=== PATIENT | female | born 1945 | race Caucasian/White ===

== ENCOUNTER 2019-09-10 11:15 | Emergency (ER) | payer OTHER ==
[~2019-09-10] VITALS: Ht 152.4 cm; Wt 65.8 kg
--- OUTSIDE RECORDS SUMMARY | 2019-09-10 11:18 | XMS REPORT | Summary of Care ---
Author Author [facility] Address [address] [place] [address] Phone Unavailable Care Team Providers Care Plant Operations Worker Name Role Phone MILVIA Lopez, AYLA Unavailable Unavailable ROGELIO KAM [place], ISREAL Melton Unavailable Unavailable RYANNE CORREA, PRADEEP Villegas Unavailable Unavailable SHANTELLE DIANA, JOEL Unavailable Unavailable CHRISTOFER Farmer, VANI Unavailable Unavailable CHRISTOFER KAM [place], VANI CORBETT Unavailable Unavailable ROGELIO Farmer, ISREAL Unavailable Unavailable Rodney KAM, Dae Unavailable Unavailable KRISTINE MATTHEWS, JOSE Unavailable Unavailable MILVIA DIANA, AYLA Unavailable Unavailable CARMELO KAM, ARTUR Aaron Unavailable Unavailable Unavailable Unavailable Functional Status Name Dates Details Functional status health issues are not documented Status: Name Dates Details Cognitive status health issues are not documented Status: Problems Name Dates Details Skin lesion (709.9, L98.9) Status: Active Osteoporosis (733.00, M81.0) Status: Active Abrasion of ear (910.0, S00.419A) Status: Active Abnormal finding on thyroid function test (794.5, R94.6) Status: Active Abnormal AST and ALT (790.4, R74.8) Status: Active Abnormal antibody titer (795.79, R76.0) Status: Active Polyarthropathy, 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, 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 Plantar fasciitis (728.71, M72.2) Status: Active Candidiasis, cutaneous (112.3, B37.2) Status: Active Eczema intertrigo (695.89, L30.4) Status: Active Elevated WBCs (288.60, D72.829) Status: Active Dysphagia (787.20, R13.10) Status: Active Screen for colon cancer (V76.51, Z12.11) Status: Active Sore throat (462, J02.9) Status: Active Productive cough (786.2, R05) Status: Active Normal blood pressure Status: Active Chronic cough (786.2, R05) Status: Active Need for pneumococcal vaccination (V03.82, Z23) Status: Active Iron deficiency (280.9, E61.1) Status: Active GERD (gastroesophageal reflux disease) (530.81, K21.9) Status: Active Hypertrophy of nasal turbinates (478.0, J34.3) Status: Active Nasal polyp (471.9, J33.9) Status: Active Dysuria (788.1, R30.0) Status: Active Urinary tract infection (599.0, N39.0) Status: Active Abdominal pain, LLQ (left lower quadrant) (789.04, R10.32) Status: Active Influenza vaccine needed (V04.81, Z23) Status: Active Obesity (BMI 30.0-34.9) (278.00, E66.9) Status: Active Pain in both feet (729.5, M79.671) Status: Active Encounter for mini-mental status examination Status: Active Need for hepatitis C screening test (V73.89, Z11.59) Status: Active Sinusitis (473.9, J32.9) Status: Active Acute non-recurrent maxillary sinusitis (461.0, J01.00) Status: Active Acute pain of right knee (719.46, M25.561) Status: Active Renal cyst, left (753.10, N28.1) Status: Active Upper respiratory infection (465.9, J06.9) Status: Active Limb pain (729.5, M79.609) Status: Active 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, F34.1) Status: Active Postmenopausal hormone replacement therapy (V07.4, Z79.890) Status: Active Advance directive discussed with patient (V65.49, Z71.89) Status: Active Arthralgia of multiple sites (719.49, M25.50) Status: Active Acute vaginitis (616.10, N76.0) Status: Active At low risk for fall (V49.89, Z91.81) Status: Active Depression screening (V79.0, Z13.31) Status: Active 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, 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 History of dry mouth (V12.79, Z87.19) Status: Active Xeroderma (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.39, Q80.9) Status: Active Acute sinus infection (461.9, J01.90) Status: Active Acute upper respiratory infection (465.9, J06.9) Status: Active Other insomnia (780.52, G47.09) Status: Active Visit for screening mammogram (V76.12, Z12.31) Status: Active Osteopenia (733.90, M85.80) Status: Active Acute pain in left eye (379.91, H57.12) Status: Active Bilateral leg cramps (729.82, R25.2) Status: Active Anxiety (300.00, F41.9) Status: Active Seasonal allergic rhinitis (477.9, J30.2) Status: Active Acute bronchitis (466.0, J20.9) Status: Active Knee pain, bilateral (719.46, M25.561) Status: Active Other fatigue (780.79, R53.83) Status: Active 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, F34.1) Status: Active Essential hypertension (401.9, I10) Status: Active Abdominal pain, RUQ (789.01, R10.11) Status: Active Nevus, non-neoplastic (448.1, I78.1) Status: Active Constipation (564.00, K59.00) Status: Active GERD (gastroesophageal reflux disease) (530.81, K21.9) Status: Active History of colon polyps (V12.72, Z86.010) Status: Active Ear pain (388.70, H92.09) Status: Active 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4, R42) Status: Active Abscess of leg (682.6, L02.419) Status: Active Cat bite (879.8, W55.01XA) Status: Active Hyperlipidemia (272.4, E78.5) Status: Active Insomnia (780.52, G47.00) Status: Active Urinary symptom or sign (788.99, R39.9) Status: Active Hematuria (599.70, R31.9) Status: Active Asymptomatic microscopic hematuria (599.72, R31.21) Status: Active Fatigue (780.79, R53.83) Status: Active Shortness of breath (786.05, R06.02) Status: Active Acute bronchitis due to infection (466.0, J20.8) Status: Active Asthma (493.90, J45.909) Status: Active Encounter for screening mammogram for malignant neoplasm of breast (V76.12, Z12.31) Status: Active Estrogen deficiency (256.39, E28.39) Status: Active Dysfunction of left eustachian tube (381.81, H69.82) Status: Active Flu vaccine need (V04.81, Z23) Status: Active Diffuse abdominal pain (789.00, R10.84) Status: Active Candidiasis of breast (112.89, B37.89) Status: Active UTI (urinary tract infection) (599.0, N39.0) Status: Active H. pylori infection (041.86, A04.8) Status: Active Encounter to discuss test results (V65.49, Z71.2) Status: Active Screening for thyroid disorder (V77.0, Z13.29) Status: Active Abdominal pain (789.00, R10.9) Status: Active Hematuria, microscopic (599.72, R31.29) Status: Active Vaginal atrophy (627.3, N95.2) Status: Active Bunion, left (727.1, M21.612) Status: Active Decreased vision of left eye (369.8, H54.62) Status: Active H pylori ulcer (533.90, K27.9) Status: Active Heart palpitations (785.1, R00.2) Status: Active Tachycardia (785.0, R00.0) Status: Active Dry cough (786.2, R05) Status: Active Former smoker (V15.82, Z87.891) Status: Active Medications Name Dates Details Aspirin 81 MG TABS one daily Active Vitamin D3 TABS * Refills: 0 Active Probiotic CAPS * Refills: 0 Active Nystatin 950711 UNIT/GM External Cream APPLY A THIN LAYER TO AFFECTED AREA(S) AND RUB IN WELL TWICE DAILY. * Quantity: 1 Refills: 1 STEEL N.P., AYLA * Start : 14-Apr-2019 Active 30 GM Tube Benzonatate 100 MG Oral Capsule 1-2 caps as needed every 8 hours wit mucinex DM or Delsym OTC. * Quantity: 30 Refills: 0 STEEL N.P., AYLA * Start : 30-Jun-2019 Active Proventil HFA 108 (90 Base) MCG/ACT Inhalation Aerosol Solution INHALE 1 TO 2 PUFFS EVERY 4 TO 6 HOURS NEEDED. * Quantity: 1 Refills: 2 STEEL N.P., AYLA * Start : 20-Jan-2017 Active 6.7 GM Inhaler traZODone HCl - 50 MG Oral Tablet TAKE 1 TABLET AT BEDTIME NEEDED FOR SLEEP. * Quantity: 90 Refills: 1 STEEL N.P., AYLA * Start : 07-Apr-2017 Active Magnesium 400 MG Oral Tablet * Refills: 0 Active Atorvastatin Calcium 10 MG Oral Tablet TAKE 1 TABLET AT BEDTIME. * Quantity: 90 Refills: 1 STEEL N.P., AYLA * Start : 22-Sep-2016 Active Allergies and Adverse Reactions Name Dates Details Bactrim TABS (Allergy) Status: Active Macrobid CAPS (Allergy) Status: Active Iodine (Allergy) Status: Active Past Medical History Name Dates Details History of Acute recurrent sinusitis (461.9, J01.91) Status: Resolved History of allergic rhinitis (V12.69, Z87.09) Status: Resolved History of Anxiety (300.00, F41.9) Status: Resolved History of depression (V11.8, Z86.59) Status: Resolved History of dysthymia (V11.8, Z86.59) Status: Resolved History of Elevated liver function tests (790.6, R94.5) Status: Resolved History of fatigue (V13.89, Z87.898) Status: Resolved History of gastroesophageal reflux (GERD) (V12.79, Z87.19) Status: Resolved History of hiatal hernia (V12.79, Z87.19) Status: Resolved History of high cholesterol (V12.29, Z86.39) Status: Resolved History of Migraines (346.90, G43.909) Status: Resolved History of Multiparity (V61.5, Z64.1) Status: Resolved History of non-neoplastic nevus (V12.59, Z86.79) Status: Resolved History of osteopenia (V13.59, Z87.39) Status: Resolved History of osteoporosis (V13.59, Z87.39) Status: Resolved History of pneumonia (V12.61, Z87.01) Status: Resolved History of pulmonary emphysema (V12.69, Z87.09) Status: Resolved History of screening mammography (V15.89, Z92.89) Status: Resolved Personal history of asthma (V12.69, Z87.09) Status: Resolved Procedures Procedure Dates Details History of Hysterectomy Completed History of CABG Completed History of Bladder Surgery Completed History of Gallbladder surgery Completed History of Hysterectomy total Completed Immunization Name Dates Details Tdap (Adacel) on: Jun-2002 Pneumo on: Jun-2009 DT on: 23-Sep-2010 Fluzone INJ Lot #: [id number] on: 25-Apr-2013 Influenza on: Mar-2014 Zoster (Zostavax) on: 08-Mar-2014 Prevnar 13 Intramuscular Suspension Lot #: [id number] on: 21-Sep-2014 Fluzone INJ Lot #: [id number] on: 09-Feb-2015 Fluzone Quadrivalent 0.5 ML Intramuscular Suspension Prefilled Syringe Lot #: [id number] on: 20-Mar-2016 Fluzone High-Dose 0.5 ML Intramuscular Suspension Prefilled Syringe Lot #: [id number] on: 23-Apr-2017 Fluzone Quadrivalent 0.5 ML Intramuscular Suspension Lot #: [id number] on: 09-Mar-2018 Flucelvax Quadrivalent Intramuscular Suspension Lot #: [id number] on: 30-Mar-2019 Family History Name Dates Details Family history of Alzheimer Disease Comments: Family History Status: Active Name Dates Details Family history of Alzheimer's disease (V17.2, Z82.0) Status: Active Social History Name Dates Details - Status: Name Dates Details Former smoker Never smoker Former smoker Vital Signs Date Test Result Details :55 O2 SAT 97 % Status: Comments: Source: RA :51 BP Systolic 109 mm[Hg] Status: Comments: Location: LUE; Position: Sitting BP Diastolic 66 mm[Hg] Status: Comments: Location: LUE; Position: Sitting Height 60 in Status: Weight 148.125 lb Status: Body Mass Index Calculated 28.93 kg/m2 Status: Body Surface Area Calculated 1.64 m2 Status: Temperature 97.5 f Status: Comments: Method: Temporal Heart Rate 99 /min Status: Comments: Location: L Brachial Artery; Respiration Rate 16 /min Status: :01 Physical Findings 3 Status: Comments: PHQ-9 Adult Depression Screening :57 BP Systolic 125 mm[Hg] Status: Comments: Location: LUE; Position: Sitting BP Diastolic 71 mm[Hg] Status: Comments: Location: LUE; Position: Sitting Height 60 in Status: Weight 146.375 lb Status: Body Mass Index Calculated 28.59 kg/m2 Status: Body Surface Area Calculated 1.63 m2 Status: Temperature 97.8 f Status: Comments: Method: Temporal Heart Rate 114 /min Status: Comments: Location: L Brachial Artery; Respiration Rate 16 /min Status: Results Date Description Value Details Results not documented Plan of Care Name Dates Details Planned Observations Planned Goals not documented Planned Encounters Appointment; DAE SARAH M.D. On: 21-Jul-2019 13:45 Appointment; MARGARET TAPIA M.D. On: 02-Aug-2019 13:20 Appointment; PRADEEP PEARL D.O. On: 14-May-2020 14:10 Instructions Name Dates Details Instructions not documented Encounters Appointment; JOSE CARMONA P.A. Encounter Diagnosis: Problem not documented On: 17-Aug-2017 13:30 Appointment; FRANC ROBERTO M.D. Encounter Diagnosis: Problem not documented On: 01-Oct-2017 13:00 Appointment; JOSE CARMONA P.A. Encounter Diagnosis: Problem not documented On: 19-Oct-2017 11:15 Appointment; JOSE CARMONA P.ABlanco Encounter Diagnosis: Problem not documented On: 29-Oct-2017 13:00 Appointment; JOSE CARMONA PBlancoABlanco Encounter Diagnosis: Problem not documented On: 15-Dec-2017 10:15 Appointment; DAE SARAH M.D. Encounter Diagnosis: Problem not documented On: 24-Dec-2017 14:00 Appointment; BALJEET HARRIS M.D. Encounter Diagnosis: Problem not documented On: 28-Jan-2018 10:15 Appointment; AYLA STEEL NP Encounter Diagnosis: Problem not documented On: 23-Feb-2018 13:00 Appointment; AYLA STEEL CLEANER AND DYER Encounter Diagnosis: Problem not documented On: 09-Mar-2018 11:00 Appointment; AYLA STEEL NP Encounter Diagnosis: Problem not documented On: 09-Mar-2018 11:00 Appointment; JOSE CARMONA P.ABlanco Encounter Diagnosis: Problem not documented On: 16-Mar-2018 11:00 Appointment; JOSE CARMONA P.ABlanco Encounter Diagnosis: Problem not documented On: 16-Mar-2018 11:00 Appointment; JOSE CARMONA P.ABlanco Encounter Diagnosis: Problem not documented On: 16-Mar-2018 11:00 Appointment; [facility] Encounter Diagnosis: Problem not documented On: 18-Mar-2018 10:00 Appointment; [facility] Encounter Diagnosis: Problem not documented On: 18-Mar-2018 11:00 Appointment; JOSE CARMONA P.A. Encounter Diagnosis: Problem not documented On: 17-Jun-2018 11:00 Appointment; AYLA STEEL NP Encounter Diagnosis: Problem not documented On: 29-Jun-2018 14:15 Appointment; JOEL PEPPER NP Encounter Diagnosis: Problem not documented On: 17-Jul-2018 11:15 Appointment; AYLA STEEL NP Encounter Diagnosis: Problem not documented On: 30-Aug-2018 14:30 Appointment; AYLA STEEL NP Encounter Diagnosis: Problem not documented On: 22-Sep-2018 13:00 Appointment; AYLA STEEL CLEANER AND DYER Encounter Diagnosis: Problem not documented On: 13-Dec-2018 10:00 Appointment; AYLA STEEL NP Encounter Diagnosis: Problem not documented On: 25-Dec-2018 10:45 Appointment; AYLA STEEL NP Encounter Diagnosis: Problem not documented On: 28-Dec-2018 11:00 Appointment; AYLA STEEL NP Encounter Diagnosis: Problem not documented On: 26-Jan-2019 14:15 Appointment; PRADEEP PEARL D.O. Encounter Diagnosis: Problem not documented On: 14-Feb-2019 13:40 Appointment; AYLA STEEL NP Encounter Diagnosis: Problem not documented On: 03-Mar-2019 11:00 Appointment; JOEL PEPPER NP Encounter Diagnosis: Problem not documented On: 30-Mar-2019 13:30 Appointment; AYLA STEEL NP Encounter Diagnosis: Problem not documented On: 14-Apr-2019 14:30 Appointment; AYLA STEEL NP Encounter Diagnosis: Problem not documented On: 14-Apr-2019 14:30 Appointment; AYLA STEEL NP Encounter Diagnosis: Problem not documented On: 26-Apr-2019 9:30 Appointment; DAE SARAH M.D. Encounter Diagnosis: Problem not documented On: 13-May-2019 14:15 Appointment; PRADEEP PEARL D.O. Encounter Diagnosis: Problem not documented On: 16-May-2019 14:10 Appointment; AYLA STEEL NP Encounter Diagnosis: Problem not documented On: 23-Jun-2019 14:00 Appointment; AYLA STEEL NP Encounter Diagnosis: Problem not documented On: 30-Jun-2019 14:00
--- OUTSIDE RECORDS SUMMARY | 2019-09-10 11:18 | XMS REPORT | Summary of Care ---
Author Author Taylor Rae Unknown Address [facility] Phone Unavailable Care Team Providers Care Local Government Legislator Name Role Phone MILVIA Lopez, AYLA Unavailable Unavailable ROGELIO KAM [place], ISREAL Melton Unavailable Unavailable RYANNE CORREA, PRADEEP Villegas Unavailable Unavailable SHANTELLE DIANA, JOEL Unavailable Unavailable CHRISTOFER Farmer, VANI Unavailable Unavailable CHRISTOFER KAM [place], VANI CORBETT Unavailable Unavailable ROGELIO Farmer, ISREAL [...] Z87.891) Status: Active Medications Name Dates Details Atorvastatin Calcium 10 MG Oral Tablet TAKE 1 TABLET AT BEDTIME. Quantity: 90 MILVIA N.P., AYLA * Start : 22-Sep-2016 Active Aspirin 81 MG TABS one daily * Refills: 0 M.A. Active Magnesium 400 MG Oral Tablet * Refills: 0 M.A. Active Proventil HFA 108 (90 Base) MCG/ACT Inhalation Aerosol Solution INHALE 1 TO 2 PUFFS EVERY 4 TO 6 HOURS NEEDED. * Quantity: 1 Refills: 2 MILVIA N.P., AYLA * Start : 20-Jan-2017 Active 6.7 GM Inhaler traZODone HCl - 50 MG Oral Tablet TAKE 1 TABLET AT BEDTIME NEEDED FOR SLEEP. * Quantity: 90 Refills: 1 MILVIA N.P., AYLA * Start : 07-Apr-2017 Active Vitamin D3 TABS * Refills: 0 M.A. Active Probiotic CAPS * Refills: 0 M.A. Active Nystatin 699889 UNIT/GM External Cream APPLY A THIN LAYER TO AFFECTED AREA(S) AND RUB IN WELL TWICE DAILY. * Quantity: 1 Refills: 1 MILVIA N.P., AYLA * Start : 14-Apr-2019 Active 30 GM Tube Benzonatate 100 MG Oral Capsule 1-2 caps as needed every 8 hours wit mucinex DM or Delsym OTC. * Quantity: 30 Refills: 0 STEEL N.P., AYLA * Start : 30-Jun-2019 Active Allergies and Adverse Reactions Name Dates [...] DT on: 23-Sep-2010 Fluzone INJ Lot #: [id number] on: 25-Apr-2013 Influenza on: Mar-2014 Zoster (Zostavax) on: 08-Mar-2014 Prevnar 13 Intramuscular Suspension Lot #: [id number] on: 21-Sep-2014 Fluzone INJ Lot #: [id number] on: 09-Feb-2015 Fluzone Quadrivalent 0.5 ML Intramuscular Suspension Prefilled Syringe Lot #: [id number] on: 20-Mar-2016 Fluzone High-Dose 0.5 ML Intramuscular Suspension Prefilled Syringe Lot #: [id number] on: 23-Apr-2017 Fluzone Quadrivalent 0.5 ML Intramuscular Suspension Lot #: [id number] on: 09-Mar-2018 Flucelvax Quadrivalent Intramuscular Suspension Lot #: [id number] on: 30-Mar-2019 Family History Name Dates Details [...] DAE SARAH M.D. On: 21-Jul-2019 13:45 Appointment; PRADEEP PEARL D.O. On: 14-May-2020 14:10 Instructions Name Dates Details Instructions not documented Encounters Appointment; KARI MENSAH P.A. Encounter Diagnosis: Problem not documented On: 15-Jul-2017 12:30 Appointment; JOSE CARMONA P.A. Encounter Diagnosis: Problem not documented On: 17-Aug-2017 13:30 Appointment; FRANC ROBERTO M.D. Encounter Diagnosis: Problem not documented On: 01-Oct-2017 13:00 Appointment; CARMONA, JOSE, P.A. Encounter Diagnosis: Problem not documented On: 19-Oct-2017 11:15 Appointment; JOSE CARMONA P.A. Encounter Diagnosis: Problem not documented On: 29-Oct-2017 13:00 Appointment; JOSE CARMONA P.A. Encounter Diagnosis: Problem not documented On: 15-Dec-2017 10:15 Appointment; DAE SARAH M.D. Encounter Diagnosis: Problem not documented On: 24-Dec-2017 14:00 Appointment; BALJEET HARRIS M.D. Encounter Diagnosis: Problem not documented On: 28-Jan-2018 10:15 Appointment; AYLA STEEL NP Encounter Diagnosis: Problem not documented On: 23-Feb-2018 13:00 Appointment; AYLA STEEL NP Encounter Diagnosis: Problem not documented On: 09-Mar-2018 11:00 Appointment; AYLA STEEL NP Encounter Diagnosis: Problem not documented On: 09-Mar-2018 11:00 Appointment; JOSE CARMONA, P.A. Encounter Diagnosis: Problem not documented On: 16-Mar-2018 11:00 Appointment; JOSE CARMONA, P.A. Encounter Diagnosis: Problem not documented On: 16-Mar-2018 11:00 Appointment; JOSE CARMONA, P.A. Encounter Diagnosis: Problem not documented On: 16-Mar-2018 11:00 Appointment; [facility] Encounter Diagnosis: Problem not documented On: 18-Mar-2018 10:00 Appointment; [facility] Encounter Diagnosis: Problem not [...] documented On: 22-Sep-2018 13:00 Appointment; AYLA STEEL NP Encounter Diagnosis: Problem not documented On: 13-Dec-2018 [...]
--- OUTSIDE RECORDS SUMMARY | 2019-09-10 11:18 | XMS REPORT | Summary of Care ---
Author Author Bertha Alfred M.A. Organization Unknown Address [facility] Phone Unavailable Care Team Providers Care House Mover Supervisor Name Role Phone Bertha Alfred M.A. Unavailable Unavailable MILVIA Lopez, AYLA Unavailable Unavailable ROGELIO KAM [place], ISREAL Melton Unavailable Unavailable RYANNE CORREA, PRADEEP Villegas Unavailable Unavailable SHANTELLE DIANA, JOEL Unavailable Unavailable CHRISTOFER Farmer, VANI Unavailable Unavailable CHRISTOFER KAM [place], VANI CORBETT Unavailable Unavailable ROGELIO Farmer, ISREAL [...] TAKE 1 TABLET AT BEDTIME. Quantity: 90 STEEL N.P., AYLA * Start : 22-Sep-2016 Active Aspirin 81 MG TABS one daily * Refills: 0 Active Magnesium 400 MG Oral Tablet * Refills: 0 Active Proventil HFA 108 (90 Base) MCG/ACT [...] Probiotic CAPS * Refills: 0 Active Nystatin 720642 UNIT/GM External Cream APPLY A THIN LAYER [...] DT on: 23-Sep-2010 Fluzone INJ Lot #: [id number] on: 25-Apr-2013 Influenza on: Mar-2014 Zoster (Zostavax) on: 08-Mar-2014 Prevnar 13 Intramuscular Suspension Lot #: [id number] on: 21-Sep-2014 Fluzone INJ Lot #: [id number] on: 09-Feb-2015 Fluzone Quadrivalent 0.5 ML Intramuscular Suspension Prefilled Syringe Lot #: [id number] on: 20-Mar-2016 Fluzone High-Dose 0.5 ML Intramuscular Suspension Prefilled Syringe Lot #: [id number] on: 23-Apr-2017 Fluzone Quadrivalent 0.5 ML Intramuscular Suspension Lot #: [id number] on: 09-Mar-2018 Flucelvax Quadrivalent Intramuscular Suspension Lot #: [id number] on: 30-Mar-2019 Family History Name Dates Details [...] documented On: 09-Mar-2018 11:00 Appointment; JOSE CARMONA P.A. Encounter Diagnosis: Problem not documented On: 16-Mar-2018 11:00 Appointment; JOSE CARMONA P.ABlanco Encounter Diagnosis: Problem not documented On: 16-Mar-2018 11:00 Appointment; JOSE CARMONA P.A. Encounter Diagnosis: Problem not documented On: 16-Mar-2018 11:00 Appointment; [facility] Encounter Diagnosis: Problem not documented On: 18-Mar-2018 10:00 Appointment; [facility] Encounter Diagnosis: Problem not documented On: 18-Mar-2018 11:00 Appointment; JOSE CARMONA P.ABlanco Encounter Diagnosis: Problem not documented On: 17-Jun-2018 [...]
--- OUTSIDE RECORDS SUMMARY | 2019-09-10 11:18 | XMS REPORT | Summary of Care ---
Author Author Sera Fleming Organization Unknown Address Unknown Phone Unavailable Care Team Providers Care Special Education Teaching Assistant Name Role Phone Sera Fleming Unavailable Unavailable MILVIA NBlancoPBlanco, AYLA Unavailable Unavailable ROGELIO KAM [place], ISREAL Melton Unavailable Unavailable RYANNE CORREA, PRADEEP Villegas Unavailable Unavailable SHANTELLE DIANA, JOEL Unavailable Unavailable CHRISTOFER Farmer, VANI Unavailable Unavailable CHRISTOFER KAM [place], VANI CORBETT Unavailable Unavailable ROGELIO Farmer, ISREAL [...] Probiotic CAPS * Refills: 0 Active Nystatin 737928 UNIT/GM External Cream APPLY A THIN LAYER [...] DT on: 23-Sep-2010 Fluzone INJ Lot #: [id number] on: 25-Apr-2013 Influenza on: Mar-2014 Zoster (Zostavax) on: 08-Mar-2014 Prevnar 13 Intramuscular Suspension Lot #: [id number] on: 21-Sep-2014 Fluzone INJ Lot #: [id number] on: 09-Feb-2015 Fluzone Quadrivalent 0.5 ML Intramuscular Suspension Prefilled Syringe Lot #: [id number] on: 20-Mar-2016 Fluzone High-Dose 0.5 ML Intramuscular Suspension Prefilled Syringe Lot #: [id number] on: 23-Apr-2017 Fluzone Quadrivalent 0.5 ML Intramuscular Suspension Lot #: [id number] on: 09-Mar-2018 Flucelvax Quadrivalent Intramuscular Suspension Lot #: [id number] on: 30-Mar-2019 Family History Name Dates Details [...] Observations Planned Goals not documented Planned Encounters Cardiology Referral Appointment; DAE SARAH M.D. On: 21-Jul-2019 13:45 [...] documented On: 01-Oct-2017 13:00 Appointment; JOSE CARMONA P.ABlanco Encounter Diagnosis: Problem not documented On: 19-Oct-2017 11:15 Appointment; JOSE CARMONA PBlancoABlanco Encounter Diagnosis: Problem not documented On: 29-Oct-2017 [...] documented On: 16-Mar-2018 11:00 Appointment; JOSE CARMONA PBlancoABlanco Encounter Diagnosis: Problem not documented On: 16-Mar-2018 [...]
--- OUTSIDE RECORDS SUMMARY | 2019-09-10 11:19 | XMS REPORT | Summary of Care ---
Author Author AZEEM Lopez, PRESTON Organization Unknown Address Unknown Phone Unavailable Care Team Providers Care Assembler Skylights Name Role Phone MILVIA Lopez, AYLA Unavailable Unavailable KEARA Farmer, DAE Unavailable Unavailable ROGELIO KAM [place], ISREAL Melton Unavailable Unavailable RYANNE CORREA, PRADEEP Villegas Unavailable Unavailable SHANTELLE DIANA, JOEL Unavailable Unavailable CHRISTOFER Farmer, VANI Unavailable Unavailable CHRISTOFER KAM [place], VANI CORBETT Unavailable Unavailable ROGELIO Farmer, ISREAL Unavailable Unavailable Keara KAM, Dae Unavailable Unavailable KRISTINE MATTHEWS, JOSE [...] Upper respiratory infection (465.9, J06.9) Status: Active 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90) [...] Active 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, 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) Status: Active Allergic rhinitis due to pollen (477.0, J30.1) Status: Active 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, 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) Status: Active Gastric reflux syndrome (530.81, K21.9) [...] Status: Active Fatigue (780.79, R53.83) Status: Active Asthma (493.90, J45.909) Status: Active Shortness of breath (786.05, R06.02) Status: Active Encounter for screening mammogram for malignant neoplasm of breast (V76.12, Z12.31) Status: Active Estrogen deficiency (256.39, E28.39) Status: Active Acute bronchitis due to infection (466.0, J20.8) Status: Active Dysfunction of left eustachian tube (381.81, H69.82) Status: Active Flu vaccine need (V04.81, Z23) Status: Active Diffuse abdominal pain (789.00, R10.84) Status: Active Candidiasis of breast (112.89, B37.89) Status: Active UTI (urinary tract infection) (599.0, N39.0) Status: Active Encounter to discuss test results (V65.49, Z71.2) Status: Active H. pylori infection (041.86, A04.8) Status: Active Screening for thyroid disorder (V77.0, Z13.29) Status: Active Hematuria, microscopic (599.72, R31.29) Status: Active Vaginal atrophy (627.3, N95.2) Status: Active Bunion, left (727.1, M21.612) Status: Active Decreased vision of left eye (369.8, H54.62) Status: Active Tachycardia (785.0, R00.0) Status: Active Heart palpitations (785.1, R00.2) Status: Active Dry cough (786.2, R05) Status: Active Former smoker (V15.82, Z87.891) Status: Active Abdominal pain (789.00, R10.9) Status: Active H pylori ulcer (533.90, K27.9) Status: Active Medications Name Dates Details Atorvastatin [...] Probiotic CAPS * Refills: 0 Active Nystatin 942569 UNIT/GM External Cream APPLY A THIN LAYER [...] DT on: 23-Sep-2010 Fluzone INJ Lot #: [id number] on: 25-Apr-2013 Influenza on: Mar-2014 Zoster (Zostavax) on: 08-Mar-2014 Prevnar 13 Intramuscular Suspension Lot #: [id number] on: 21-Sep-2014 Fluzone INJ Lot #: [id number] on: 09-Feb-2015 Fluzone Quadrivalent 0.5 ML Intramuscular Suspension Prefilled Syringe Lot #: [id number] on: 20-Mar-2016 Fluzone High-Dose 0.5 ML Intramuscular Suspension Prefilled Syringe Lot #: [id number] on: 23-Apr-2017 Fluzone Quadrivalent 0.5 ML Intramuscular Suspension Lot #: [id number] on: 09-Mar-2018 Flucelvax Quadrivalent Intramuscular Suspension Lot #: [id number] on: 30-Mar-2019 Family History Name Dates Details [...] Problem not documented On: 15-Dec-2017 10:15 Appointment; DEA SARAH M.D. Encounter Diagnosis: Problem not documented [...] Diagnosis: Problem not documented On: 30-Jun-2019 14:00 Appointment; DAE SARAH M.D. Encounter Diagnosis: Problem not documented On: 21-Jul-2019 13:45
--- OUTSIDE RECORDS SUMMARY | 2019-09-10 11:19 | XMS REPORT | Summary of Care ---
Author Author Alejandra Dean M.A. 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.1, I78.1) Status: Active GERD (gastroesophageal reflux disease) (530.81, [...] of left eye (369.8, H54.62) Status: Active Heart palpitations (785.1, R00.2) Status: Active Tachycardia (785.0, R00.0) Status: Active Dry cough (786.2, R05) Status: Active Former smoker (V15.82, Z87.891) Status: Active Abdominal pain (789.00, R10.9) Status: Active H pylori ulcer (533.90, K27.9) Status: Active Constipation (564.00, K59.00) Status: Active Medications Name Dates Details Atorvastatin Calcium 10 MG Oral Tablet TAKE 1 TABLET BY MOUTH AT BEDTIME Quantity: 90 STEEL N.P., AYLA * Start : 22-Sep-2016 Active Aspirin 81 MG TABS one daily * Refills: 0 Active Magnesium 400 MG Oral Tablet * Refills: 0 Active Vitamin D3 TABS * Refills: 0 Active Probiotic CAPS * Refills: 0 Active traZODone HCl - 50 MG Oral Tablet TAKE 1 TABLET AT BEDTIME NEEDED FOR SLEEP. * Quantity: 90 Refills: 1 STEEL N.P., AYLA * Start : 07-Apr-2017 Active Proventil HFA 108 (90 Base) MCG/ACT Inhalation Aerosol Solution INHALE 1 TO 2 PUFFS EVERY 4 TO 6 HOURS NEEDED. * Quantity: 1 Refills: 2 STEEL N.P., AYLA * Start : 20-Jan-2017 Active 6.7 GM Inhaler Nystatin 399551 UNIT/GM External Cream APPLY A THIN LAYER [...] DT on: 23-Sep-2010 Fluzone INJ Lot #: [id number] on: 25-Apr-2013 Influenza on: Mar-2014 Zoster (Zostavax) on: 08-Mar-2014 Prevnar 13 Intramuscular Suspension Lot #: [id number] on: 21-Sep-2014 Fluzone INJ Lot #: [id number] on: 09-Feb-2015 Fluzone Quadrivalent 0.5 ML Intramuscular Suspension Prefilled Syringe Lot #: [id number] on: 20-Mar-2016 Fluzone High-Dose 0.5 ML Intramuscular Suspension Prefilled Syringe Lot #: [id number] on: 23-Apr-2017 Fluzone Quadrivalent 0.5 ML Intramuscular Suspension Lot #: [id number] on: 09-Mar-2018 Flucelvax Quadrivalent Intramuscular Suspension Lot #: [id number] on: 30-Mar-2019 Family History Name Dates Details Family history of Alzheimer Disease Comments: Family History Status: Active Name Dates Details Family history of Alzheimer's disease (V17.2, Z82.0) Status: Active Social History Name Dates Details - Status: Name Dates Details Former smoker Never smoker Former smoker Vital Signs Date Test Result Details :39 BP Systolic 96 mm[Hg] Status: Comments: Location: LUE; Position: Sitting BP Diastolic 59 mm[Hg] Status: Comments: Location: LUE; Position: Sitting Height 60 in Status: Weight 145 lb Status: Body Mass Index Calculated 28.32 kg/m2 Status: Body Surface Area Calculated 1.63 m2 Status: Heart Rate 91 /min Status: Comments: Location: L Radial; Quality: Normal :55 O2 SAT 97 % Status: Comments: Source: RA :51 BP Systolic 109 mm[Hg] Status: Comments: Location: LUE; Position: Sitting BP Diastolic 66 mm[Hg] Status: Comments: Location: LUE; Position: Sitting Height 60 in Status: Weight 148.125 lb Status: Body Mass Index Calculated 28.93 kg/m2 Status: Body Surface Area Calculated 1.64 m2 Status: Heart Rate 99 /min Status: Comments: Location: L Brachial Artery; Temperature 97.5 f Status: Comments: Method: Temporal Respiration Rate 16 /min Status: :01 Physical Findings 3 Status: Comments: PHQ-9 Adult Depression Screening :57 BP Systolic 125 mm[Hg] Status: Comments: Location: LUE; Position: Sitting BP Diastolic 71 mm[Hg] Status: Comments: Location: LUE; Position: Sitting Height 60 in Status: Weight 146.375 lb Status: Body Mass Index Calculated 28.59 kg/m2 Status: Body Surface Area Calculated 1.63 m2 Status: Heart Rate 114 /min Status: Comments: Location: L Brachial Artery; Temperature 97.8 f Status: Comments: Method: Temporal Respiration Rate 16 /min Status: Results Date Description Value Details Results not documented Plan of Care Name Dates Details Planned Observations Planned Goals not documented Planned Encounters Appointment; AYLA STEEL NP On: 25-Jul-2019 12:30 Appointment; MARGARET TAPIA M.D. On: 02-Aug-2019 13:20 Appointment; DAE SARAH M.D. On: 20-Jan-2020 13:45 Appointment; PRADEEP PEARL D.O. On: 14-May-2020 14:10 Interventions Provided Medication Changes* Atorvastatin Calcium 10 MG Oral Tablet - Renew Instructions Name Dates Details Instructions not documented [...] Problem not documented On: 16-Mar-2018 11:00 Appointment; [place], ECHO Encounter Diagnosis: Problem not documented On: 18-Mar-2018 10:00 Appointment; [facility], ECHO Encounter Diagnosis: Problem not documented On: 18-Mar-2018 11:00 Appointment; JOSE CARMONA P.A. Encounter Diagnosis: Problem not documented On: 17-Jun-2018 11:00 Appointment; AYLA STEEL NP Encounter Diagnosis: Problem not documented On: 29-Jun-2018 14:15 Appointment; JOEL PEPPER PUBLIC POLICY ASSOCIATE Encounter Diagnosis: Problem not documented On: 17-Jul-2018 11:15 Appointment; AYLA STEEL, PUBLIC POLICY ASSOCIATE Encounter Diagnosis: Problem not documented On: 30-Aug-2018 14:30 Appointment; AYLA STEEL PUBLIC POLICY ASSOCIATE Encounter Diagnosis: Problem not documented On: 22-Sep-2018 13:00 Appointment; МАРИЯ STEELI, PUBLIC POLICY ASSOCIATE Encounter Diagnosis: Problem not documented On: 13-Dec-2018 10:00 Appointment; AYLA STEEL, PUBLIC POLICY ASSOCIATE Encounter Diagnosis: Problem not documented On: 25-Dec-2018 10:45 Appointment; AYLA STEEL, PUBLIC POLICY ASSOCIATE Encounter Diagnosis: Problem not documented On: 28-Dec-2018 11:00 Appointment; AYLA STEEL, PUBLIC POLICY ASSOCIATE Encounter Diagnosis: Problem not documented On: 26-Jan-2019 14:15 Appointment; PRADEEP PEARL D.O. Encounter Diagnosis: Problem not documented On: 14-Feb-2019 13:40 Appointment; AYLA STEEL PUBLIC POLICY ASSOCIATE Encounter Diagnosis: Problem not documented On: 03-Mar-2019 11:00 Appointment; JOEL PEPPER PUBLIC POLICY ASSOCIATE Encounter Diagnosis: Problem not documented On: 30-Mar-2019 13:30 Appointment; AYLA STEEL PUBLIC POLICY ASSOCIATE Encounter Diagnosis: Problem not documented On: 14-Apr-2019 14:30 Appointment; AYLA STEEL, PUBLIC POLICY ASSOCIATE Encounter Diagnosis: Problem not documented On: 14-Apr-2019 14:30 Appointment; AYLA STEEL PUBLIC POLICY ASSOCIATE Encounter Diagnosis: Problem not documented On: 26-Apr-2019 9:30 Appointment; DAE SARAH M.D. Encounter Diagnosis: Problem not documented On: 13-May-2019 14:15 Appointment; PRADEEP PEARL D.O. Encounter Diagnosis: Problem not documented On: 16-May-2019 14:10 Appointment; AYLA STEEL PUBLIC POLICY ASSOCIATE Encounter Diagnosis: Problem not documented On: 23-Jun-2019 14:00 Appointment; МАРИЯ STEELI, PUBLIC POLICY ASSOCIATE Encounter Diagnosis: Problem not documented On: 30-Jun-2019 14:00 Appointment; DAE SARAH M.D. Encounter Diagnosis: Problem not documented On: 21-Jul-2019 13:45
--- OUTSIDE RECORDS SUMMARY | 2019-09-10 11:19 | XMS REPORT | Summary of Care ---
Author Author REGINA Farmer, CHETAN Velazquez Unknown Address Unknown Phone Unavailable Care Team Providers Care Public Administration Professor Name Role Phone AYLA STEEL APRN Unavailable Unavailable REGINA Farmer, CHETAN Unavailable Unavailable ROGELIO KAM [place], ISREAL Melton Unavailable Unavailable RYANNE CORREA, PRADEEP Villegas Unavailable Unavailable SHANTELLE HOYTP, JOEL Unavailable Unavailable Regina KAM, Chetan Unavailable Unavailable CHRISTOFER Farmer, VANI Unavailable Unavailable CHRISTOFER KAM [place], VANI CORBETT Unavailable Unavailable ROGELIO Farmer, ISREAL Unavailable Unavailable Dae Sarah MD Unavailable Unavailable KRISTINE MATTHEWS, JOSE Unavailable Unavailable [...] Status: Active 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, F34.1) Status: Active Abdominal pain, RUQ (789.01, R10.11) [...] of left eye (369.8, H54.62) Status: Active Dry cough (786.2, R05) Status: Active Abdominal pain (789.00, R10.9) Status: Active H pylori ulcer (533.90, K27.9) Status: Active Constipation (564.00, K59.00) Status: Active Former smoker (V15.82, Z87.891) Status: Active Essential hypertension (401.9, I10) Status: Active Heart palpitations (785.1, R00.2) Status: Active Tachycardia (785.0, R00.0) Status: Active Medications Name Dates Details Atorvastatin Calcium 10 MG Oral Tablet TAKE 1 TABLET BY MOUTH AT BEDTIME Quantity: 90 AYLA STEEL APRN * Start : 22-Sep-2016 Active Aspirin 81 MG TABS one daily * Refills: 0 Active Magnesium 400 MG Oral Tablet * Refills: 0 Active Proventil HFA 108 (90 Base) MCG/ACT Inhalation Aerosol Solution INHALE 1 TO 2 PUFFS EVERY 4 TO 6 HOURS NEEDED. * Quantity: 1 Refills: 2 AYLA STEEL APRN * Start : 20-Jan-2017 Active 6.7 GM Inhaler traZODone HCl - 50 MG Oral Tablet TAKE 1 TABLET AT BEDTIME NEEDED FOR SLEEP. * Quantity: 90 Refills: 1 AYLA STEEL APRN * Start : 07-Apr-2017 Active Vitamin D3 TABS * Refills: 0 Active Probiotic CAPS * Refills: 0 Active Nystatin 810109 UNIT/GM External Cream APPLY A THIN LAYER TO AFFECTED AREA(S) AND RUB IN WELL TWICE DAILY. * Quantity: 1 Refills: 1 AYLA STEEL APRN * Start : 14-Apr-2019 Active 30 GM Tube Benzonatate 100 MG Oral Capsule 1-2 caps as needed every 8 hours wit mucinex DM or Delsym OTC. * Quantity: 30 Refills: 0 AYLA STEEL APRN * Start : 30-Jun-2019 Active Cranberry CAPS TAKE 1 CAPSULE DAILY * Refills: 0 Active Allergies and Adverse Reactions Name Dates [...] Z87.09) Status: Resolved Procedures Procedure Dates Details [N] Holter Monitor-24 hr. Date: 02-Aug-2019 History of Hysterectomy Completed History of Bladder Surgery Completed History of Gallbladder surgery Completed History of Hysterectomy total Completed History of CABG Completed Immunization Name Dates Details Tdap (Adacel) on: Jun-2002 Pneumo on: Jun-2009 DT on: 23-Sep-2010 Fluzone INJ Lot #: [id number] on: 25-Apr-2013 Influenza on: Mar-2014 Zoster (Zostavax) on: 08-Mar-2014 Prevnar 13 Intramuscular Suspension Lot #: [id number] on: 21-Sep-2014 Fluzone INJ Lot #: [id number] on: 09-Feb-2015 Fluzone Quadrivalent 0.5 ML Intramuscular Suspension Prefilled Syringe Lot #: [id number] on: 20-Mar-2016 Fluzone High-Dose 0.5 ML Intramuscular Suspension Prefilled Syringe Lot #: [id number] on: 23-Apr-2017 Fluzone Quadrivalent 0.5 ML Intramuscular Suspension Lot #: [id number] on: 09-Mar-2018 Flucelvax Quadrivalent Intramuscular Suspension Lot #: [id number] on: 30-Mar-2019 Family History Name Dates Details Family history of Alzheimer's disease (V17.2, Z82.0) Comments: Family History Status: Active Name Dates Details FH: CABG (coronary artery bypass surgery) (V17.3, Z82.49) Status: Active Name Dates Details Family history of Alzheimer's disease (V17.2, Z82.0) Status: Active Name Dates Details Family history of cerebrovascular accident (CVA) (V17.1, Z82.3) Status: Active Name Dates Details Family history of cardiac disorder (V17.49, Z82.49) Status: Active Social History Name Dates Details - Status: Name Dates Details Ex-smoker (finding) Never smoked tobacco (finding) Ex-smoker (finding) Vital Signs Date Test Result Details [id number] Systolic blood pressure 113 mm[Hg] Status: Comments: Location: LUE; Position: Sitting Diastolic blood pressure 65 mm[Hg] Status: Comments: Location: LUE; Position: Sitting Body height 60 in Status: Weight 145.5 lb Status: Body mass index (BMI) [Ratio] 28.42 kg/m2 Status: Body surface area Derived from formula 1.63 m2 Status: Heart Rate 77 /min Status: Respiratory rate 16 /min Status: [id number] Systolic blood pressure 96 mm[Hg] Status: Comments: Location: LUE; Position: Sitting Diastolic blood pressure 59 mm[Hg] Status: Comments: Location: LUE; Position: Sitting Body height 60 in Status: Weight 145 lb Status: Body mass index (BMI) [Ratio] 28.32 kg/m2 Status: Body surface area Derived from formula 1.63 m2 Status: Heart Rate 91 /min Status: Comments: Location: L Radial; Results Date Description Value Details Results not documented Plan of Care Name Dates Details Planned Observations [N] Holter Monitor-24 hr. On: 02-Aug-2019 Intent Planned Goals not documented Planned Encounters Appointment; JOANNA OJEDA On: 11-Aug-2019 14:00 Appointment; CHETAN TAPIA M.D. On: 06-Sep-2019 14:40 Appointment; DAE SARAH M.D. On: 20-Jan-2020 13:45 Appointment; PRADEEP PEARL D.O. On: 14-May-2020 14:10 Interventions Provided Labs/Procedures/Imaging* Tobacco Use Screening; Done: 02 Aug 2019 Plan* We will obtain 24h holter monitor for now and she will follow up with results Instructions Name Dates Details Instructions not documented Encounters Appointment; JOSE CARMONA P.A. Encounter Diagnosis: Problem not documented On: 17-Aug-2017 13:30 Appointment; FRANC ROBERTO M.D. Encounter Diagnosis: Problem not documented On: 01-Oct-2017 13:00 Appointment; JOSE CARMONA P.A. Encounter Diagnosis: Problem not documented On: 19-Oct-2017 11:15 Appointment; JOSE CARMONA P.A. Encounter Diagnosis: Problem not documented On: 29-Oct-2017 13:00 Appointment; JOSE CARMONA P.ABlanco Encounter Diagnosis: Problem not documented On: 15-Dec-2017 10:15 Appointment; DAE SARAH M.D. Encounter Diagnosis: Problem not documented On: 24-Dec-2017 14:00 Appointment; BALJEET HARRIS M.D. Encounter Diagnosis: Problem not documented On: 28-Jan-2018 10:15 Appointment; AYLA STEEL APRN Encounter Diagnosis: Problem not documented On: 23-Feb-2018 13:00 Appointment; AYLA STEEL APRN Encounter Diagnosis: Problem not documented On: 09-Mar-2018 11:00 Appointment; AYLA STEEL APRN Encounter Diagnosis: Problem not documented On: 09-Mar-2018 11:00 Appointment; JOSE CARMONA PBlancoABlanco Encounter Diagnosis: Problem not documented On: 16-Mar-2018 11:00 Appointment; JOSE CARMONA PBlancoABlanco Encounter Diagnosis: Problem not documented On: 16-Mar-2018 11:00 Appointment; JOSE CARMONA PBlancoABlanco Encounter Diagnosis: Problem not documented On: 16-Mar-2018 11:00 Appointment; [place]-[facility], ECHO Encounter Diagnosis: Problem not documented On: 18-Mar-2018 10:00 Appointment; [place], ECHO Encounter Diagnosis: Problem not documented On: 18-Mar-2018 11:00 Appointment; JOSE CARMONA P.A. Encounter Diagnosis: Problem not documented On: 17-Jun-2018 11:00 Appointment; AYLA STEEL APRN Encounter Diagnosis: Problem not documented On: 29-Jun-2018 14:15 Appointment; JOEL PEPPER APRN Encounter Diagnosis: Problem not documented On: 17-Jul-2018 11:15 Appointment; AYLA STEEL SEISMIC PROSPECTING OBSERVER Encounter Diagnosis: Problem not documented On: 30-Aug-2018 14:30 Appointment; AYLA STEEL APRN Encounter Diagnosis: Problem not documented On: 22-Sep-2018 13:00 Appointment; AYLA STEEL SEISMIC PROSPECTING OBSERVER Encounter Diagnosis: Problem not documented On: 13-Dec-2018 10:00 Appointment; AYLA STEEL APRN Encounter Diagnosis: Problem not documented On: 25-Dec-2018 10:45 Appointment; AYLA STEEL APRN Encounter Diagnosis: Problem not documented On: 28-Dec-2018 11:00 Appointment; AYLA STEEL APRN Encounter Diagnosis: Problem not documented On: 26-Jan-2019 14:15 Appointment; PRADEEP PEARL D.O. Encounter Diagnosis: Problem not documented On: 14-Feb-2019 13:40 Appointment; AYLA STEEL APRN Encounter Diagnosis: Problem not documented On: 03-Mar-2019 11:00 Appointment; JOEL PEPPER APRN Encounter Diagnosis: Problem not documented On: 30-Mar-2019 13:30 Appointment; AYLA STEEL APRN Encounter Diagnosis: Problem not documented On: 14-Apr-2019 14:30 Appointment; AYLA STEEL SEISMIC PROSPECTING OBSERVER Encounter Diagnosis: Problem not documented On: 14-Apr-2019 14:30 Appointment; AYLA STEEL APRN Encounter Diagnosis: Problem not documented On: 26-Apr-2019 9:30 Appointment; DAE SARAH M.D. Encounter Diagnosis: Problem not documented On: 13-May-2019 14:15 Appointment; PRADEEP PEARL D.O. Encounter Diagnosis: Problem not documented On: 16-May-2019 14:10 Appointment; AYLA STEEL APRN Encounter Diagnosis: Problem not documented On: 23-Jun-2019 14:00 Appointment; AYLA STEEL APRN Encounter Diagnosis: Problem not documented On: 30-Jun-2019 14:00 Appointment; DAE SARAH M.D. Encounter Diagnosis: Problem not documented On: 21-Jul-2019 13:45 Appointment; CHETAN TAPIA M.D. Encounter Diagnosis: Problem not documented On: 02-Aug-2019 13:20
--- OUTSIDE RECORDS SUMMARY | 2019-09-10 11:19 | XMS REPORT | Summary of Care ---
Author Author [facility] Address [address] [place] [address] Phone Unavailable Care Team Providers Care Requirements Manager Name Role Phone MILVIA Lopez, AYLA Unavailable Unavailable ROGELIO KAM [place], ISREAL Melton Unavailable Unavailable RYANNE CORREA, PRADEEP Villegas Unavailable Unavailable SHANTELLE DIANA, JOEL Unavailable Unavailable CHRISTOFER Farmer, VANI Unavailable Unavailable CHRISTOFER KAM ID, VANI CORBETT Unavailable Unavailable ROGELIO Farmer, ISREAL [...] Active Bunion, left (727.1, M21.612) Status: Active H pylori ulcer (533.90, K27.9) Status: Active Decreased vision of left eye (369.8, H54.62) Status: Active Tachycardia (785.0, R00.0) Status: Active Heart palpitations (785.1, R00.2) Status: Active Dry cough (786.2, R05) Status: Active Former smoker (V15.82, Z87.891) Status: Active Medications Name Dates Details Vitamin D3 TABS Active Probiotic CAPS * Refills: 0 Active Nystatin 601890 UNIT/GM External Cream APPLY A THIN LAYER TO AFFECTED AREA(S) AND RUB IN WELL TWICE DAILY. * Quantity: 1 Refills: 1 MILVIA N.P.AYLA * Start : 14-Apr-2019 Active 30 GM Tube traZODone HCl - 50 MG Oral Tablet TAKE 1 TABLET AT BEDTIME NEEDED FOR SLEEP. * Quantity: 90 Refills: 1 MILVIA N.P.AYLA * Start : 07-Apr-2017 Active Benzonatate 100 MG Oral Capsule 1-2 caps as needed every 8 hours wit mucinex DM or Delsym OTC. * Quantity: 30 Refills: 0 MILVIA N.P., AYLA * Start : 30-Jun-2019 Active Proventil HFA 108 (90 Base) MCG/ACT Inhalation Aerosol Solution INHALE 1 TO 2 PUFFS EVERY 4 TO 6 HOURS NEEDED. * Quantity: 1 Refills: 2 MILVIA N.P., AYLA * Start : 20-Jan-2017 Active 6.7 GM Inhaler Aspirin 81 MG TABS one daily * Refills: 0 Active Atorvastatin Calcium 10 MG Oral Tablet TAKE 1 TABLET AT BEDTIME. * Quantity: 90 Refills: 1 MILVIA N.P.AYLA * Start : 22-Sep-2016 Active Magnesium 400 MG Oral Tablet * Refills: 0 Active Allergies and Adverse [...] DT on: 23-Sep-2010 Fluzone INJ Lot #: [id number] on: 25-Apr-2013 Influenza on: Mar-2014 Zoster (Zostavax) on: 08-Mar-2014 Prevnar 13 Intramuscular Suspension Lot #: [id number] on: 21-Sep-2014 Fluzone INJ Lot #: [id number] on: 09-Feb-2015 Fluzone Quadrivalent 0.5 ML Intramuscular Suspension Prefilled Syringe Lot #: [id number] on: 20-Mar-2016 Fluzone High-Dose 0.5 ML Intramuscular Suspension Prefilled Syringe Lot #: [id number] on: 23-Apr-2017 Fluzone Quadrivalent 0.5 ML Intramuscular Suspension Lot #: [id number] on: 09-Mar-2018 Flucelvax Quadrivalent Intramuscular Suspension Lot #: [id number] on: 30-Mar-2019 Family History Name Dates Details [...] documented On: 23-Feb-2018 13:00 Appointment; AYLA STEEL STERILE INSTRUMENT TECHNICIAN Encounter Diagnosis: Problem not documented On: 09-Mar-2018 [...] documented On: 22-Sep-2018 13:00 Appointment; AYLA STEEL STERILE INSTRUMENT TECHNICIAN Encounter Diagnosis: Problem not documented On: 13-Dec-2018 [...] Problem not documented On: 14-Apr-2019 14:30 Appointment; YALA STEEL NP Encounter Diagnosis: Problem not documented [...]
--- OUTSIDE RECORDS SUMMARY | 2019-09-10 11:19 | XMS REPORT | Summary of Care ---
Author Author Rodrigo Hayes, Edna Organization Unknown Address Unknown Phone Unavailable Care Team Providers Care Customer Service Sales Consultant Name Role Phone MILVIA Lopez, AYLA Unavailable Unavailable KEARA Farmer, DAE Unavailable Unavailable ROGELIO KAM [place], ISREAL Melton Unavailable Unavailable RYANNE CORREA, PRADEEP Villegas Unavailable Unavailable SHANTELLE DIANA, JOEL Unavailable Unavailable CHRISTOFER Farmer, VANI Unavailable Unavailable CHRISTOFER KAM [place], VANI CORBETT Unavailable Unavailable ROGELIO Farmer, ISREAL [...] Probiotic CAPS * Refills: 0 Active Nystatin 171370 UNIT/GM External Cream APPLY A THIN LAYER [...] DT on: 23-Sep-2010 Fluzone INJ Lot #: [id number] on: 25-Apr-2013 Influenza on: Mar-2014 Zoster (Zostavax) on: 08-Mar-2014 Prevnar 13 Intramuscular Suspension Lot #: [id number] on: 21-Sep-2014 Fluzone INJ Lot #: [id number] on: 09-Feb-2015 Fluzone Quadrivalent 0.5 ML Intramuscular Suspension Prefilled Syringe Lot #: [id number] on: 20-Mar-2016 Fluzone High-Dose 0.5 ML Intramuscular Suspension Prefilled Syringe Lot #: [id number] on: 23-Apr-2017 Fluzone Quadrivalent 0.5 ML Intramuscular Suspension Lot #: [id number] on: 09-Mar-2018 Flucelvax Quadrivalent Intramuscular Suspension Lot #: [id number] on: 30-Mar-2019 Family History Name Dates Details [...] Planned Goals not documented Planned Encounters Appointment; MARGARET TAPIA M.D. On: 02-Aug-2019 13:20 Appointment; PRADEEP PEARL D.O. On: 14-May-2020 14:10 Interventions Provided Plan* Laxative tea daily * Increased water intake exercise increase fiber in diet * Constipation education has been given and provided * Turn to clinic in 6 months Instructions Name Dates Details Instructions not documented Encounters Appointment; JOSE CARMNOA P.A. Encounter Diagnosis: Problem not documented On: [...] documented On: 16-Mar-2018 11:00 Appointment; JOSE CARMONA PNereida Encounter Diagnosis: Problem not documented On: 16-Mar-2018 [...] Problem not documented On: 17-Jul-2018 11:15 Appointment; МАРИЯ STEELI, MEDICAL INSURANCE CLAIMS PROCESSOR Encounter Diagnosis: Problem not documented On: 30-Aug-2018 14:30 Appointment; AYLA STEEL, MEDICAL INSURANCE CLAIMS PROCESSOR Encounter Diagnosis: Problem not documented On: 22-Sep-2018 13:00 Appointment; МАРИЯ STEELI, MEDICAL INSURANCE CLAIMS PROCESSOR Encounter Diagnosis: Problem not documented On: 13-Dec-2018 10:00 Appointment; МАРИЯ STEELI, MEDICAL INSURANCE CLAIMS PROCESSOR Encounter Diagnosis: Problem not documented On: 25-Dec-2018 10:45 Appointment; AYLA STEEL MEDICAL INSURANCE CLAIMS PROCESSOR Encounter Diagnosis: Problem not documented On: 28-Dec-2018 11:00 Appointment; МАРИЯ STEELI, MEDICAL INSURANCE CLAIMS PROCESSOR Encounter Diagnosis: Problem not documented On: 26-Jan-2019 14:15 Appointment; PRADEEP PEARL D.O. Encounter Diagnosis: Problem not documented On: 14-Feb-2019 13:40 Appointment; AYLA STEEL MEDICAL INSURANCE CLAIMS PROCESSOR Encounter Diagnosis: Problem not documented On: 03-Mar-2019 11:00 Appointment; JOEL PEPPER NP Encounter Diagnosis: Problem not documented On: 30-Mar-2019 13:30 Appointment; AYLA STEEL, MEDICAL INSURANCE CLAIMS PROCESSOR Encounter Diagnosis: Problem not documented On: 14-Apr-2019 14:30 Appointment; MILVIA AYLA, MEDICAL INSURANCE CLAIMS PROCESSOR Encounter Diagnosis: Problem not documented On: 14-Apr-2019 14:30 Appointment; МАРИЯ STEELI, MEDICAL INSURANCE CLAIMS PROCESSOR Encounter Diagnosis: Problem not documented On: 26-Apr-2019 9:30 Appointment; DAE SARAH M.D. Encounter Diagnosis: Problem not documented On: 13-May-2019 14:15 Appointment; PRADEEP PEARL D.O. Encounter Diagnosis: Problem not documented On: 16-May-2019 14:10 Appointment; AYLA STEEL, MEDICAL INSURANCE CLAIMS PROCESSOR Encounter Diagnosis: Problem not documented On: 23-Jun-2019 14:00 Appointment; MILVIA AYLA, MEDICAL INSURANCE CLAIMS PROCESSOR Encounter Diagnosis: Problem not documented On: 30-Jun-2019 14:00 Appointment; DAE SARAH M.D. Encounter Diagnosis: Problem not documented On: 21-Jul-2019 13:45
--- OUTSIDE RECORDS SUMMARY | 2019-09-10 11:20 | XMS REPORT | Summary of Care ---
Author Author Dacia Alonzo M.A. Unknown Address Unknown Phone Unavailable Care Team Providers Care Superintendent Transportation Name Role Phone MILVIA IBRAHIM, AYLA Unavailable Unavailable ROGELIO KAM [place], ISREAL Melton Unavailable Unavailable RYANNE CORREA, PRADEEP Villegas Unavailable Unavailable SHANTELLE DIANA, JOEL Unavailable Unavailable Aspen KAM, Chetan Unavailable Unavailable CHRISTOFER Farmer, VANI Unavailable Unavailable CHRISTOFER KAM [place], VANI CORBETT Unavailable Unavailable ROGELIO Farmer, ISREAL Unavailable Unavailable Dae Sarah MD Unavailable Unavailable KRSITINE MATTHEWS, JOSE Unavailable Unavailable MILVIA DIANA, AYLA [...] Probiotic CAPS * Refills: 0 Active Nystatin 441381 UNIT/GM External Cream APPLY A THIN LAYER TO AFFECTED AREA(S) AND RUB IN WELL TWICE DAILY. * Quantity: 1 Refills: 1 AYLA STEEL APRN Start : 14-Apr-2019 Active 30 GM Tube Cranberry CAPS TAKE 1 CAPSULE DAILY * [...] DT on: 23-Sep-2010 Fluzone INJ Lot #: [id number] on: 25-Apr-2013 Influenza on: Mar-2014 Zoster (Zostavax) on: 08-Mar-2014 Prevnar 13 Intramuscular Suspension Lot #: [id number] on: 21-Sep-2014 Fluzone INJ Lot #: [id number] on: 09-Feb-2015 Fluzone Quadrivalent 0.5 ML Intramuscular Suspension Prefilled Syringe Lot #: [id number] on: 20-Mar-2016 Fluzone High-Dose 0.5 ML Intramuscular Suspension Prefilled Syringe Lot #: [id number] on: 23-Apr-2017 Fluzone Quadrivalent 0.5 ML Intramuscular Suspension Lot #: [id number] on: 09-Mar-2018 Flucelvax Quadrivalent Intramuscular Suspension Lot #: [id number] on: 30-Mar-2019 Family History Name Dates Details [...] (finding) Vital Signs Date Test Result Details :29 Systolic blood pressure 107 mm[Hg] Status: Comments: Location: LUE; Position: Sitting Diastolic blood pressure 67 mm[Hg] Status: Comments: Location: LUE; Position: Sitting Body height 60 in Status: Weight 145 lb Status: Body mass index (BMI) [Ratio] 28.32 kg/m2 Status: Body surface area Derived from formula 1.63 m2 Status: Body temperature 97.5 f Status: Comments: Method: Temporal Heart Rate 85 /min Status: Comments: Location: L Brachial Artery; Respiratory rate 16 /min Status: Physical Findings 0 Status: Comments: Alcohol Screen - How many times in the past yr have you had 5 (for M) or 4 (for F) or 4 (for all > 65yrs) or more drinks in a day? :36 Systolic blood pressure 113 mm[Hg] Status: Comments: Location: LUE; Position: Sitting Diastolic blood pressure 65 mm[Hg] Status: Comments: Location: LUE; Position: Sitting Body height 60 in Status: Weight 145.5 lb Status: Body mass index (BMI) [Ratio] 28.42 kg/m2 Status: Body surface area Derived from formula 1.63 m2 Status: Heart Rate 77 /min Status: Respiratory rate 16 /min Status: :39 Systolic blood pressure 96 mm[Hg] Status: Comments: Location: LUE; Position: Sitting Diastolic blood pressure 59 mm[Hg] Status: Comments: Location: LUE; Position: Sitting Body height 60 in Status: Weight 145 lb Status: Body mass index (BMI) [Ratio] 28.32 kg/m2 Status: Body surface area Derived from formula 1.63 m2 Status: Heart Rate 91 /min Status: Comments: Location: L Radial; Results Date Description Value Details [id number] [O] Urine Dipstick (In Office) Glucose normal (Normal) LEUKOCYTES neg (Normal) NITRITE neg (Normal) UROBILINOGEN normal (Normal) PROTEIN trace pH 5 URINE BLOOD trace SPECIFIC GRAVITY 1.020 KETONES neg (Normal) BILIRUBIN normal (Normal) COLOR URINE yellow APPEARANCE clear 9-Byn-545588:45 Glucose (Point of Care In Office) Glucose POC Lifescan 102 Plan of Care Name Dates Details Planned Observations Planned Goals not documented Planned Encounters Appointment; JOANNA OJEDA On: 11-Aug-2019 14:00 Appointment; CHETAN TAPIA M.D. On: 06-Sep-2019 14:40 Appointment; DAE SARAH M.D. On: 20-Jan-2020 13:45 Appointment; PRADEEP PEARL D.O. On: 14-May-2020 14:10 Interventions Provided Labs/Procedures/Imaging* [O] Urine Dipstick (In Office); Done: 11 Aug 2019 * Glucose (Point of Care In Office); Done: 11 Aug 2019 Instructions Name Dates Details Instructions not documented [...] documented On: 09-Mar-2018 11:00 Appointment; JOSE CARMONA PNereida Encounter Diagnosis: [...] documented On: 17-Jul-2018 11:15 Appointment; AYLA STEEL APRN Encounter Diagnosis: Problem not documented On: 30-Aug-2018 14:30 Appointment; AYLA STEEL APRN Encounter Diagnosis: Problem not documented On: 22-Sep-2018 13:00 Appointment; AYLA STEEL APRN Encounter Diagnosis: Problem not documented On: 13-Dec-2018 [...] Diagnosis: Problem not documented On: 02-Aug-2019 13:20 Appointment; AYLA STEEL APRN Encounter Diagnosis: Problem not documented On: 11-Aug-2019 13:30
--- OUTSIDE RECORDS SUMMARY | 2019-09-10 11:20 | XMS REPORT | Summary of Care ---
Author Author [facility] Address [address] [place] [address] Phone Unavailable Care Team Providers Care Mid Teacher Name Role Phone AYLA STEEL APRN Unavailable Unavailable ROGELIO KAM [place], ISREAL Melton Unavailable Unavailable RYANNE CORREA, PRADEEP Villgeas Unavailable Unavailable SHANTELLE DIANA, JOEL Unavailable Unavailable [...] STEEL APRN * Start : 07-Apr-2017 Active Proventil HFA 108 (90 Base) MCG/ACT Inhalation Aerosol Solution INHALE 1 TO 2 PUFFS EVERY 4 TO 6 HOURS NEEDED. * Quantity: 1 Refills: 2 AYLA STEEL APRN * Start : 20-Jan-2017 Active 6.7 GM Inhaler Nystatin 952616 UNIT/GM External Cream APPLY A THIN LAYER TO AFFECTED AREA(S) AND RUB IN WELL TWICE DAILY. * Quantity: 1 Refills: 1 AYLA STEEL APRN * Start : 14-Apr-2019 Active 30 GM Tube Benzonatate 100 MG Oral Capsule 1-2 caps as needed every 8 hours wit mucinex DM or Delsym OTC. * Quantity: 30 Refills: 0 AYLA STEEL APRN Start : 30-Jun-2019 Active Cranberry CAPS TAKE [...] DT on: 23-Sep-2010 Fluzone INJ Lot #: [id number] on: 25-Apr-2013 Influenza on: Mar-2014 Zoster (Zostavax) on: 08-Mar-2014 Prevnar 13 Intramuscular Suspension Lot #: [id number] on: 21-Sep-2014 Fluzone INJ Lot #: [id number] on: 09-Feb-2015 Fluzone Quadrivalent 0.5 ML Intramuscular Suspension Prefilled Syringe Lot #: [id number] on: 20-Mar-2016 Fluzone High-Dose 0.5 ML Intramuscular Suspension Prefilled Syringe Lot #: [id number] on: 23-Apr-2017 Fluzone Quadrivalent 0.5 ML Intramuscular Suspension Lot #: [id number] on: 09-Mar-2018 Flucelvax Quadrivalent Intramuscular Suspension Lot #: [id number] on: 30-Mar-2019 Family History Name Dates Details [...] (finding) Vital Signs Date Test Result Details [id number] Systolic blood pressure 113 mm[Hg] Status: Comments: Location: LUE; Position: Sitting Diastolic blood pressure 65 mm[Hg] Status: Comments: Location: LUE; Position: Sitting Body height 60 in Status: Weight 145.5 lb Status: Body mass index (BMI) [Ratio] 28.42 kg/m2 Status: Body surface area Derived from formula 1.63 m2 Status: Heart Rate 77 /min Status: Respiratory rate 16 /min Status: 33-Jwy-599865:39 Systolic blood pressure 96 mm[Hg] Status: Comments: [...] not documented Planned Encounters Appointment; AYLA STEEL APRN On: 11-Aug-2019 13:30 Appointment; JOANNA OJEDA On: 11-Aug-2019 14:00 Appointment; CHETAN TAPIA M.D. On: 06-Sep-2019 14:40 Appointment; DAE SARAH M.D. On: 20-Jan-2020 13:45 Appointment; PRADEEP PEARL D.O. On: 14-May-2020 14:10 Instructions Name Dates Details Instructions not documented Encounters Appointment; JOSE CARMONA P.A. Encounter Diagnosis: Problem not documented On: 17-Aug-2017 13:30 Appointment; FRANC ROBERTO M.D. Encounter Diagnosis: Problem not documented On: 01-Oct-2017 13:00 Appointment; JOSE CAMRONA P.A. Encounter Diagnosis: Problem not documented On: [...] Problem not documented On: 17-Jun-2018 11:00 Appointment; AYAL STEEL APRN Encounter Diagnosis: Problem not documented On: 29-Jun-2018 14:15 Appointment; SHANTELLE, JOEL, MILKING MACHINE OPERATOR Encounter Diagnosis: Problem not documented On: 17-Jul-2018 [...] not documented On: 28-Dec-2018 11:00 Appointment; AYLA TSEEL APRN Encounter Diagnosis: Problem not documented On: [...]
--- OUTSIDE RECORDS SUMMARY | 2019-09-10 11:20 | XMS REPORT | Summary of Care ---
Author Author [facility] Address [address] [place] [address] Phone Unavailable Care Team Providers Care Real Estate Photographer Name Role Phone AYLA STEEL APRN Unavailable Unavailable ROGELIO KAM [place], ISREAL Melton Unavailable Unavailable RYANNE CORREA, PRADEEP Villegas Unavailable Unavailable SHANTELLE DIANA, JOEL Unavailable Unavailable Aspen KAM, Chetan Unavailable Unavailable CHRISTOFER Farmer, VANI Unavailable Unavailable CHRISTOFER KAM [place], VANI CORBETT Unavailable Unavailable ROGELIO Farmer, ISREAL [...] Probiotic CAPS * Refills: 0 Active Nystatin 940193 UNIT/GM External Cream APPLY A THIN LAYER [...] DT on: 23-Sep-2010 Fluzone INJ Lot #: [id number] on: 25-Apr-2013 Influenza on: Mar-2014 Zoster (Zostavax) on: 08-Mar-2014 Prevnar 13 Intramuscular Suspension Lot #: [id number] on: 21-Sep-2014 Fluzone INJ Lot #: [id number] on: 09-Feb-2015 Fluzone Quadrivalent 0.5 ML Intramuscular Suspension Prefilled Syringe Lot #: [id number] on: 20-Mar-2016 Fluzone High-Dose 0.5 ML Intramuscular Suspension Prefilled Syringe Lot #: [id number] on: 23-Apr-2017 Fluzone Quadrivalent 0.5 ML Intramuscular Suspension Lot #: [id number] on: 09-Mar-2018 Flucelvax Quadrivalent Intramuscular Suspension Lot #: [id number] on: 30-Mar-2019 Family History Name Dates Details [...] documented On: 01-Oct-2017 13:00 Appointment; JOSE CARMONA PBlancoABlanco Encounter Diagnosis: Problem not documented On: 19-Oct-2017 [...] Problem not documented On: 16-Mar-2018 11:00 Appointment; KEELEY OJEDA Encounter Diagnosis: Problem not documented On: 18-Mar-2018 10:00 Appointment; [facility] Encounter Diagnosis: Problem not documented On: [...]
--- OUTSIDE RECORDS SUMMARY | 2019-09-10 11:20 | XMS REPORT | Summary of Care ---
Author Author Dex Hinton Organization Unknown Address Unknown Phone Unavailable Care Team Providers Care Burial Needs Salesperson Name Role Phone AYLA STEEL APRN Unavailable Unavailable Dex Hinton Unavailable Unavailable ROGELIO KAM [place], ISREAL Melton Unavailable Unavailable RYANNE CORREA, PRADEEP Villegas Unavailable Unavailable SHANTELLE HOYTP, JOEL Unavailable Unavailable Aspen KAM, Chetan Unavailable Unavailable CHRISTOFER Farmer, VANI Unavailable Unavailable CHRISTOFER KAM [place], VANI CORBETT Unavailable Unavailable ROGELIO Farmer, ISREAL [...] Probiotic CAPS * Refills: 0 Active Nystatin 517962 UNIT/GM External Cream APPLY A THIN LAYER [...] DT on: 23-Sep-2010 Fluzone INJ Lot #: [id number] on: 25-Apr-2013 Influenza on: Mar-2014 Zoster (Zostavax) on: 08-Mar-2014 Prevnar 13 Intramuscular Suspension Lot #: [id number] on: 21-Sep-2014 Fluzone INJ Lot #: [id number] on: 09-Feb-2015 Fluzone Quadrivalent 0.5 ML Intramuscular Suspension Prefilled Syringe Lot #: [id number] on: 20-Mar-2016 Fluzone High-Dose 0.5 ML Intramuscular Suspension Prefilled Syringe Lot #: [id number] on: 23-Apr-2017 Fluzone Quadrivalent 0.5 ML Intramuscular Suspension Lot #: [id number] on: 09-Mar-2018 Flucelvax Quadrivalent Intramuscular Suspension Lot #: [id number] on: 30-Mar-2019 Family History Name Dates Details [...] (finding) Vital Signs Date Test Result Details 29-Crn-971005:36 Systolic blood pressure 113 mm[Hg] Status: Comments: Location: LUE; Position: Sitting Diastolic blood pressure 65 mm[Hg] Status: Comments: Location: LUE; Position: Sitting Body height 60 in Status: Weight 145.5 lb Status: Body mass index (BMI) [Ratio] 28.42 kg/m2 Status: Body surface area Derived from formula 1.63 m2 Status: Heart Rate 77 /min Status: Respiratory rate 16 /min Status: 54-Rwu-340393:39 Systolic blood pressure 96 mm[Hg] Status: Comments: [...]
--- OUTSIDE RECORDS SUMMARY | 2019-09-10 11:21 | XMS REPORT | Summary of Care ---
Author Author [facility] Address [address] [place] [address] Phone Unavailable Care Team Providers Care Range Mechanic Name Role Phone YALA STEEL APRN Unavailable Unavailable ROGELIO KAM [place], ISREAL Melton Unavailable Unavailable RYANNE CORREA, PRADEEP Villegas Unavailable Unavailable SHANTELLE DIANA, JOEL Unavailable Unavailable Aspen KAM, Chetan Unavailable Unavailable CHRISTOFER Farmer, VANI Unavailable Unavailable CHRISTOFER KAM [place], VANI CORBETT Unavailable Unavailable ROGELIO Farmer, ISREAL [...] Asymptomatic microscopic hematuria (599.72, R31.21) Status: Active Shortness of breath (786.05, R06.02) [...] Status: Active Tachycardia (785.0, R00.0) Status: Active Shakiness (781.0, R25.1) Status: Active Fatigue (780.79, R53.83) Status: Active New onset of headaches (784.0, R51) Status: Active Medications Name Dates Details Atorvastatin [...] Probiotic CAPS * Refills: 0 Active Nystatin 500633 UNIT/GM External Cream APPLY A THIN LAYER [...] Details [N] Holter Monitor-24 hr. Date: 02-Aug-2019 [QLH] TSH, 3RD GENERATION W/REFLEX TO FT4 Date: 11-Aug-2019 [QLH] URINALYSIS, COMPLETE W/REFLEX TO CULTURE Date: 11-Aug-2019 [QLH] CBC (INCLUDES DIFF/PLT) Date: 11-Aug-2019 [QLH] CMP W/EGFR Date: 11-Aug-2019 [QLH] VITAMIN B12 Date: 11-Aug-2019 [QLH] CULTURE, URINE, ROUTINE Date: 11-Aug-2019 CT Brain wo contrast 11181 Date: 11-Aug-2019 History of Hysterectomy Completed History of Bladder Surgery Completed History of Gallbladder surgery Completed History of Hysterectomy total Completed History of CABG Completed Immunization Name Dates Details Tdap (Adacel) on: Jun-2002 Pneumo on: Jun-2009 DT on: 23-Sep-2010 Fluzone INJ Lot #: [id number] on: 25-Apr-2013 Influenza on: Mar-2014 Zoster (Zostavax) on: 08-Mar-2014 Prevnar 13 Intramuscular Suspension Lot #: [id number] on: 21-Sep-2014 Fluzone INJ Lot #: [id number] on: 09-Feb-2015 Fluzone Quadrivalent 0.5 ML Intramuscular Suspension Prefilled Syringe Lot #: [id number] on: 20-Mar-2016 Fluzone High-Dose 0.5 ML Intramuscular Suspension Prefilled Syringe Lot #: [id number] on: 23-Apr-2017 Fluzone Quadrivalent 0.5 ML Intramuscular Suspension Lot #: [id number] on: 09-Mar-2018 Flucelvax Quadrivalent Intramuscular Suspension Lot #: [id number] on: 30-Mar-2019 Family History Name Dates Details [...] Vital Signs Date Test Result Details :29 Physical Findings 8 Status: Comments: PHQ-9 Adult Depression Screening :15 Systolic blood pressure 125 mm[Hg] Status: Comments: Location: E; Position: Sitting Diastolic blood pressure 80 mm[Hg] Status: Comments: Location: E; Position: Sitting Heart Rate 77 /min Status: Comments: Location: L Brachial Artery; :14 Systolic blood pressure 129 mm[Hg] Status: Comments: Location: LUE; Position: Supine Diastolic blood pressure 75 mm[Hg] Status: Comments: Location: LUE; Position: Supine Heart Rate 65 /min Status: Comments: Location: L Brachial Artery; :29 Systolic blood pressure 107 mm[Hg] Status: Comments: Location: LUE; Position: Sitting Diastolic blood pressure 67 mm[Hg] Status: Comments: Location: LUE; Position: Sitting Heart Rate 85 /min Status: Comments: Location: L Brachial Artery; Body height 60 in Status: Weight 145 lb Status: Body mass index (BMI) [Ratio] 28.32 kg/m2 Status: Body surface area Derived from formula 1.63 m2 Status: Body temperature 97.5 f Status: Comments: Method: Temporal Respiratory rate 16 /min Status: Physical Findings 0 Status: Comments: Alcohol Screen - How many times in the past yr have you had 5 (for M) or 4 (for F) or 4 (for all > 65yrs) or more drinks in a day? 35-Yhd-[id number]:36 Systolic blood pressure 113 mm[Hg] Status: Comments: Location: LUE; Position: Sitting Diastolic blood pressure 65 mm[Hg] Status: Comments: Location: LUE; Position: Sitting Heart Rate 77 /min Status: Body height 60 in Status: Weight 145.5 lb Status: Body mass index (BMI) [Ratio] 28.42 kg/m2 Status: Body surface area Derived from formula 1.63 m2 Status: Respiratory rate 16 /min Status: 65-Phs-313113:39 Systolic blood pressure 96 mm[Hg] Status: Comments: Location: LUE; Position: Sitting Diastolic blood pressure 59 mm[Hg] Status: Comments: Location: LUE; Position: Sitting Heart Rate 91 /min Status: Comments: Location: L Radial; Body height 60 in Status: Weight 145 lb Status: Body mass index (BMI) [Ratio] 28.32 kg/m2 Status: Body surface area Derived from formula 1.63 m2 Status: Results Date Description Value Details 2-[id number] [O] Urine Dipstick (In Office) Glucose normal (Normal) LEUKOCYTES neg (Normal) NITRITE neg (Normal) UROBILINOGEN normal (Normal) PROTEIN trace pH 5 URINE BLOOD trace SPECIFIC GRAVITY 1.020 KETONES neg (Normal) BILIRUBIN normal (Normal) COLOR URINE yellow APPEARANCE clear 5-Yoq-965059:45 Glucose (Point of Care In Office) Glucose POC Lifescan 102 Plan of Care Name Dates Details Planned Observations Planned Goals not documented Planned Encounters Appointment; CHETAN TAPIA M.D. On: 06-Sep-2019 14:40 Appointment; DAE SARAH M.D. On: 20-Jan-2020 13:45 Appointment; PRADEEP PEARL D.O. On: 14-May-2020 14:10 Instructions Name Dates Details Instructions not documented Encounters Appointment; JOSE CARMONA P.ABlanco Encounter Diagnosis: Problem not documented On: 17-Aug-2017 [...] documented On: 18-Mar-2018 11:00 Appointment; JOSE CARMONA PBlancoABlanco Encounter Diagnosis: Problem not documented On: 17-Jun-2018 [...] Diagnosis: Problem not documented On: 11-Aug-2019 13:30 Appointment; [facility] Encounter Diagnosis: Problem not documented On: 11-Aug-2019 14:00
--- OUTSIDE RECORDS SUMMARY | 2019-09-10 11:21 | XMS REPORT | Summary of Care ---
Author Author Dacia Alonzo M.A. Unknown Address Unknown Phone Unavailable Care Team Providers Care Jewelry Sales Coordinator Name Role Phone MILVIA IBRAHIM, AYLA Unavailable Unavailable ROGELIO KAM [place], ISREAL [...] Probiotic CAPS * Refills: 0 Active Nystatin 189872 UNIT/GM External Cream APPLY A THIN LAYER [...] ROUTINE Date: 11-Aug-2019 CT Brain wo contrast 30450 Date: 11-Aug-2019 History of Hysterectomy Completed History of Bladder Surgery Completed History of Gallbladder surgery Completed History of Hysterectomy total Completed History of CABG Completed Immunization Name Dates Details Tdap (Adacel) on: Jun-2002 Pneumo on: Jun-2009 DT on: 23-Sep-2010 Fluzone INJ Lot #: [id number] on: 25-Apr-2013 Influenza on: Mar-2014 Zoster (Zostavax) on: 08-Mar-2014 Prevnar 13 Intramuscular Suspension Lot #: [id number] on: 21-Sep-2014 Fluzone INJ Lot #: [id number] on: 09-Feb-2015 Fluzone Quadrivalent 0.5 ML Intramuscular Suspension Prefilled Syringe Lot #: [id number] on: 20-Mar-2016 Fluzone High-Dose 0.5 ML Intramuscular Suspension Prefilled Syringe Lot #: [id number] on: 23-Apr-2017 Fluzone Quadrivalent 0.5 ML Intramuscular Suspension Lot #: [id number] on: 09-Mar-2018 Flucelvax Quadrivalent Intramuscular Suspension Lot #: [id number] on: 30-Mar-2019 Family History Name Dates Details [...] blood pressure 125 mm[Hg] [place]: [place] [facility] [place] Diastolic blood pressure 80 mm[Hg] Status: Comments: [place] [facility] [place]: [place] Heart Rate 77 /min Status: Comments: Location: Brachial Artery; :14 Systolic blood pressure 129 mm[Hg] Status: Comments: [place] [facility] [place] Position: Supine Diastolic blood pressure 75 mm[Hg] Status: Comments: Location: E; Position: Supine Heart Rate 65 /min Status: Comments: Location: Brachial Artery; :29 Systolic blood pressure 107 mm[Hg] Status: Comments: Location: LUE; Position: Sitting Diastolic blood pressure 67 mm[Hg] Status: Comments: Location: E; Position: Sitting Heart Rate 85 /min Status: [...] 65yrs) or more drinks in a day? [id number]-Spz-[id number]:36 Systolic blood pressure 113 mm[Hg] Status: Comments: Location: LUE; Position: Sitting Diastolic blood pressure 65 mm[Hg] Status: Comments: Location: LUE; Position: Sitting Heart Rate 77 /min Status: Body height 60 in Status: Weight 145.5 lb Status: Body mass index (BMI) [Ratio] 28.42 kg/m2 Status: Body surface area Derived from formula 1.63 m2 Status: Respiratory rate 16 /min Status: 34-[id number]-[id number]:39 Systolic blood pressure 96 mm[Hg] Status: Comments: Location: LUE; Position: Sitting Diastolic blood pressure 59 mm[Hg] Status: Comments: Location: LUE; Position: Sitting Heart Rate 91 /min Status: Comments: Location: L Radial; Body height 60 in Status: Weight 145 lb Status: Body mass index (BMI) [Ratio] 28.32 kg/m2 Status: Body surface area Derived from formula 1.63 m2 Status: Results Date Description Value Details [id number] [O] Urine Dipstick (In Office) Glucose normal (Normal) LEUKOCYTES neg (Normal) NITRITE neg (Normal) UROBILINOGEN normal (Normal) PROTEIN trace pH 5 URINE BLOOD trace SPECIFIC GRAVITY 1.020 KETONES neg (Normal) BILIRUBIN normal (Normal) COLOR URINE yellow APPEARANCE clear 1-Nkf-500959:45 Glucose (Point of Care In Office) Glucose POC Lifescan 102 Plan of Care Name Dates Details Planned Observations Planned Goals not documented Planned Encounters Appointment; JOANNA OJEDA On: 11-Aug-2019 14:00 Appointment; CHETAN TAPIA M.D. On: 06-Sep-2019 14:40 Appointment; DAE SARAH M.D. On: 20-Jan-2020 13:45 Appointment; PRADEEP PEARL D.O. On: 14-May-2020 14:10 Interventions Provided Labs/Procedures/Imaging* [QLH] CBC (INCLUDES DIFF/PLT); To Be Done: 11 Aug 2019 * [QLH] CMP W/EGFR; To Be Done: 11 Aug 2019 * [QLH] CULTURE, URINE, ROUTINE; To Be Done: 11 Aug 2019 * [QLH] TSH, 3RD GENERATION W/REFLEX TO FT4; To Be Done: 11 Aug 2019 * [QLH] URINALYSIS, COMPLETE W/REFLEX TO CULTURE; To Be Done: 11 Aug 2019 * [QLH] VITAMIN B12; To Be Done: 11 Aug 2019 * CT Brain wo contrast 98253; To Be Done: 11 Aug 2019 * [O] Urine Dipstick (In Office); Done: 11 Aug 2019 * EKG (In Office); Done: 11 Aug 2019 * Glucose (Point of Care In Office); Done: 11 Aug 2019 Instructions* Seek Immediate Medical Attention if: The symptoms seem worse.; Done: 11 Aug 2019 Plan* CT of brain * check labs * f/u based on findings * er precautions Instructions Name Dates Details Instructions not documented [...] Problem not documented On: 16-Mar-2018 11:00 Appointment; [facility], [facility] Encounter Diagnosis: Problem not documented On: [...]
--- OUTSIDE RECORDS SUMMARY | 2019-09-10 11:21 | XMS REPORT | Summary of Care ---
Author Mile Smith Unknown Address Unknown Phone Unavailable Care Team Providers Care Aircraft Launch And Recovery Technician Name Role Phone MILVIA IBRAHIM, AYLA Unavailable Unavailable LYNETTE, JOANNA Unavailable Unavailable ROGELIO KAM [place], ISREAL Melton Unavailable Unavailable RYANNE CORREA, PRADEEP Villegas Unavailable Unavailable SHANTELLE DISTRIBUTION SPEC, JOEL Unavailable Unavailable Aspen KAM, Chetan Unavailable Unavailable CHRISTOFER Farmer, VANI Unavailable Unavailable CHRISTOFER KAM [place], VANI COBRETT Unavailable Unavailable ROGELIO Farmer, ISREAL Unavailable Unavailable [...] Probiotic CAPS * Refills: 0 Active Nystatin 621990 UNIT/GM External Cream APPLY A THIN LAYER [...] Z87.09) Status: Resolved Procedures Procedure Dates Details [QLH] TSH, 3RD GENERATION W/REFLEX TO FT4 Date: 11-Aug-2019 [QLH] URINALYSIS, COMPLETE W/REFLEX TO CULTURE Date: 11-Aug-2019 [QLH] CBC (INCLUDES DIFF/PLT) Date: 11-Aug-2019 [QLH] CMP W/EGFR Date: 11-Aug-2019 [QLH] VITAMIN B12 Date: 11-Aug-2019 [QLH] CULTURE, URINE, ROUTINE Date: 11-Aug-2019 CT Brain wo contrast 48237 Date: 11-Aug-2019 History of Hysterectomy Completed History of Bladder Surgery Completed History of Gallbladder surgery Completed History of Hysterectomy total Completed History of CABG Completed Immunization Name Dates Details Tdap (Adacel) on: Jun-2002 Pneumo on: Jun-2009 DT on: 23-Sep-2010 Fluzone INJ Lot #: [id number] on: 25-Apr-2013 Influenza on: Mar-2014 Zoster (Zostavax) on: 08-Mar-2014 Prevnar 13 Intramuscular Suspension Lot #: [id number] on: 21-Sep-2014 Fluzone INJ Lot #: [id number] on: 09-Feb-2015 Fluzone Quadrivalent 0.5 ML Intramuscular Suspension Prefilled Syringe Lot #: [id number] on: 20-Mar-2016 Fluzone High-Dose 0.5 ML Intramuscular Suspension Prefilled Syringe Lot #: [id number] on: 23-Apr-2017 Fluzone Quadrivalent 0.5 ML Intramuscular Suspension Lot #: [id number] on: 09-Mar-2018 Flucelvax Quadrivalent Intramuscular Suspension Lot #: [id number] on: 30-Mar-2019 Family History Name Dates Details [...] blood pressure 125 mm[Hg] Status: Comments: Location: LUE; Position: Sitting Diastolic blood pressure 80 mm[Hg] Status: Comments: Location: LUE; Position: Sitting [...] m2 Status: Respiratory rate 16 /min Status: :39 [...] m2 Status: Results Date Description Value Details 7-[id number]:35 [O] Urine Dipstick (In Office) Glucose normal (Normal) LEUKOCYTES neg (Normal) NITRITE neg (Normal) UROBILINOGEN normal (Normal) PROTEIN trace pH 5 URINE BLOOD trace SPECIFIC GRAVITY 1.020 KETONES neg (Normal) BILIRUBIN normal (Normal) COLOR URINE yellow APPEARANCE clear 5-Gag-940551:45 Glucose (Point of Care In Office) Glucose [...] Problem not documented On: 16-Mar-2018 11:00 Appointment; [facility], [facility] Encounter Diagnosis: Problem not documented On: 18-Mar-2018 10:00 Appointment; [facility] Encounter Diagnosis: Problem not documented On: [...] Problem not documented On: 11-Aug-2019 13:30 Appointment; [facility], [place] Encounter Diagnosis: Problem not documented On: 11-Aug-2019 14:00
--- OUTSIDE RECORDS SUMMARY | 2019-09-10 11:22 | XMS REPORT | Summary of Care ---
Author Author [facility] Address [address] [place] [address] Phone Unavailable Care Team Providers Care Home Lighting Adviser Name Role Phone AYLA STEEL APRN Unavailable Unavailable ROGELIO KAM [place], ISREAL Melton Unavailable Unavailable RYANNE CORREA, PRADEEP Villegas Unavailable Unavailable SHANTELLE DIANA, JOEL Unavailable Unavailable Aspen KAM, Chetan Unavailable Unavailable CHRISTOFER Farmer, VANI Unavailable Unavailable CHRISTOFER KAM [place], VANI CORBETT Unavailable Unavailable ROGELIO Farmer, ISREAL [...] Probiotic CAPS * Refills: 0 Active Nystatin 409724 UNIT/GM External Cream APPLY A THIN LAYER [...] Z87.09) Status: Resolved Procedures Procedure Dates Details CT Brain wo contrast 29565 Date: 11-Aug-2019 History of Hysterectomy Completed History of Bladder Surgery Completed History of Gallbladder surgery Completed History of Hysterectomy total Completed History of CABG Completed Immunization Name Dates Details Tdap (Adacel) on: Jun-2002 Pneumo on: Jun-2009 DT on: 23-Sep-2010 Fluzone INJ Lot #: [id number] on: 25-Apr-2013 Influenza on: Mar-2014 Zoster (Zostavax) on: 08-Mar-2014 Prevnar 13 Intramuscular Suspension Lot #: [id number] on: 21-Sep-2014 Fluzone INJ Lot #: [id number] on: 09-Feb-2015 Fluzone Quadrivalent 0.5 ML Intramuscular Suspension Prefilled Syringe Lot #: [id number] on: 20-Mar-2016 Fluzone High-Dose 0.5 ML Intramuscular Suspension Prefilled Syringe Lot #: [id number] on: 23-Apr-2017 Fluzone Quadrivalent 0.5 ML Intramuscular Suspension Lot #: [id number] on: 09-Mar-2018 Flucelvax Quadrivalent Intramuscular Suspension Lot #: [id number] on: 30-Mar-2019 Family History Name Dates Details [...] m2 Status: Results Date Description Value Details :35 [O] Urine Dipstick (In Office) Glucose normal (Normal) LEUKOCYTES neg (Normal) NITRITE neg (Normal) UROBILINOGEN normal (Normal) PROTEIN trace pH 5 URINE BLOOD trace SPECIFIC GRAVITY 1.020 KETONES neg (Normal) BILIRUBIN normal (Normal) COLOR URINE yellow APPEARANCE clear :45 Glucose (Point of Care In Office) Glucose POC Lifescan 102 :30 [QLH] CMP W/EGFR GLUCOSE 87 mg/dl (Normal) Range: 65-139 Comments: Non-fasting reference interval UREA NITROGEN (BUN) 14 mg/dl (Normal) Range: 7-25 CREATININE 0.66 mg/dl (Normal) Range: 0.60-0.93 Comments: For patients >49 years of age, the reference limitfor Creatinine is approximately 13% higher for peopleidentified as -[place]. eGFR NON- 86 {ML/MIN/1.7} (Normal) Range: > OR=60 eGFR 99 {ML/MIN/1.7} (Normal) Range: > OR=60 BUN/CREATININE RATIO NOT APPLICABLE {CALC} Range: 6-22 SODIUM 140 mmol/L (Normal) Range: 135-146 POTASSIUM 4.2 mmol/L (Normal) Range: 3.5-5.3 CHLORIDE 102 mmol/L (Normal) Range: 98-110 CARBON DIOXIDE 28 mmol/L (Normal) Range: 20-32 CALCIUM 9.8 mg/dl (Normal) Range: 8.6-10.4 PROTEIN, TOTAL 7.6 g/dl (Normal) Range: 6.1-8.1 ALBUMIN 4.6 g/dl (Normal) Range: 3.6-5.1 GLOBULIN 3.0 {G/DL__CALC} (Normal) Range: 1.9-3.7 ALBUMIN/GLOBULIN RATIO 1.5 {CALC} (Normal) Range: 1.0-2.5 BILIRUBIN, TOTAL 0.4 mg/dl (Normal) Range: 0.2-1.2 ALKALINE PHSPHATASE 88 u/l (Normal) Range: 37-153 AST 15 u/l (Normal) Range: 10-35 ALT 13 u/l (Normal) Range: 6-29 :30 [QL] URINALYSIS, COMPLETE W/REFLEX TO CULTURE COLOR YELLOW (Normal) Range: YELLOW APPEARANCE CLEAR (Normal) Range: CLEAR SPECIFIC GRAVITY 1.005 (Normal) Range: 1.001-1.035 PH 6.5 (Normal) Range: 5.0-8.0 GLUCOSE NEGATIVE (Normal) Range: NEGATIVE BILIRUBIN NEGATIVE (Normal) Range: NEGATIVE KETONES NEGATIVE (Normal) Range: NEGATIVE OCCULT BLOOD TRACE (Abnormal) Range: NEGATIVE PROTEIN NEGATIVE (Normal) Range: NEGATIVE NITRITE NEGATIVE (Normal) Range: NEGATIVE LEUKOCYTE ESTERASE NEGATIVE (Normal) Range: NEGATIVE WBC NONE SEEN {/HPF} (Normal) Range: < OR=5 RBC NONE SEEN {/HPF} (Normal) Range: < OR=2 SQUAMOUS EPITHELIAL CELLS NONE SEEN {/HPF} (Normal) Range: < OR=5 BACTERIA NONE SEEN {/HPF} (Normal) Range: NONE SEEN HYALINE CAST NONE SEEN {/LPF} (Normal) Range: NONE SEEN :30 [Q] REFLEXIVE URINE CULTURE REFLEXIVE URINE CULTURE NO CULTURE INDICATED :30 [QLH] CBC (INCLUDES DIFF/PLT) WHITE BLOOD CELL COUNT 7.5 {Thousand/u} (Normal) Range: 3.8-10.8 RED BLOOD CELL COUNT 4.13 {Million/uL} (Normal) Range: 3.80-5.10 HEMAGLOBIN 12.3 g/dl (Normal) Range: 11.7-15.5 HEMATOCRIT 36.9 % (Normal) Range: 35.0-45.0 MCV 89.3 fL (Normal) Range: 80.0-100.0 MCH 29.8 pg (Normal) Range: 27.0-33.0 MCHC 33.3 g/dl (Normal) Range: 32.0-36.0 RDW 13.1 % (Normal) Range: 11.0-15.0 PLATELET COUNT 337 {Thousand/u} (Normal) Range: 140-400 MPV 10.2 fL (Normal) Range: 7.5-12.5 ABSOLUTE NEUTROPHILS 4320 {cells/uL} (Normal) Range: 8944-4624 ABSOLUTE LYMPHOCYTES 2280 {cells/uL} (Normal) Range: 850-3900 ABSOLUTE MONOCYTES 630 {cells/uL} (Normal) Range: 200-950 ABSOLUTE EOSINOPHILS 210 {cells/uL} (Normal) Range: 15-500 ABSOLUTE BASOPHILS 60 {cells/uL} (Normal) Range: 0-200 NEUTROPHILS 57.6 % (Normal) LYMPHOCYTES 30.4 % (Normal) MONOCYTES 8.4 % (Normal) EOSINOPHILS 2.8 % (Normal) BASOPHILS 0.8 % (Normal) 5-Xhg-123025:30 [[facility]] VITAMIN B12 VITAMIN B12 682 pg/ml (Normal) Range: 200-1100 9-Mlo-792148:30 [[facility]] TSH, 3RD GENERATION W/REFLEX TO FT4 Comments: REPORT COMMENT:FASTING:NO TSH, 3RD GENERATION W/REFLEX TO FT4 1.58 {MIU/L} (Normal) Range: 0.40-4.50 11-Aug-20190:00 [[facility]] CULTURE, URINE, ROUTINE CULTURE Comments: CULTURE, URINE, ROUTINE Micro Number: [id number] Test Status: Final Specimen Source: URINE Specimen Quality: Adequate Result: No Growth Plan of Care Name Dates Details Planned [...] Problem not documented On: 16-Mar-2018 11:00 Appointment; [facility], [facility] Encounter Diagnosis: Problem not documented On: 18-Mar-2018 10:00 Appointment; [facility], [facility] Encounter Diagnosis: Problem not [...] Problem not documented On: 11-Aug-2019 13:30 Appointment; [facility], [place] Encounter Diagnosis: Problem not documented On: 11-Aug-2019 14:00
--- OUTSIDE RECORDS SUMMARY | 2019-09-10 11:22 | XMS REPORT | Summary of Care ---
Author Author [facility] Address [address] [place] [address] Phone Unavailable Care Team Providers Care Water Pump Assembler Name Role Phone AYLA STEEL APRN Unavailable Unavailable ROGELIO KAM [place], ISREAL Melton Unavailable Unavailable RYANNE CORREA, PRADEEP Villegas Unavailable Unavailable SHANTELLE DIANA, JOEL Unavailable Unavailable Aspen KAM, Chetan Unavailable Unavailable CHRISTOFER Farmer, VANI Unavailable Unavailable CHRISTOFER KAM [place], VANI CORBETT Unavailable Unavailable ROGELIO Farmer, ISREAL [...] Active Eczema intertrigo (695.89, L30.4) Status: Active Dysphagia (787.20, R13.10) Status: Active Screen for colon cancer (V76.51, Z12.11) Status: Active Sore throat (462, J02.9) Status: Active Productive cough (786.2, R05) Status: Active Normal blood pressure Status: Active Chronic cough (786.2, R05) Status: Active Need for pneumococcal vaccination (V03.82, Z23) Status: Active Iron deficiency (280.9, E61.1) Status: Active Hypertrophy of nasal turbinates (478.0, J34.3) Status: Active Obesity (BMI 30.0-34.9) (278.00, E66.9) Status: Active Encounter for mini-mental status examination Status: Active Need for hepatitis C screening test (V73.89, Z11.59) Status: Active Sinusitis (473.9, J32.9) Status: Active Acute non-recurrent maxillary sinusitis (461.0, J01.00) Status: Active Acute pain of right knee (719.46, M25.561) Status: Active Acute bronchitis (466.0, J20.9) Status: Active Knee pain, bilateral (719.46, M25.561) Status: Active Nevus, non-neoplastic (448.1, I78.1) Status: Active GERD (gastroesophageal reflux disease) (530.81, K21.9) Status: Active History of colon polyps (V12.72, Z86.010) Status: Active Ear pain (388.70, H92.09) Status: Active 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, R31.1) Status: Active Allergic rhinitis due to pollen (477.0, J30.1) Status: Active Gastric reflux syndrome (530.81, K21.9) Status: Active Allergic rhinitis (477.9, J30.9) Status: Active Acute frontal sinusitis (461.1, J01.10) Status: Active Depressive disorder (311, F32.9) Status: Active Knee pain, left (719.46, M25.562) Status: Active Dizziness (780.4, R42) Status: Active Abscess of leg (682.6, L02.419) Status: Active Cat bite (879.8, W55.01XA) Status: Active Urinary symptom or sign (788.99, R39.9) Status: Active Hematuria (599.70, R31.9) Status: Active Asymptomatic microscopic hematuria (599.72, R31.21) Status: Active Shortness of breath (786.05, R06.02) Status: Active Acute bronchitis due to infection (466.0, J20.8) Status: Active Asthma (493.90, J45.909) Status: Active Encounter for screening mammogram for malignant neoplasm of breast (V76.12, Z12.31) Status: Active Estrogen deficiency (256.39, E28.39) Status: Active Candidiasis of breast (112.89, B37.89) Status: Active UTI (urinary tract infection) (599.0, N39.0) Status: Active H. pylori infection (041.86, A04.8) Status: Active Encounter to discuss test results (V65.49, Z71.2) Status: Active Screening for thyroid disorder (V77.0, Z13.29) Status: Active Hematuria, microscopic (599.72, R31.29) Status: Active Vaginal atrophy (627.3, N95.2) Status: Active Bunion, left (727.1, M21.612) Status: Active Dry cough (786.2, R05) Status: [...] onset of headaches (784.0, R51) Status: Active Diffuse abdominal pain (789.00, R10.84) Status: Active Flu vaccine need (V04.81, Z23) Status: Active Dysfunction of left eustachian tube (381.81, H69.82) Status: Active Insomnia (780.52, G47.00) Status: Active Hyperlipidemia (272.4, E78.5) Status: Active Dry eyes, bilateral (375.15, H04.123) Status: Active Acquired hammer toe of left foot (735.4, M20.42) Status: Active Abnormal urine finding (791.9, R82.90) Status: Active 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, M35.9) Status: Active Abdominal pain, RUQ (789.01, R10.11) Status: Active 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, F34.1) Status: Active Other fatigue (780.79, R53.83) Status: Active Seasonal allergic rhinitis (477.9, J30.2) Status: Active Anxiety (300.00, F41.9) Status: Active Bilateral leg cramps (729.82, R25.2) Status: Active Acute pain in left eye (379.91, H57.12) Status: Active Osteopenia (733.90, M85.80) Status: Active Visit for screening mammogram (V76.12, Z12.31) Status: Active Other insomnia (780.52, G47.09) Status: Active Acute upper respiratory infection (465.9, J06.9) Status: Active Acute sinus infection (461.9, J01.90) Status: Active Xeroderma (757.39, Q80.9) Status: Active History of dry mouth (V12.79, Z87.19) Status: Active 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, 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 Depression screening (V79.0, Z13.31) Status: Active At low risk for fall (V49.89, Z91.81) Status: Active Acute vaginitis (616.10, N76.0) Status: Active Arthralgia of multiple sites (719.49, M25.50) Status: Active Advance directive discussed with patient (V65.49, Z71.89) Status: Active Postmenopausal hormone replacement therapy (V07.4, Z79.890) Status: Active 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, F34.1) Status: Active Limb pain (729.5, M79.609) Status: Active Upper respiratory infection (465.9, J06.9) Status: Active Renal cyst, left (753.10, N28.1) Status: Active Pain in both feet (729.5, M79.671) Status: Active Influenza vaccine needed (V04.81, Z23) Status: Active Abdominal pain, LLQ (left lower quadrant) (789.04, R10.32) Status: Active Urinary tract infection (599.0, N39.0) Status: Active Dysuria (788.1, R30.0) Status: Active Nasal polyp (471.9, J33.9) Status: Active GERD (gastroesophageal reflux disease) (530.81, K21.9) Status: Active Elevated WBCs (288.60, D72.829) Status: Active Decreased vision of left eye (369.8, H54.62) Status: Active Medications Name Dates Details Atorvastatin [...] Probiotic CAPS * Refills: 0 Active Nystatin 226969 UNIT/GM External Cream APPLY A THIN LAYER [...] ROUTINE Date: 11-Aug-2019 CT Brain wo contrast 87603 Date: 11-Aug-2019 History of Hysterectomy Completed History of Bladder Surgery Completed History of Gallbladder surgery Completed History of Hysterectomy total Completed History of CABG Completed Immunization Name Dates Details Tdap (Adacel) on: Jun-2002 Pneumo on: Jun-2009 DT on: 23-Sep-2010 Fluzone INJ Lot #: [id number] on: 25-Apr-2013 Influenza on: Mar-2014 Zoster (Zostavax) on: 08-Mar-2014 Prevnar 13 Intramuscular Suspension Lot #: [id number] on: 21-Sep-2014 Fluzone INJ Lot #: [id number] on: 09-Feb-2015 Fluzone Quadrivalent 0.5 ML Intramuscular Suspension Prefilled Syringe Lot #: [id number] on: 20-Mar-2016 Fluzone High-Dose 0.5 ML Intramuscular Suspension Prefilled Syringe Lot #: [id number] on: 23-Apr-2017 Fluzone Quadrivalent 0.5 ML Intramuscular Suspension Lot #: [id number] on: 09-Mar-2018 Flucelvax Quadrivalent Intramuscular Suspension Lot #: [id number] on: 30-Mar-2019 Family History Name Dates Details [...] m2 Status: Results Date Description Value Details 2-Xnk-817303:35 [O] Urine Dipstick (In Office) Glucose normal (Normal) LEUKOCYTES neg (Normal) NITRITE neg (Normal) UROBILINOGEN normal (Normal) PROTEIN trace pH 5 URINE BLOOD trace SPECIFIC GRAVITY 1.020 KETONES neg (Normal) BILIRUBIN normal (Normal) COLOR URINE yellow APPEARANCE clear 4-Cad-976133:45 Glucose (Point of Care In Office) Glucose [...] Problem not documented On: 18-Mar-2018 10:00 Appointment; [facility] Encounter Diagnosis: Problem not documented [...] Problem not documented On: 11-Aug-2019 13:30 Appointment; [facility] [place] Encounter Diagnosis: Problem not documented On: 11-Aug-2019 14:00
--- OUTSIDE RECORDS SUMMARY | 2019-09-10 11:22 | XMS REPORT | Summary of Care ---
Author Author [facility] Address [address] [place] [address] Phone Unavailable Care Team Providers Care Vocal Music Teacher Name Role Phone AYLA STEEL APRN Unavailable Unavailable ROGELIO KAM [place], ISREAL Melton Unavailable Unavailable RYANNE CORREA, PRADEEP Villegas Unavailable Unavailable SHANTELLE DIANA, JOEL Unavailable Unavailable Aspen KAM, Chetan Unavailable Unavailable CHRISTOFER Farmer, VANI Unavailable Unavailable CHRISTOFER KAM [place], VANI CORBETT Unavailable Unavailable ROGELIO Farmer, ISREAL [...] Probiotic CAPS * Refills: 0 Active Nystatin 689441 UNIT/GM External Cream APPLY A THIN LAYER [...] Procedure Dates Details CT Brain wo contrast 61887 Date: 11-Aug-2019 History of Hysterectomy Completed History of Bladder Surgery Completed History of Gallbladder surgery Completed History of Hysterectomy total Completed History of CABG Completed Immunization Name Dates Details Tdap (Adacel) on: Jun-2002 Pneumo on: Jun-2009 DT on: 23-Sep-2010 Fluzone INJ Lot #: [id number] on: 25-Apr-2013 Influenza on: Mar-2014 Zoster (Zostavax) on: 08-Mar-2014 Prevnar 13 Intramuscular Suspension Lot #: [id number] on: 21-Sep-2014 Fluzone INJ Lot #: [id number] on: 09-Feb-2015 Fluzone Quadrivalent 0.5 ML Intramuscular Suspension Prefilled Syringe Lot #: [id number] on: 20-Mar-2016 Fluzone High-Dose 0.5 ML Intramuscular Suspension Prefilled Syringe Lot #: [id number] on: 23-Apr-2017 Fluzone Quadrivalent 0.5 ML Intramuscular Suspension Lot #: [id number] on: 09-Mar-2018 Flucelvax Quadrivalent Intramuscular Suspension Lot #: [id number] on: 30-Mar-2019 Family History Name Dates Details [...] is approximately 13% higher for peopleidentified as -Thai. eGFR NON- 86 {ML/MIN/1.7} (Normal) Range: > [...] 7.5-12.5 ABSOLUTE NEUTROPHILS 4320 {cells/uL} (Normal) Range: 7336-0735 ABSOLUTE LYMPHOCYTES 2280 {cells/uL} (Normal) Range: 850-3900 ABSOLUTE MONOCYTES 630 {cells/uL} (Normal) Range: 200-950 ABSOLUTE EOSINOPHILS 210 {cells/uL} (Normal) Range: 15-500 ABSOLUTE BASOPHILS 60 {cells/uL} (Normal) Range: 0-200 NEUTROPHILS 57.6 % (Normal) LYMPHOCYTES 30.4 % (Normal) MONOCYTES 8.4 % (Normal) EOSINOPHILS 2.8 % (Normal) BASOPHILS 0.8 % (Normal) 1-Ivy-776420:30 [[facility]] VITAMIN B12 VITAMIN B12 682 pg/ml (Normal) Range: 200-1100 6-Qcf-221847:30 [[facility]] TSH, 3RD GENERATION W/REFLEX TO FT4 Comments: REPORT COMMENT:FASTING:NO TSH, 3RD GENERATION W/REFLEX TO FT4 1.58 {MIU/L} (Normal) Range: 0.40-4.50 11-Aug-20190:00 [[facility]] CULTURE, URINE, ROUTINE CULTURE Comments: CULTURE, URINE, ROUTINE Micro Number: [id number] Test Status: Final Specimen Source: URINE Specimen [...] not documented On: 16-Mar-2018 11:00 Appointment; [facility], [facility] Encounter Diagnosis: Problem not documented On: 18-Mar-2018 10:00 Appointment; [facility] Encounter Diagnosis: Problem not documented On: [...] Problem not documented On: 11-Aug-2019 13:30 Appointment; [facility], [place] Encounter Diagnosis: Problem not documented On: 11-Aug-2019 14:00
--- OUTSIDE RECORDS SUMMARY | 2019-09-10 11:22 | XMS REPORT | Summary of Care ---
Author Author JOEL PEPPER APRN Organization Unknown Address Unknown Phone Unavailable Care Team Providers Care Headlight Adjuster Name Role Phone AYLA STEEL APRN Unavailable Unavailable ROGELIO KAM [place], ISREAL Melton Unavailable Unavailable RYANNE CORREA, PRADEEP Villegas Unavailable Unavailable SHANTELLE DIANA, JOEL Unavailable Unavailable Aspen KAM, Chetan Unavailable Unavailable CHRISTOFER Farmer, VANI Unavailable Unavailable CHRISTOFER KAM [place], VANI CORBETT Unavailable Unavailable ROGELIO Farmer, ISREAL [...] CAPS * Refills: 0 M.A. Active Nystatin 308085 UNIT/GM External Cream APPLY A THIN LAYER TO AFFECTED AREA(S) AND RUB IN WELL TWICE DAILY. * Quantity: 1 Refills: 1 AYLA STEEL APRN * Start : 14-Apr-2019 Active 30 GM Tube Cranberry CAPS TAKE 1 CAPSULE DAILY * Refills: 0 M.A. Active Allergies and Adverse Reactions Name Dates [...] Procedure Dates Details CT Brain wo contrast 62303 Date: 11-Aug-2019 History of Hysterectomy Completed History of Bladder Surgery Completed History of Gallbladder surgery Completed History of Hysterectomy total Completed History of CABG Completed Immunization Name Dates Details Tdap (Adacel) on: Jun-2002 Pneumo on: Jun-2009 DT on: 23-Sep-2010 Fluzone INJ Lot #: [id number] on: 25-Apr-2013 Influenza on: Mar-2014 Zoster (Zostavax) on: 08-Mar-2014 Prevnar 13 Intramuscular Suspension Lot #: [id number] on: 21-Sep-2014 Fluzone INJ Lot #: [id number] on: 09-Feb-2015 Fluzone Quadrivalent 0.5 ML Intramuscular Suspension Prefilled Syringe Lot #: [id number] on: 20-Mar-2016 Fluzone High-Dose 0.5 ML Intramuscular Suspension Prefilled Syringe Lot #: [id number] on: 23-Apr-2017 Fluzone Quadrivalent 0.5 ML Intramuscular Suspension Lot #: [id number] on: 09-Mar-2018 Flucelvax Quadrivalent Intramuscular Suspension Lot #: [id number] on: 30-Mar-2019 Family History Name Dates Details [...] is approximately 13% higher for peopleidentified as -[place] Korean. eGFR NON- 86 {ML/MIN/1.7} (Normal) Range: > [...] ALT 13 u/l (Normal) Range: 6-29 :30 [[facility]] URINALYSIS, COMPLETE W/REFLEX TO CULTURE COLOR YELLOW [...] NONE SEEN {/LPF} (Normal) Range: NONE SEEN : [Q] REFLEXIVE URINE CULTURE REFLEXIVE URINE CULTURE NO CULTURE INDICATED [[facility]] CBC (INCLUDES DIFF/PLT) WHITE BLOOD CELL [...] 7.5-12.5 ABSOLUTE NEUTROPHILS 4320 {cells/uL} (Normal) Range: 7132-0468 ABSOLUTE LYMPHOCYTES 2280 {cells/uL} (Normal) Range: 850-3900 ABSOLUTE MONOCYTES 630 {cells/uL} (Normal) Range: 200-950 ABSOLUTE EOSINOPHILS 210 {cells/uL} (Normal) Range: 15-500 ABSOLUTE BASOPHILS 60 {cells/uL} (Normal) Range: 0-200 NEUTROPHILS 57.6 % (Normal) LYMPHOCYTES 30.4 % (Normal) MONOCYTES 8.4 % (Normal) EOSINOPHILS 2.8 % (Normal) BASOPHILS 0.8 % (Normal) 7-Smo-576285:30 [[facility]] VITAMIN B12 VITAMIN B12 682 pg/ml (Normal) Range: 200-1100 1-Oqp-089190:30 [[facility]] TSH, 3RD GENERATION W/REFLEX TO FT4 Comments: REPORT COMMENT:FASTING:NO TSH, 3RD GENERATION W/REFLEX TO FT4 1.58 {MIU/L} (Normal) Range: 0.40-4.50 11-Aug-20190:00 [[facility]] CULTURE, URINE, ROUTINE CULTURE Comments: CULTURE, URINE, ROUTINE Micro Number: [id number] Test Status: Final Specimen Source: URINE Specimen [...] Problem not documented On: 16-Mar-2018 11:00 Appointment; [facility] Encounter Diagnosis: Problem not documented On: 18-Mar-2018 10:00 Appointment; [facility] Encounter Diagnosis: Problem not [...] Problem not documented On: 11-Aug-2019 13:30 Appointment; [facility], [place] Encounter Diagnosis: Problem not documented On: 11-Aug-2019 14:00
--- OUTSIDE RECORDS SUMMARY | 2019-09-10 11:23 | XMS REPORT | Summary of Care ---
Author Author [place] [facility] Address [address] [place] [address] Phone Unavailable Care Team Providers Care Claim Auditor Name Role Phone AYLA STEEL APRN Unavailable Unavailable ROGELIO KAM [place], [...] Probiotic CAPS * Refills: 0 Active Nystatin 647946 UNIT/GM External Cream APPLY A THIN LAYER [...] Procedure Dates Details CT Brain wo contrast 96692 Date: 11-Aug-2019 History of Hysterectomy Completed History of Bladder Surgery Completed History of Gallbladder surgery Completed History of Hysterectomy total Completed History of CABG Completed Immunization Name Dates Details Tdap (Adacel) on: Jun-2002 Pneumo on: Jun-2009 DT on: 23-Sep-2010 Fluzone INJ Lot #: [id number] on: 25-Apr-2013 Influenza on: Mar-2014 Zoster (Zostavax) on: 08-Mar-2014 Prevnar 13 Intramuscular Suspension Lot #: [id number] on: 21-Sep-2014 Fluzone INJ Lot #: [id number] on: 09-Feb-2015 Fluzone Quadrivalent 0.5 ML Intramuscular Suspension Prefilled Syringe Lot #: [id number] on: 20-Mar-2016 Fluzone High-Dose 0.5 ML Intramuscular Suspension Prefilled Syringe Lot #: [id number] on: 23-Apr-2017 Fluzone Quadrivalent 0.5 ML Intramuscular Suspension Lot #: [id number] on: 09-Mar-2018 Flucelvax Quadrivalent Intramuscular Suspension Lot #: [id number] on: 30-Mar-2019 Family History Name Dates Details [...] is approximately 13% higher for peopleidentified as -Omani. eGFR NON- 86 {ML/MIN/1.7} (Normal) Range: > [...] 7.5-12.5 ABSOLUTE NEUTROPHILS 4320 {cells/uL} (Normal) Range: 0123-7750 ABSOLUTE LYMPHOCYTES 2280 {cells/uL} (Normal) Range: 850-3900 ABSOLUTE MONOCYTES 630 {cells/uL} (Normal) Range: 200-950 ABSOLUTE EOSINOPHILS 210 {cells/uL} (Normal) Range: 15-500 ABSOLUTE BASOPHILS 60 {cells/uL} (Normal) Range: 0-200 NEUTROPHILS 57.6 % (Normal) LYMPHOCYTES 30.4 % (Normal) MONOCYTES 8.4 % (Normal) EOSINOPHILS 2.8 % (Normal) BASOPHILS 0.8 % (Normal) 8-Bzs-992183:30 [[facility]] VITAMIN B12 VITAMIN B12 682 pg/ml (Normal) Range: 200-1100 8-Qzr-039462:30 [[facility]] TSH, 3RD GENERATION W/REFLEX TO FT4 Comments: REPORT COMMENT:FASTING:NO TSH, 3RD GENERATION W/REFLEX TO FT4 1.58 {MIU/L} (Normal) Range: 0.40-4.50 11-Aug-20190:00 [[facility]] CULTURE, URINE, ROUTINE CULTURE Comments: CULTURE, URINE, ROUTINE Micro Number: [id number] Test Status: Final Specimen Source: URINE Specimen [...] Problem not documented On: 16-Mar-2018 11:00 Appointment; [facility] Encounter Diagnosis: Problem not documented On: 18-Mar-2018 10:00 Appointment; [facility] Encounter Diagnosis: Problem not documented [...] Problem not documented On: 11-Aug-2019 13:30 Appointment; [facility] [place] Encounter Diagnosis: Problem not documented On: 11-Aug-2019 14:00
--- OUTSIDE RECORDS SUMMARY | 2019-09-10 11:23 | XMS REPORT | Summary of Care ---
Author Author Dacia Alonzo M.A. Unknown Address Unknown Phone Unavailable Care Team Providers Care Pluck Separator Name Role Phone MILVIA IBRAHIM, AYLA Unavailable Unavailable Clinton Hayes, Dacai Unavailable Unavailable ROGELIO KAM [place], ISREAL Melton [...] Probiotic CAPS * Refills: 0 Active Nystatin 616721 UNIT/GM External Cream APPLY A THIN LAYER [...] Procedure Dates Details CT Brain wo contrast 67889 Date: 11-Aug-2019 History of Hysterectomy Completed History of Bladder Surgery Completed History of Gallbladder surgery Completed History of Hysterectomy total Completed History of CABG Completed Immunization Name Dates Details Tdap (Adacel) on: Jun-2002 Pneumo on: Jun-2009 DT on: 23-Sep-2010 Fluzone INJ Lot #: [id number] on: 25-Apr-2013 Influenza on: Mar-2014 Zoster (Zostavax) on: 08-Mar-2014 Prevnar 13 Intramuscular Suspension Lot #: [id number] on: 21-Sep-2014 Fluzone INJ Lot #: [id number] on: 09-Feb-2015 Fluzone Quadrivalent 0.5 ML Intramuscular Suspension Prefilled Syringe Lot #: [id number] on: 20-Mar-2016 Fluzone High-Dose 0.5 ML Intramuscular Suspension Prefilled Syringe Lot #: [id number] on: 23-Apr-2017 Fluzone Quadrivalent 0.5 ML Intramuscular Suspension Lot #: [id number] on: 09-Mar-2018 Flucelvax Quadrivalent Intramuscular Suspension Lot #: [id number] on: 30-Mar-2019 Family History Name Dates Details [...] CULTURE REFLEXIVE URINE CULTURE NO CULTURE INDICATED [QL] CBC (INCLUDES DIFF/PLT) WHITE BLOOD CELL COUNT [...] 7.5-12.5 ABSOLUTE NEUTROPHILS 4320 {cells/uL} (Normal) Range: 8725-6700 ABSOLUTE LYMPHOCYTES 2280 {cells/uL} (Normal) Range: 850-3900 ABSOLUTE MONOCYTES 630 {cells/uL} (Normal) Range: 200-950 ABSOLUTE EOSINOPHILS 210 {cells/uL} (Normal) Range: 15-500 ABSOLUTE BASOPHILS 60 {cells/uL} (Normal) Range: 0-200 NEUTROPHILS 57.6 % (Normal) LYMPHOCYTES 30.4 % (Normal) MONOCYTES 8.4 % (Normal) EOSINOPHILS 2.8 % (Normal) BASOPHILS 0.8 % (Normal) 8-Vki-010429:30 [[facility]] VITAMIN B12 VITAMIN B12 682 pg/ml (Normal) Range: 200-1100 6-Whq-393388:30 [[facility]] TSH, 3RD GENERATION W/REFLEX TO FT4 Comments: REPORT COMMENT:FASTING:NO TSH, 3RD GENERATION W/REFLEX TO FT4 1.58 {MIU/L} (Normal) Range: 0.40-4.50 11-Aug-20190:00 [[facility]] CULTURE, URINE, ROUTINE CULTURE Comments: CULTURE, URINE, ROUTINE Micro Number: [id number] Test Status: Final Specimen Source: URINE Specimen [...] Problem not documented On: 16-Mar-2018 11:00 Appointment; [facility] Encounter Diagnosis: Problem not documented On: 18-Mar-2018 10:00 Appointment; [facility] Encounter Diagnosis: Problem not documented On: [...] Problem not documented On: 11-Aug-2019 13:30 Appointment; [facility], [place] Encounter Diagnosis: Problem not documented On: 11-Aug-2019 14:00
--- OUTSIDE RECORDS SUMMARY | 2019-09-10 11:23 | XMS REPORT | Summary of Care ---
Author Author [place] [facility] [place] [facility] Address [address] [place] [address] Phone Unavailable Care Team Providers Care Home Appliances Mechanic Name Role Phone AYLA STEEL APRN Unavailable [...] Probiotic CAPS * Refills: 0 Active Nystatin 416163 UNIT/GM External Cream APPLY A THIN LAYER [...] Procedure Dates Details CT Brain wo contrast 85894 Date: 11-Aug-2019 History of Hysterectomy Completed History of Bladder Surgery Completed History of Gallbladder surgery Completed History of Hysterectomy total Completed History of CABG Completed Immunization Name Dates Details Tdap (Adacel) on: Jun-2002 Pneumo on: Jun-2009 DT on: 23-Sep-2010 Fluzone INJ Lot #: [id number] on: 25-Apr-2013 Influenza on: Mar-2014 Zoster (Zostavax) on: 08-Mar-2014 Prevnar 13 Intramuscular Suspension Lot #: [id number] on: 21-Sep-2014 Fluzone INJ Lot #: [id number] on: 09-Feb-2015 Fluzone Quadrivalent 0.5 ML Intramuscular Suspension Prefilled Syringe Lot #: [id number] on: 20-Mar-2016 Fluzone High-Dose 0.5 ML Intramuscular Suspension Prefilled Syringe Lot #: [id number] on: 23-Apr-2017 Fluzone Quadrivalent 0.5 ML Intramuscular Suspension Lot #: [id number] on: 09-Mar-2018 Flucelvax Quadrivalent Intramuscular Suspension Lot #: [id number] on: 30-Mar-2019 Family History Name Dates Details [...] is approximately 13% higher for peopleidentified as -Bruneian. eGFR NON- 86 {ML/MIN/1.7} (Normal) Range: > [...] 7.5-12.5 ABSOLUTE NEUTROPHILS 4320 {cells/uL} (Normal) Range: 4923-8096 ABSOLUTE LYMPHOCYTES 2280 {cells/uL} (Normal) Range: 850-3900 ABSOLUTE MONOCYTES 630 {cells/uL} (Normal) Range: 200-950 ABSOLUTE EOSINOPHILS 210 {cells/uL} (Normal) Range: 15-500 ABSOLUTE BASOPHILS 60 {cells/uL} (Normal) Range: 0-200 NEUTROPHILS 57.6 % (Normal) LYMPHOCYTES 30.4 % (Normal) MONOCYTES 8.4 % (Normal) EOSINOPHILS 2.8 % (Normal) BASOPHILS 0.8 % (Normal) 5-Xwa-743530:30 [[facility]] VITAMIN B12 VITAMIN B12 682 pg/ml (Normal) Range: 200-1100 5-Wnb-389466:30 [[facility]] TSH, 3RD GENERATION W/REFLEX TO FT4 Comments: REPORT COMMENT:FASTING:NO TSH, 3RD GENERATION W/REFLEX TO FT4 1.58 {MIU/L} (Normal) Range: 0.40-4.50 11-Aug-20190:00 [[facility]] CULTURE, URINE, ROUTINE CULTURE Comments: CULTURE, URINE, ROUTINE Micro Number: [id number] Test Status: Final Specimen Source: URINE Specimen Quality: Adequate Result: No Growth Plan of Care Name Dates Details Planned Observations Planned Goals not documented Planned Encounters Appointment; CHETAN TAPIA M.D. On: 06-Sep-2019 14:40 Appointment; DAE SARAH M.D. On: 20-Jan-2020 13:45 Appointment; PRADEEP PAERL D.O. On: 14-May-2020 14:10 Instructions Name Dates [...] Problem not documented On: 16-Mar-2018 11:00 Appointment; [facility] Encounter Diagnosis: Problem not documented On: 18-Mar-2018 10:00 Appointment; [facility] Encounter Diagnosis: Problem not documented On: [...] not documented On: 11-Aug-2019 13:30 Appointment; [facility] [place] Encounter Diagnosis: Problem not documented On: 11-Aug-2019 14:00
--- OUTSIDE RECORDS SUMMARY | 2019-09-10 11:24 | XMS REPORT | Summary of Care ---
Author Author [facility] Address [address] [place] [address] Phone Unavailable Care Team Providers Care House Mover Supervisor Name Role Phone AYLA STEEL APRN Unavailable Unavailable ROGELIO KAM PA, ISREAL Melton Unavailable Unavailable RYANNE CORREA, PRADEEP Villegas Unavailable Unavailable SHANTELLE DIANA, JOEL Unavailable Unavailable Aspen KAM, Chetan Unavailable Unavailable CHRISTOFER Farmer, VANI Unavailable Unavailable CHRISTOFER KAM PA, VANI CORBETT Unavailable Unavailable ROGELIO Farmer, ISREAL [...] thyroid function test (794.5, R94.6) Status: Active Sore throat (462, J02.9) Status: Active Productive cough (786.2, R05) Status: Active Normal blood pressure Status: Active Chronic cough (786.2, R05) Status: Active Encounter for mini-mental status examination Status: Active Need for hepatitis C screening test (V73.89, Z11.59) Status: Active Acute non-recurrent maxillary sinusitis (461.0, J01.00) Status: Active Acute pain of right knee (719.46, M25.561) Status: Active Renal cyst, left (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.10, N28.1) Status: Active Advance directive discussed with patient (V65.49, Z71.89) Status: Active Arthralgia of multiple sites (719.49, M25.50) Status: Active Acute vaginitis (616.10, N76.0) Status: Active At low risk for fall (V49.89, Z91.81) Status: Active Depression screening (V79.0, Z13.31) Status: Active Acute pain in left eye (379.91, H57.12) Status: Active Bilateral leg cramps (729.82, R25.2) Status: Active Anxiety (300.00, F41.9) Status: Active Seasonal allergic rhinitis (477.9, J30.2) Status: Active Knee pain, bilateral (719.46, M25.561) Status: Active GERD (gastroesophageal reflux disease) (530.81, K21.9) Status: Active History of colon polyps (V12.72, Z86.010) Status: Active Ear pain (388.70, H92.09) Status: Active Allergic rhinitis (477.9, J30.9) Status: Active Acute frontal sinusitis (461.1, J01.10) Status: Active Acquired hammer toe of left foot (735.4, M20.42) Status: Active Depressive disorder (311, F32.9) Status: Active Cat bite (879.8, W55.01XA) Status: Active Hyperlipidemia (272.4, E78.5) Status: Active Insomnia (780.52, G47.00) Status: Active Hematuria (599.70, R31.9) Status: Active Asymptomatic microscopic hematuria (599.72, R31.21) Status: Active Shortness of breath (786.05, R06.02) Status: Active Acute bronchitis due to infection (466.0, J20.8) Status: Active Asthma (493.90, J45.909) Status: Active Encounter for screening mammogram for malignant neoplasm of breast (V76.12, Z12.31) Status: Active Estrogen deficiency (256.39, E28.39) Status: Active Diffuse abdominal pain (789.00, R10.84) Status: Active Candidiasis of breast (112.89, B37.89) Status: Active UTI (urinary tract infection) (599.0, N39.0) Status: Active H. pylori infection (041.86, A04.8) Status: Active Encounter to discuss test results (V65.49, Z71.2) Status: Active Hematuria, microscopic (599.72, R31.29) Status: Active Vaginal atrophy (627.3, N95.2) Status: Active Bunion, left (727.1, M21.612) Status: Active Decreased vision of left eye (369.8, H54.62) Status: Active Abdominal pain (789.00, R10.9) Status: Active H pylori ulcer (533.90, K27.9) Status: Active Former smoker (V15.82, Z87.891) Status: Active Essential hypertension (401.9, I10) Status: Active Heart palpitations (785.1, R00.2) Status: Active Tachycardia (785.0, R00.0) Status: Active Shakiness (781.0, R25.1) Status: Active Fatigue (780.79, R53.83) Status: Active New onset of headaches (784.0, R51) Status: Active Dry cough (786.2, R05) Status: Active Screening for thyroid disorder (V77.0, Z13.29) Status: Active Flu vaccine need (V04.81, Z23) Status: Active Dysfunction of left eustachian tube (381.81, H69.82) Status: Active Urinary symptom or sign (788.99, R39.9) Status: Active Abscess of leg (682.6, L02.419) Status: Active Dizziness (780.4, R42) Status: Active Knee pain, left (719.46, M25.562) Status: Active Dry eyes, bilateral (375.15, H04.123) Status: Active Abnormal urine finding (791.9, R82.90) Status: Active Gastric reflux syndrome (530.81, K21.9) Status: Active Allergic rhinitis due to pollen (477.0, J30.1) Status: Active 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, R31.1) Status: Active 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, M35.9) Status: Active Nevus, non-neoplastic (448.1, I78.1) Status: Active Abdominal pain, RUQ (789.01, R10.11) Status: Active 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, F34.1) Status: Active Other fatigue (780.79, R53.83) Status: Active Acute bronchitis (466.0, J20.9) Status: Active Osteopenia (733.90, M85.80) Status: Active Visit for screening mammogram (V76.12, Z12.31) Status: Active Other insomnia (780.52, G47.09) Status: Active Acute upper respiratory infection (465.9, J06.9) Status: Active Acute sinus infection (461.9, J01.90) Status: Active Xeroderma (757.39, Q80.9) Status: Active History of dry mouth (V12.79, Z87.19) Status: Active 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, 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 Postmenopausal hormone replacement therapy (V07.4, Z79.890) Status: Active 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, F34.1) Status: Active Limb pain (729.5, M79.609) Status: Active Upper respiratory infection (465.9, J06.9) Status: Active Sinusitis (473.9, J32.9) Status: Active Pain in both feet (729.5, M79.671) Status: Active Obesity (BMI 30.0-34.9) (278.00, E66.9) Status: Active Influenza vaccine needed (V04.81, Z23) Status: Active Abdominal pain, LLQ (left lower quadrant) (789.04, R10.32) Status: Active Urinary tract infection (599.0, N39.0) Status: Active Dysuria (788.1, R30.0) Status: Active Nasal polyp (471.9, J33.9) Status: Active Hypertrophy of nasal turbinates (478.0, J34.3) Status: Active GERD (gastroesophageal reflux disease) (530.81, K21.9) Status: Active Iron deficiency (280.9, E61.1) Status: Active Need for pneumococcal vaccination (V03.82, Z23) Status: Active Screen for colon cancer (V76.51, Z12.11) Status: Active Dysphagia (787.20, R13.10) Status: Active Elevated WBCs (288.60, D72.829) Status: Active Eczema intertrigo (695.89, L30.4) Status: Active Candidiasis, cutaneous (112.3, B37.2) Status: Active Plantar fasciitis (728.71, M72.2) Status: Active Polyarthropathy, 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 * Quantity: 1 Refills: 1 AYLA STEEL APRN * Start : 14-Apr-2019 Active 30 GM Tube Cranberry CAPS TAKE 1 CAPSULE DAILY * Refills: 0 Active Probiotic CAPS * Refills: 0 Active Vitamin D3 TABS * Refills: 0 Active Allergies and Adverse [...] Procedure Dates Details CT Brain wo contrast 67502 Date: 11-Aug-2019 History of Hysterectomy Completed History of Bladder Surgery Completed History of Gallbladder surgery Completed History of Hysterectomy total Completed History of CABG Completed Immunization Name Dates Details Tdap (Adacel) on: Jun-2002 Pneumo on: Jun-2009 DT on: 23-Sep-2010 Fluzone INJ Lot #: [id number] on: 25-Apr-2013 Influenza on: Mar-2014 Zoster (Zostavax) on: 08-Mar-2014 Prevnar 13 Intramuscular Suspension Lot #: [id number] on: 21-Sep-2014 Fluzone INJ Lot #: [id number] on: 09-Feb-2015 Fluzone Quadrivalent 0.5 ML Intramuscular Suspension Prefilled Syringe Lot #: [id number] on: 20-Mar-2016 Fluzone High-Dose 0.5 ML Intramuscular Suspension Prefilled Syringe Lot #: [id number] on: 23-Apr-2017 Fluzone Quadrivalent 0.5 ML Intramuscular Suspension Lot #: [id number] on: 09-Mar-2018 Flucelvax Quadrivalent Intramuscular Suspension Lot #: [id number] on: 30-Mar-2019 Family History Name Dates Details [...] is approximately 13% higher for peopleidentified as -[place]. eGFR NON- 86 {ML/MIN/1.7} (Normal) Range: > [...] 7.5-12.5 ABSOLUTE NEUTROPHILS 4320 {cells/uL} (Normal) Range: 4949-2060 ABSOLUTE LYMPHOCYTES 2280 {cells/uL} (Normal) Range: 850-3900 ABSOLUTE MONOCYTES 630 {cells/uL} (Normal) Range: 200-950 ABSOLUTE EOSINOPHILS 210 {cells/uL} (Normal) Range: 15-500 ABSOLUTE BASOPHILS 60 {cells/uL} (Normal) Range: 0-200 NEUTROPHILS 57.6 % (Normal) LYMPHOCYTES 30.4 % (Normal) MONOCYTES 8.4 % (Normal) EOSINOPHILS 2.8 % (Normal) BASOPHILS 0.8 % (Normal) 3-Rwh-681627:30 [[facility]] VITAMIN B12 VITAMIN B12 682 pg/ml (Normal) Range: 200-1100 8-Cnr-877832:30 [[facility]] TSH, 3RD GENERATION W/REFLEX TO FT4 Comments: REPORT COMMENT:FASTING:NO TSH, 3RD GENERATION W/REFLEX TO FT4 1.58 {MIU/L} (Normal) Range: 0.40-4.50 11-Aug-20190:00 [[facility]] CULTURE, URINE, ROUTINE CULTURE Comments: CULTURE, URINE, ROUTINE Micro Number: [id number] Test Status: Final Specimen Source: URINE Specimen [...] Problem not documented On: 16-Mar-2018 11:00 Appointment; [facility]]-[place], ECHO Encounter Diagnosis: Problem not documented On: 18-Mar-2018 10:00 Appointment; [facility]]-[place], ECHO Encounter Diagnosis: Problem not documented On: [...]
--- OUTSIDE RECORDS SUMMARY | 2019-09-10 11:24 | XMS REPORT | Summary of Care ---
Author Author [facility] Address [address] [place] [address] Phone Unavailable Care Team Providers Care Supervisor Filter Assembly Name Role Phone AYLA STEEL APRN Unavailable Unavailable ROGELIO KAM [place], ISREAL Melton Unavailable Unavailable RYANNE CORREA, PRADEEP Villegas Unavailable Unavailable SHANTELLE DIANA, JOEL Unavailable Unavailable Aspen KAM, Chetan Unavailable Unavailable CHRISTOFER Farmer, VANI Unavailable Unavailable CHRISTOFER KAM [place], VANI CORBETT Unavailable Unavailable ROGELIO Farmer, ISREAL [...] thyroid function test (794.5, R94.6) Status: Active Elevated WBCs (288.60, D72.829) Status: Active Iron deficiency (280.9, E61.1) Status: Active Encounter for mini-mental status examination Status: Active Need for hepatitis C screening test (V73.89, Z11.59) Status: Active Upper respiratory infection (465.9, J06.9) [...] respiratory infection (465.9, J06.9) Status: Active Acute bronchitis (466.0, J20.9) Status: Active Knee pain, bilateral (719.46, M25.561) Status: Active Other fatigue (780.79, R53.83) Status: Active 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, F34.1) Status: Active Nevus, non-neoplastic (448.1, I78.1) Status: Active 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, M35.9) Status: Active Gastric reflux syndrome (530.81, K21.9) [...] Flu vaccine need (V04.81, Z23) Status: Active Allergic rhinitis due to pollen (477.0, J30.1) Status: Active 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, 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.1) Status: Active Ear pain (388.70, H92.09) Status: Active History of colon polyps (V12.72, Z86.010) Status: Active GERD (gastroesophageal reflux disease) (530.81, K21.9) Status: Active Abdominal pain, RUQ (789.01, R10.11) Status: Active Seasonal allergic rhinitis (477.9, J30.2) Status: Active Anxiety (300.00, F41.9) Status: Active Bilateral leg cramps (729.82, R25.2) Status: Active Acute pain in left eye (379.91, H57.12) Status: Active Osteopenia (733.90, M85.80) Status: Active Visit for screening mammogram (V76.12, Z12.31) Status: Active Other insomnia (780.52, G47.09) Status: Active Renal cyst, left (753.10, N28.1) Status: Active Acute pain of right knee (719.46, M25.561) Status: Active Acute non-recurrent maxillary sinusitis (461.0, J01.00) Status: Active Sinusitis (473.9, J32.9) Status: Active [...] (gastroesophageal reflux disease) (530.81, K21.9) Status: Active Need for pneumococcal vaccination (V03.82, Z23) Status: Active Chronic cough (786.2, R05) Status: Active Normal blood pressure Status: Active Productive cough (786.2, R05) Status: Active Sore throat (462, J02.9) Status: Active Screen for colon cancer (V76.51, Z12.11) Status: Active Dysphagia (787.20, R13.10) Status: Active Eczema intertrigo (695.89, L30.4) Status: Active Candidiasis, cutaneous (112.3, B37.2) Status: Active Plantar fasciitis (728.71, M72.2) Status: Active Polyarthropathy, 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 * Quantity: 90 Refills: 1 AYLA STEEL APRN * Start : 07-Apr-2017 Active Vitamin D3 TABS * Refills: 0 Active Probiotic CAPS * Refills: 0 Active Nystatin 579230 UNIT/GM External Cream APPLY A THIN LAYER TO AFFECTED AREA(S) AND RUB IN WELL TWICE DAILY. * Quantity: 1 Refills: 1 AYLA STEEL APRN * Start : 14-Apr-2019 Active 30 GM Tube Cranberry CAPS TAKE 1 CAPSULE DAILY * Refills: 0 Active Proventil HFA 108 (90 Base) MCG/ACT Inhalation Aerosol Solution INHALE 1 TO 2 PUFFS EVERY 4 TO 6 HOURS NEEDED. * Quantity: 1 Refills: 2 AYLA STEEL APRN * Start : 20-Jan-2017 Active 6.7 GM Inhaler Allergies and Adverse Reactions Name Dates Details [...] Procedure Dates Details CT Brain wo contrast 29501 Date: 11-Aug-2019 History of Hysterectomy Completed History of Bladder Surgery Completed History of Gallbladder surgery Completed History of Hysterectomy total Completed History of CABG Completed Immunization Name Dates Details Tdap (Adacel) on: Jun-2002 Pneumo on: Jun-2009 DT on: 23-Sep-2010 Fluzone INJ Lot #: [id number] on: 25-Apr-2013 Influenza on: Mar-2014 Zoster (Zostavax) on: 08-Mar-2014 Prevnar 13 Intramuscular Suspension Lot #: [id number] on: 21-Sep-2014 Fluzone INJ Lot #: [id number] on: 09-Feb-2015 Fluzone Quadrivalent 0.5 ML Intramuscular Suspension Prefilled Syringe Lot #: [id number] on: 20-Mar-2016 Fluzone High-Dose 0.5 ML Intramuscular Suspension Prefilled Syringe Lot #: [id number] on: 23-Apr-2017 Fluzone Quadrivalent 0.5 ML Intramuscular Suspension Lot #: [id number] on: 09-Mar-2018 Flucelvax Quadrivalent Intramuscular Suspension Lot #: [id number] on: 30-Mar-2019 Family History Name Dates Details [...] 7.5-12.5 ABSOLUTE NEUTROPHILS 4320 {cells/uL} (Normal) Range: 5436-7984 ABSOLUTE LYMPHOCYTES 2280 {cells/uL} (Normal) Range: 850-3900 ABSOLUTE MONOCYTES 630 {cells/uL} (Normal) Range: 200-950 ABSOLUTE EOSINOPHILS 210 {cells/uL} (Normal) Range: 15-500 ABSOLUTE BASOPHILS 60 {cells/uL} (Normal) Range: 0-200 NEUTROPHILS 57.6 % (Normal) LYMPHOCYTES 30.4 % (Normal) MONOCYTES 8.4 % (Normal) EOSINOPHILS 2.8 % (Normal) BASOPHILS 0.8 % (Normal) 6-Pqf-988208:30 [[facility]] VITAMIN B12 VITAMIN B12 682 pg/ml (Normal) Range: 200-1100 4-Zol-980609:30 [[facility]] TSH, 3RD GENERATION W/REFLEX TO FT4 Comments: REPORT COMMENT:FASTING:NO TSH, 3RD GENERATION W/REFLEX TO FT4 1.58 {MIU/L} (Normal) Range: 0.40-4.50 11-Aug-20190:00 [[facility]] CULTURE, URINE, ROUTINE CULTURE Comments: CULTURE, URINE, ROUTINE Micro Number: [id number] Test Status: Final Specimen Source: URINE Specimen [...] Problem not documented On: 16-Mar-2018 11:00 Appointment; [facility], [facility] Encounter Diagnosis: Problem not documented On: 18-Mar-2018 10:00 Appointment; [facility], E[facility] Encounter Diagnosis: Problem not documented On: [...]
--- OUTSIDE RECORDS SUMMARY | 2019-09-10 11:24 | XMS REPORT | Summary of Care ---
Author Author [facility] Address [address] [place] [address] Phone Unavailable Care Team Providers Care Glaze Handler Name Role Phone AYLA STEEL APRN Unavailable Unavailable ROGELIO KAM [place], ISREAL Melton Unavailable Unavailable RYANNE CORREA, PRADEEP Villegas Unavailable Unavailable SHANTELLE DIANA, JOEL Unavailable Unavailable Aspen KAM, Chetan Unavailable Unavailable CHRISTOFER Farmer, VANI Unavailable Unavailable CHRISTOFER KAM [place], VANI CORBETT Unavailable Unavailable ROGELIO Farmer, ISREAL [...] Active Probiotic CAPS * Refills: 0 Active Cranberry CAPS TAKE 1 CAPSULE DAILY * Refills: 0 Active Nystatin 473892 UNIT/GM External Cream APPLY A THIN LAYER TO AFFECTED AREA(S) AND RUB IN WELL TWICE DAILY. * Quantity: 1 Refills: 1 AYLA STEEL APRN * Start : 14-Apr-2019 Active 30 GM Tube Allergies and Adverse Reactions Name Dates Details [...] Procedure Dates Details CT Brain wo contrast 18777 Date: 11-Aug-2019 History of Hysterectomy Completed History of Bladder Surgery Completed History of Gallbladder surgery Completed History of Hysterectomy total Completed History of CABG Completed Immunization Name Dates Details Tdap (Adacel) on: Jun-2002 Pneumo on: Jun-2009 DT on: 23-Sep-2010 Fluzone INJ Lot #: [id number] on: 25-Apr-2013 Influenza on: Mar-2014 Zoster (Zostavax) on: 08-Mar-2014 Prevnar 13 Intramuscular Suspension Lot #: [id number] on: 21-Sep-2014 Fluzone INJ Lot #: [id number] on: 09-Feb-2015 Fluzone Quadrivalent 0.5 ML Intramuscular Suspension Prefilled Syringe Lot #: [id number] on: 20-Mar-2016 Fluzone High-Dose 0.5 ML Intramuscular Suspension Prefilled Syringe Lot #: [id number] on: 23-Apr-2017 Fluzone Quadrivalent 0.5 ML Intramuscular Suspension Lot #: [id number] on: 09-Mar-2018 Flucelvax Quadrivalent Intramuscular Suspension Lot #: [id number] on: 30-Mar-2019 Family History Name Dates Details [...] is approximately 13% higher for peopleidentified as -[place]. eGFR NON- 86 {ML/MIN/1.7} (Normal) Range: > [...] 7.5-12.5 ABSOLUTE NEUTROPHILS 4320 {cells/uL} (Normal) Range: 2005-0395 ABSOLUTE LYMPHOCYTES 2280 {cells/uL} (Normal) Range: 850-3900 ABSOLUTE MONOCYTES 630 {cells/uL} (Normal) Range: 200-950 ABSOLUTE EOSINOPHILS 210 {cells/uL} (Normal) Range: 15-500 ABSOLUTE BASOPHILS 60 {cells/uL} (Normal) Range: 0-200 NEUTROPHILS 57.6 % (Normal) LYMPHOCYTES 30.4 % (Normal) MONOCYTES 8.4 % (Normal) EOSINOPHILS 2.8 % (Normal) BASOPHILS 0.8 % (Normal) 7-Zff-008137:30 [[facility]] VITAMIN B12 VITAMIN B12 682 pg/ml (Normal) Range: 200-1100 6-Qsl-915030:30 [[facility]] TSH, 3RD GENERATION W/REFLEX TO FT4 Comments: REPORT COMMENT:FASTING:NO TSH, 3RD GENERATION W/REFLEX TO FT4 1.58 {MIU/L} (Normal) Range: 0.40-4.50 11-Aug-20190:00 [[facility]] CULTURE, URINE, ROUTINE CULTURE Comments: CULTURE, URINE, ROUTINE Micro Number: [id number] Test Status: Final Specimen Source: URINE Specimen [...] Problem not documented On: 16-Mar-2018 11:00 Appointment; [facility], ECHO Encounter Diagnosis: Problem not documented On: 18-Mar-2018 10:00 Appointment; [facility], E[facility] Encounter Diagnosis: Problem not documented [...] Problem not documented On: 11-Aug-2019 13:30 Appointment; [facility] [place] Encounter Diagnosis: Problem not documented On: 11-Aug-2019 14:00
--- OUTSIDE RECORDS SUMMARY | 2019-09-10 11:25 | XMS REPORT | Summary of Care ---
Author Author [facility] Address [address] [place] [address] Phone Unavailable Care Team Providers Care Senior Operator Name Role Phone AYLA STEEL APRN Unavailable Unavailable ROGELIO KAM [place], ISREAL Melton Unavailable Unavailable RYANNE CORREA, PRADEEP Villegas Unavailable Unavailable SHANTELLE DIANA, JOEL Unavailable Unavailable Aspen KAM, Chetan Unavailable Unavailable CHRISTOFER Farmer, VANI Unavailable Unavailable CHRISTOFER KAM [place], VANI CORBETT Unavailable Unavailable ROGELIO Farmer, ISREAL [...] Abdominal pain, RUQ (789.01, R10.11) Status: Active 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, M35.9) Status: Active Gastric reflux syndrome (530.81, K21.9) Status: Active Abnormal urine finding (791.9, R82.90) Status: Active Acquired hammer toe of left foot (735.4, M20.42) Status: Active Dizziness (780.4, R42) Status: Active [...] for thyroid disorder (V77.0, Z13.29) Status: Active Vaginal atrophy (627.3, N95.2) Status: [...] Active Dry cough (786.2, R05) Status: Active Hematuria, microscopic (599.72, R31.29) Status: Active Knee pain, left (719.46, M25.562) Status: Active Depressive disorder (311, F32.9) Status: Active Dry eyes, bilateral (375.15, H04.123) Status: Active Acute frontal sinusitis (461.1, J01.10) Status: Active Allergic rhinitis (477.9, J30.9) Status: Active Allergic rhinitis due to pollen (477.0, J30.1) Status: Active 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, 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.1) Status: Active Ear pain (388.70, H92.09) Status: Active History of colon polyps (V12.72, Z86.010) Status: Active GERD (gastroesophageal reflux disease) (530.81, K21.9) Status: Active Nevus, non-neoplastic (448.1, I78.1) Status: Active Constipation (564.00, K59.00) Status: Active Urinary symptom or sign (788.99, R39.9) Status: Active Medications Name Dates Details Atorvastatin [...] Probiotic CAPS * Refills: 0 Active Nystatin 069862 UNIT/GM External Cream APPLY A THIN LAYER [...] Procedure Dates Details CT Brain wo contrast 17769 Date: 11-Aug-2019 History of Hysterectomy Completed History of Bladder Surgery Completed History of Gallbladder surgery Completed History of Hysterectomy total Completed History of CABG Completed Immunization Name Dates Details Tdap (Adacel) on: Jun-2002 Pneumo on: Jun-2009 DT on: 23-Sep-2010 Fluzone INJ Lot #: [id number] on: 25-Apr-2013 Influenza on: Mar-2014 Zoster (Zostavax) on: 08-Mar-2014 Prevnar 13 Intramuscular Suspension Lot #: [id number] on: 21-Sep-2014 Fluzone INJ Lot #: [id number] on: 09-Feb-2015 Fluzone Quadrivalent 0.5 ML Intramuscular Suspension Prefilled Syringe Lot #: [id number] on: 20-Mar-2016 Fluzone High-Dose 0.5 ML Intramuscular Suspension Prefilled Syringe Lot #: [id number] on: 23-Apr-2017 Fluzone Quadrivalent 0.5 ML Intramuscular Suspension Lot #: [id number] on: 09-Mar-2018 Flucelvax Quadrivalent Intramuscular Suspension Lot #: [id number] on: 30-Mar-2019 Family History Name Dates Details [...] is approximately 13% higher for peopleidentified as -[place] Citizen. eGFR NON- 86 {ML/MIN/1.7} (Normal) Range: > [...] 7.5-12.5 ABSOLUTE NEUTROPHILS 4320 {cells/uL} (Normal) Range: 1824-9750 ABSOLUTE LYMPHOCYTES 2280 {cells/uL} (Normal) Range: 850-3900 ABSOLUTE MONOCYTES 630 {cells/uL} (Normal) Range: 200-950 ABSOLUTE EOSINOPHILS 210 {cells/uL} (Normal) Range: 15-500 ABSOLUTE BASOPHILS 60 {cells/uL} (Normal) Range: 0-200 NEUTROPHILS 57.6 % (Normal) LYMPHOCYTES 30.4 % (Normal) MONOCYTES 8.4 % (Normal) EOSINOPHILS 2.8 % (Normal) BASOPHILS 0.8 % (Normal) 3-Fse-079251:30 [[facility]] VITAMIN B12 VITAMIN B12 682 pg/ml (Normal) Range: 200-1100 0-Uwi-486017:30 [[facility]] TSH, 3RD GENERATION W/REFLEX TO FT4 Comments: REPORT COMMENT:FASTING:NO TSH, 3RD GENERATION W/REFLEX TO FT4 1.58 {MIU/L} (Normal) Range: 0.40-4.50 11-Aug-20190:00 [[facility]] CULTURE, URINE, ROUTINE CULTURE Comments: CULTURE, URINE, ROUTINE Micro Number: [id number] Test Status: Final Specimen Source: URINE Specimen Quality: Adequate Result: No Growth Plan of Care Name Dates Details Planned Observations Planned Goals not documented Planned Encounters Appointment; CHETAN TAPIA M.D. On: 06-Sep-2019 14:40 Appointment; DAE SARAH M.D. On: 20-Jan-2020 13:45 Appointment; PRADEEP PEARL D.O. On: 14-May-2020 14:10 Instructions Name Dates Details Instructions not documented Encounters Appointment; FRANC ROBERTO M.D. Encounter Diagnosis: Problem [...] Problem not documented On: 16-Mar-2018 11:00 Appointment; [facility], [facility] Encounter Diagnosis: Problem not documented On: 18-Mar-2018 10:00 Appointment; [facility], [facility] Encounter Diagnosis: Problem not documented On: [...] Problem not documented On: 11-Aug-2019 13:30 Appointment; [facility] [place] Encounter Diagnosis: Problem not documented On: 11-Aug-2019 14:00
--- OUTSIDE RECORDS SUMMARY | 2019-09-10 11:25 | XMS REPORT | Summary of Care ---
Author Author Selena Zamora LVN Organization Unknown Address [facility] Phone Unavailable Care Team Providers Care Lens Polisher Name Role Phone MILVIA IBRAHIM, AYLA Unavailable Unavailable Selena Zamora LVN Unavailable Unavailable ROGELIO KAM MI, ISREAL Melton [...] onset of headaches (784.0, R51) Status: Active Jaw pain (784.92, R68.84) Status: Active Medications Name Dates Details Atorvastatin [...] Probiotic CAPS * Refills: 0 Active Nystatin 944545 UNIT/GM External Cream APPLY A THIN LAYER [...] Details History of Hysterectomy Completed History of Bladder Surgery Completed History of Gallbladder surgery Completed History of Hysterectomy total Completed History of CABG Completed Immunization Name Dates Details Tdap (Adacel) on: Jun-2002 Pneumo on: Jun-2009 DT on: 23-Sep-2010 Fluzone INJ Lot #: [id number] on: 25-Apr-2013 Influenza on: Mar-2014 Zoster (Zostavax) on: 08-Mar-2014 Prevnar 13 Intramuscular Suspension Lot #: [id number] on: 21-Sep-2014 Fluzone INJ Lot #: [id number] on: 09-Feb-2015 Fluzone Quadrivalent 0.5 ML Intramuscular Suspension Prefilled Syringe Lot #: [id number] on: 20-Mar-2016 Fluzone High-Dose 0.5 ML Intramuscular Suspension Prefilled Syringe Lot #: [id number] on: 23-Apr-2017 Fluzone Quadrivalent 0.5 ML Intramuscular Suspension Lot #: [id number] on: 09-Mar-2018 Flucelvax Quadrivalent Intramuscular Suspension Lot #: [id number] on: 30-Mar-2019 Family History Name Dates Details [...] m2 Status: Respiratory rate 16 /min Status: Results Date Description Value Details :35 [...] is approximately 13% higher for peopleidentified as -Welsh. eGFR NON- 86 {ML/MIN/1.7} (Normal) Range: > [...] 7.5-12.5 ABSOLUTE NEUTROPHILS 4320 {cells/uL} (Normal) Range: 5955-5603 ABSOLUTE LYMPHOCYTES 2280 {cells/uL} (Normal) Range: 850-3900 ABSOLUTE MONOCYTES 630 {cells/uL} (Normal) Range: 200-950 ABSOLUTE EOSINOPHILS 210 {cells/uL} (Normal) Range: 15-500 ABSOLUTE BASOPHILS 60 {cells/uL} (Normal) Range: 0-200 NEUTROPHILS 57.6 % (Normal) LYMPHOCYTES 30.4 % (Normal) MONOCYTES 8.4 % (Normal) EOSINOPHILS 2.8 % (Normal) BASOPHILS 0.8 % (Normal) 4-Tvs-204856:30 [[facility]] VITAMIN B12 VITAMIN B12 682 pg/ml (Normal) Range: 200-1100 7-Xqt-171283:30 [[facility]] TSH, 3RD GENERATION W/REFLEX TO FT4 Comments: REPORT COMMENT:FASTING:NO TSH, 3RD GENERATION W/REFLEX TO FT4 1.58 {MIU/L} (Normal) Range: 0.40-4.50 11-Aug-20190:00 [[facility]] CULTURE, URINE, ROUTINE CULTURE Comments: CULTURE, URINE, ROUTINE Micro Number: [id number] Test Status: Final Specimen Source: URINE Specimen Quality: Adequate Result: No Growth Plan of Care Name Dates Details Planned Observations Planned Goals not documented Planned Encounters ENT Referral Appointment; CHETAN TAPIA M.D. On: 06-Sep-2019 14:40 Appointment; DAE SAARH M.D. On: 20-Jan-2020 13:45 Appointment; PRADEEP PEARL [...] documented On: 09-Mar-2018 11:00 Appointment; JOSE CARMONA, P.ABlanco Encounter Diagnosis: Problem not documented On: 16-Mar-2018 11:00 Appointment; JOSE CARMONA, P.A. Encounter Diagnosis: Problem not documented On: 16-Mar-2018 11:00 Appointment; JOSE CARMONA, P.A. Encounter Diagnosis: Problem not documented On: 16-Mar-2018 11:00 Appointment; [facility] Encounter Diagnosis: Problem not documented On: 18-Mar-2018 10:00 Appoint[facility] Encounter Diagnosis: Problem not documented On: 18-Mar-2018 11:00 Appointment; JOSE CARMONA, P.A. Encounter Diagnosis: [...] Problem not documented On: 11-Aug-2019 13:30 [facility]oint[facility]; [facility] Encounter Diagnosis: Problem not documented On: 11-Aug-2019 14:00
--- OUTSIDE RECORDS SUMMARY | 2019-09-10 11:25 | XMS REPORT | Summary of Care ---
Author Author [facility] Address [address] [place] [address] Phone Unavailable Care Team Providers Care Language Assistant Name Role Phone AYLA STEEL APRN Unavailable Unavailable ROGELIO KAM MD, ISREAL Melton Unavailable Unavailable RYANNE CORREA, PRADEEP Villegas Unavailable Unavailable SHANTELLE DIANA, JOEL Unavailable Unavailable Aspen KAM, Chetan Unavailable Unavailable CHRISTOFER Farmer, VANI Unavailable Unavailable CHRISTOFER KAM MD, VANI CORBETT Unavailable Unavailable ROGELIO Farmer, ISREAL [...] Start : 20-Jan-2017 Active 6.7 GM Inhaler Vitamin D3 TABS * Refills: 0 Active Probiotic CAPS * Refills: 0 Active Nystatin 619942 UNIT/GM External Cream APPLY A THIN LAYER TO AFFECTED AREA(S) AND RUB IN WELL TWICE DAILY. * Quantity: 1 Refills: 1 AYLA STEEL APRN * Start : 14-Apr-2019 Active 30 GM Tube Cranberry CAPS TAKE 1 CAPSULE DAILY * Refills: 0 Active traZODone HCl - 50 MG Oral Tablet TAKE 1 TABLET AT BEDTIME NEEDED FOR SLEEP. * Quantity: 90 Refills: 1 AYLA STEEL APRN * Start : 07-Apr-2017 Active Allergies and Adverse Reactions Name Dates [...] DT on: 23-Sep-2010 Fluzone INJ Lot #: [id number] on: 25-Apr-2013 Influenza on: Mar-2014 Zoster (Zostavax) on: 08-Mar-2014 Prevnar 13 Intramuscular Suspension Lot #: [id number] on: 21-Sep-2014 Fluzone INJ Lot #: [id number] on: 09-Feb-2015 Fluzone Quadrivalent 0.5 ML Intramuscular Suspension Prefilled Syringe Lot #: [id number] on: 20-Mar-2016 Fluzone High-Dose 0.5 ML Intramuscular Suspension Prefilled Syringe Lot #: [id number] on: 23-Apr-2017 Fluzone Quadrivalent 0.5 ML Intramuscular Suspension Lot #: [id number] on: 09-Mar-2018 Flucelvax Quadrivalent Intramuscular Suspension Lot #: [id number] on: 30-Mar-2019 Family History Name Dates Details [...] is approximately 13% higher for peopleidentified as -Prydeinig. eGFR NON- 86 {ML/MIN/1.7} (Normal) Range: > [...] CULTURE REFLEXIVE URINE CULTURE NO CULTURE INDICATED 30 [[facility]] CBC (INCLUDES DIFF/PLT) WHITE BLOOD CELL [...] 7.5-12.5 ABSOLUTE NEUTROPHILS 4320 {cells/uL} (Normal) Range: 3437-3916 ABSOLUTE LYMPHOCYTES 2280 {cells/uL} (Normal) Range: 850-3900 ABSOLUTE MONOCYTES 630 {cells/uL} (Normal) Range: 200-950 ABSOLUTE EOSINOPHILS 210 {cells/uL} (Normal) Range: 15-500 ABSOLUTE BASOPHILS 60 {cells/uL} (Normal) Range: 0-200 NEUTROPHILS 57.6 % (Normal) LYMPHOCYTES 30.4 % (Normal) MONOCYTES 8.4 % (Normal) EOSINOPHILS 2.8 % (Normal) BASOPHILS 0.8 % (Normal) 9-Wzq-591020:30 [[facility]] VITAMIN B12 VITAMIN B12 682 pg/ml (Normal) Range: 200-1100 8-Yeg-080235:30 [[facility]] TSH, 3RD GENERATION W/REFLEX TO FT4 Comments: REPORT COMMENT:FASTING:NO TSH, 3RD GENERATION W/REFLEX TO FT4 1.58 {MIU/L} (Normal) Range: 0.40-4.50 11-Aug-20190:00 [[facility]] CULTURE, URINE, ROUTINE CULTURE Comments: CULTURE, URINE, ROUTINE Micro Number: [id number] Test Status: Final Specimen Source: URINE Specimen [...] documented On: 16-Mar-2018 11:00 Appointment; JOSE CARMONA PBlancoABalnco Encounter Diagnosis: Problem not documented On: 16-Mar-2018 11:00 Appointment; [facility], [facility] Encounter Diagnosis: Problem not documented On: 18-Mar-2018 10:00 Appointment; [facility], [facility] Encounter Diagnosis: Problem not documented On: [...] Problem not documented On: 11-Aug-2019 13:30 Appointment; [facility] Encounter Diagnosis: Problem not documented On: 11-Aug-2019 14:00
--- OUTSIDE RECORDS SUMMARY | 2019-09-10 11:26 | XMS REPORT | Summary of Care ---
Author Author AYLA STEEL APRN Organization Unknown Address Unknown Phone Unavailable Care Team Providers Care Branch Officer Name Role Phone AYLA STEEL APRN Unavailable Unavailable ROGELIO KAM [place], ISREAL Melton Unavailable Unavailable RYANNE CORREA, PRADEEP Villegas Unavailable Unavailable SHANTELLE DIANA, JOEL Unavailable Unavailable Aspen KAM, Chetan Unavailable Unavailable CHRISTOFER Farmer, VANI Unavailable Unavailable CHRISTOFER KAM [place], VANI CORBETT Unavailable Unavailable ROGELIO Farmer, ISREAL [...] Knee pain, left (719.46, M25.562) Status: Active Abscess of leg (682.6, L02.419) [...] Active Jaw pain (784.92, R68.84) Status: Active Dizziness (780.4, R42) Status: Active Abnormal CT of brain (793.0, R90.89) Status: Active Medications Name Dates Details Atorvastatin [...] CAPS * Refills: 0 M.A. Active Nystatin 475391 UNIT/GM External Cream APPLY A THIN LAYER [...] Z87.09) Status: Resolved Procedures Procedure Dates Details MRI Brain wo contrast 63651 Date: 23-Aug-2019 History of Hysterectomy Completed History of Bladder Surgery Completed History of Gallbladder surgery Completed History of Hysterectomy total Completed History of CABG Completed Immunization Name Dates Details Tdap (Adacel) on: Jun-2002 Pneumo on: Jun-2009 DT on: 23-Sep-2010 Fluzone INJ Lot #: [id number] on: 25-Apr-2013 Influenza on: Mar-2014 Zoster (Zostavax) on: 08-Mar-2014 Prevnar 13 Intramuscular Suspension Lot #: [id number] on: 21-Sep-2014 Fluzone INJ Lot #: [id number] on: 09-Feb-2015 Fluzone Quadrivalent 0.5 ML Intramuscular Suspension Prefilled Syringe Lot #: [id number] on: 20-Mar-2016 Fluzone High-Dose 0.5 ML Intramuscular Suspension Prefilled Syringe Lot #: [id number] on: 23-Apr-2017 Fluzone Quadrivalent 0.5 ML Intramuscular Suspension Lot #: [id number] on: 09-Mar-2018 Flucelvax Quadrivalent Intramuscular Suspension Lot #: [id number] on: 30-Mar-2019 Family History Name Dates Details [...] is approximately 13% higher for peopleidentified as -Nigerian. eGFR NON- 86 {ML/MIN/1.7} (Normal) Range: > [...] 7.5-12.5 ABSOLUTE NEUTROPHILS 4320 {cells/uL} (Normal) Range: 4364-7237 ABSOLUTE LYMPHOCYTES 2280 {cells/uL} (Normal) Range: 850-3900 ABSOLUTE MONOCYTES 630 {cells/uL} (Normal) Range: 200-950 ABSOLUTE EOSINOPHILS 210 {cells/uL} (Normal) Range: 15-500 ABSOLUTE BASOPHILS 60 {cells/uL} (Normal) Range: 0-200 NEUTROPHILS 57.6 % (Normal) LYMPHOCYTES 30.4 % (Normal) MONOCYTES 8.4 % (Normal) EOSINOPHILS 2.8 % (Normal) BASOPHILS 0.8 % (Normal) 2-Dwb-579770:30 [[facility]] VITAMIN B12 VITAMIN B12 682 pg/ml (Normal) Range: 200-1100 2-Une-230581:30 [[facility]] TSH, 3RD GENERATION W/REFLEX TO FT4 Comments: REPORT COMMENT:FASTING:NO TSH, 3RD GENERATION W/REFLEX TO FT4 1.58 {MIU/L} (Normal) Range: 0.40-4.50 11-Aug-20190:00 [[facility]] CULTURE, URINE, ROUTINE CULTURE Comments: CULTURE, URINE, ROUTINE Micro Number: [id number] Test Status: Final Specimen Source: URINE Specimen Quality: Adequate Result: No Growth 66-Fbt-178594:40 CT Brain wo contrast [address] SEE NOTES Comments: EXAM: CT BRAIN WITHOUT CONTRASTDATE: 08/19/2019 11:51 CDTINDICATION: Headache.COMPARISON: NoneTECHNIQUE: Routine axial CT images of the brain were obtained from [facility]. Reforma tted images in the sagittal and coronal plane wereincluded.DLP: 490 mGy- cmFINDINGS:Moderate atrophy of bilateral frontal and parietal lobes with resultantprominence of extra-axial spaces along bilateral frontal convexities. Chroniclacunar infarct involving anterior limb of right internal capsule.No evidence of parenchymal hypodensity to suggest recent ischemia. No evidenceof intracranial hemorrhage. Ventricles are normal in size for the given age.Prominence of the supravermian cistern is also seen. Empty sella. Thevisualized paranasal sinuses are clear. No mastoid effusion is identified. Thebony calvarium is intact.IMPRESSION: 1. Severe global brain parenchymal volume loss most prominent at bilateralfrontal and parietal lobes. MRI would be helpful for better evaluation.2. Chronic lacunar infarcts involving anterior limb of right internal capsuleand left basal ganglia.--This report was dictated by a Electrician Supervisor Substation/Fellow/Physician Roads Superintendent. Ihave personallyreviewed the images as well as the interpretation and agree with the findings.Read by: Sarabjit Chiu MD Resident/Fellow/PhysicianAssistant: Sarabjit Chiu MDDictated Date/time: 08/19/19 12:06Electronically Signed by: Gagan Pathak MD 08/18/2012:14FINAL REPORT Plan of Care Name Dates Details Planned Observations Planned Goals not documented Planned Encounters Neurology Referral Appointment; CHETAN TAPIA M.D. On: 06-Sep-2019 14:40 Appointment; DAE SARAH M.D. On: 20-Jan-2020 13:45 Appointment; PRADEEP PEARL D.O. On: 14-May-2020 14:10 Interventions Provided Labs/Procedures/Imaging* MRI Brain wo contrast [id number]; To Be Done: 23 Aug 2019 Discussion/Summary* severe global volume loss at bilateral frontal and parietal lobes will order MRI and refer to neuro for further eval. Instructions Name Dates Details Instructions not documented Encounters Appointment; FRANC ROBERTO M.D. Encounter Diagnosis: Problem not documented On: 01-Oct-2017 13:00 Appointment; JOSE CARMONA, P.ABlanco Encounter Diagnosis: Problem not documented On: 19-Oct-2017 11:15 Appointment; JOSE CARMONA, PBlancoABlanco Encounter Diagnosis: Problem not documented On: 29-Oct-2017 13:00 Appointment; JOSE CARMONA, PBlancoABlanco Encounter Diagnosis: Problem not documented On: [...] Problem not documented On: 11-Aug-2019 13:30 [facility] Encounter Diagnosis: Problem not documented On: 11-Aug-2019 14:00
--- OUTSIDE RECORDS SUMMARY | 2019-09-10 11:26 | XMS REPORT | Summary of Care ---
Author Author Bertha Alfred M.A. Unknown Address [facility] Phone Unavailable Care Team Providers Care Independent Video Producer Name Role Phone MILVIA IBRAHIM, AYLA Unavailable Unavailable ROGELIO KAM [place], ISREAL Melton Unavailable Unavailable RYANNE CORREA, PRADEEP Villegas Unavailable Unavailable SHANTELLE DIANA, JOEL Unavailable Unavailable Aspen KAM, Chetan Unavailable Unavailable CHRISTOFER Farmer, VANI Unavailable Unavailable CHRISTOFER KAM NV, VANI CORBETT Unavailable Unavailable ROGELIO Farmer, ISREAL [...] CAPS * Refills: 0 M.A. Active Nystatin 011858 UNIT/GM External Cream APPLY A THIN LAYER [...] Procedure Dates Details MRI Brain wo contrast [id number] Date: 23-Aug-2019 History of Hysterectomy Completed History of Bladder Surgery Completed History of Gallbladder surgery Completed History of Hysterectomy total Completed History of CABG Completed Immunization Name Dates Details Tdap (Adacel) on: Jun-2002 Pneumo on: Jun-2009 DT on: 23-Sep-2010 Fluzone INJ Lot #: [id number] on: 25-Apr-2013 Influenza on: Mar-2014 Zoster (Zostavax) on: 08-Mar-2014 Prevnar 13 Intramuscular Suspension Lot #: [id number] on: 21-Sep-2014 Fluzone INJ Lot #: [id number] on: 09-Feb-2015 Fluzone Quadrivalent 0.5 ML Intramuscular Suspension Prefilled Syringe Lot #: [id number] on: 20-Mar-2016 Fluzone High-Dose 0.5 ML Intramuscular Suspension Prefilled Syringe Lot #: [id number] on: 23-Apr-2017 Fluzone Quadrivalent 0.5 ML Intramuscular Suspension Lot #: [id number] on: 09-Mar-2018 Flucelvax Quadrivalent Intramuscular Suspension Lot #: [id number] on: 30-Mar-2019 Family History Name Dates Details [...] blood pressure 65 mm[Hg] Status: Comments: Location: E; Position: Sitting [...] is approximately 13% higher for peopleidentified as -Colombian. eGFR NON- 86 {ML/MIN/1.7} (Normal) Range: > [...] 7.5-12.5 ABSOLUTE NEUTROPHILS 4320 {cells/uL} (Normal) Range: 7189-7692 ABSOLUTE LYMPHOCYTES 2280 {cells/uL} (Normal) Range: 850-3900 ABSOLUTE MONOCYTES 630 {cells/uL} (Normal) Range: 200-950 ABSOLUTE EOSINOPHILS 210 {cells/uL} (Normal) Range: 15-500 ABSOLUTE BASOPHILS 60 {cells/uL} (Normal) Range: 0-200 NEUTROPHILS 57.6 % (Normal) LYMPHOCYTES 30.4 % (Normal) MONOCYTES 8.4 % (Normal) EOSINOPHILS 2.8 % (Normal) BASOPHILS 0.8 % (Normal) 2-Aay-665898:30 [[facility]] VITAMIN B12 VITAMIN B12 682 pg/ml (Normal) Range: 200-1100 9-Dfs-021194:30 [[facility]] TSH, 3RD GENERATION W/REFLEX TO FT4 Comments: REPORT COMMENT:FASTING:NO TSH, 3RD GENERATION W/REFLEX TO FT4 1.58 {MIU/L} (Normal) Range: 0.40-4.50 11-Aug-20190:00 [[facility]] CULTURE, URINE, ROUTINE CULTURE Comments: CULTURE, URINE, ROUTINE Micro Number: [id number] Test Status: Final Specimen Source: URINE Specimen Quality: Adequate Result: No Growth 24-Ody-190269:40 CT Brain wo contrast [address] SEE NOTES Comments: EXAM: CT BRAIN WITHOUT CONTRASTDATE: 08/19/2019 11:51 CDTINDICATION: Headache.COMPARISON: NoneTECHNIQUE: Routine axial CT images of the brain were obtained from [facility]. Reforma tted images in the sagittal [...] basal ganglia.--This report was dictated by a Unpaid Intern/Fellow/Physician Dicer Machine Operator. Ihave personallyreviewed the images as well as [...] documented On: 01-Oct-2017 13:00 Appointment; JOSE CARMONA PNereida Encounter Diagnosis: Problem not documented On: 19-Oct-2017 [...] Problem not documented On: 11-Aug-2019 13:30 Appointment; [facility], [place] Encounter Diagnosis: Problem not documented On: 11-Aug-2019 14:00
--- OUTSIDE RECORDS SUMMARY | 2019-09-10 11:26 | XMS REPORT | Summary of Care ---
Author Author Taylor Rae Unknown Address [facility] Phone Unavailable Care Team Providers Care Handbell Choir Director Name Role Phone AYLA STEEL APRN Unavailable Unavailable ROGELIO KAM [place], ISRELA Melton Unavailable Unavailable RYANNE CORREA, PRADEEP Villegas Unavailable Unavailable SHANTELLE DIANA, JOEL Unavailable Unavailable Aspen KAM, Chetan Unavailable Unavailable CHRISTOFER Farmer, VANI Unavailable Unavailable CHRISTOFER KAM [place], VANI CORBETT Unavailable Unavailable ROGELIO Farmer, ISREAL Unavailable Unavailable Rodney KAM, Dae Unavailable Unavailable KRISTINE MATTHEWS, JOSE Unavailable Unavailable MILVIA DIANA, AYLA Unavailable Unavailable CARMELO KAM, ARTUR Aaron Unavailable Unavailable Unavailable Unavailable Functional Status Name Dates Details Functional status health issues are not documented Status: Name Dates Details Cognitive status health issues are not documented Status: Problems Name Dates Details Screening for thyroid disorder (V77.0, Z13.29) Status: Active Acquired hammer toe of left foot (735.4, M20.42) Status: Active Jaw pain (784.92, R68.84) Status: Active Ear pain (388.70, H92.09) Status: Active Osteoporosis (733.00, M81.0) Status: Active Dysuria (788.1, R30.0) Status: Active Iron deficiency (280.9, E61.1) Status: Active Postmenopausal hormone replacement therapy (V07.4, Z79.890) Status: Active Abnormal AST and ALT (790.4, R74.8) Status: Active Influenza vaccine needed (V04.81, Z23) Status: Active Sore throat (462, J02.9) Status: Active Polyarthropathy, 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, 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 Abnormal antibody titer (795.79, R76.0) Status: Active Limb pain (729.5, M79.609) Status: Active Urinary symptom or sign (788.99, R39.9) Status: Active Hematuria, microscopic (599.72, R31.29) Status: Active Former smoker (V15.82, Z87.891) Status: Active Tachycardia (785.0, R00.0) Status: Active Heart palpitations (785.1, R00.2) Status: Active Essential hypertension (401.9, I10) Status: Active Seasonal allergic rhinitis (477.9, J30.2) Status: Active Acute pain of right knee (719.46, M25.561) Status: Active Acute non-recurrent maxillary sinusitis (461.0, J01.00) Status: Active Normal blood pressure Status: Active Productive cough (786.2, R05) Status: Active Acute bronchitis (466.0, J20.9) Status: Active Acute frontal sinusitis (461.1, J01.10) Status: Active Flu vaccine need (V04.81, Z23) Status: Active Dysfunction of left eustachian tube (381.81, H69.82) Status: Active Allergic rhinitis (477.9, J30.9) Status: Active History of dry mouth (V12.79, Z87.19) Status: Active Pain in both feet (729.5, M79.671) Status: Active Anxiety (300.00, F41.9) Status: Active Osteopenia (733.90, M85.80) Status: Active Other insomnia (780.52, G47.09) Status: Active Sinusitis (473.9, J32.9) Status: Active Depression screening (V79.0, Z13.31) Status: Active Xeroderma (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.39, Q80.9) Status: Active Nevus, non-neoplastic (448.1, I78.1) Status: Active Acute pain in left eye (379.91, H57.12) Status: Active Advance directive discussed with patient (V65.49, Z71.89) Status: Active Visit for screening mammogram (V76.12, Z12.31) Status: Active Acute vaginitis (616.10, N76.0) Status: Active Other fatigue (780.79, R53.83) Status: Active Need for hepatitis C screening test (V73.89, Z11.59) Status: Active Knee pain, bilateral (719.46, M25.561) Status: Active 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82, Z23) Status: Active Chronic cough (786.2, R05) Status: Active Abdominal pain, LLQ (left lower quadrant) (789.04, R10.32) Status: Active Candidiasis, cutaneous (112.3, B37.2) Status: Active Upper respiratory infection (465.9, J06.9) Status: Active Nasal polyp (471.9, J33.9) Status: Active Plantar fasciitis (728.71, M72.2) Status: Active Eczema intertrigo (695.89, L30.4) Status: Active Abrasion of ear (910.0, S00.419A) Status: Active Obesity (BMI 30.0-34.9) (278.00, E66.9) Status: Active Hyperlipidemia (272.4, E78.5) Status: Active Gastric reflux syndrome (530.81, K21.9) Status: Active Elevated WBCs (288.60, D72.829) Status: Active Cat bite (879.8, W55.01XA) Status: Active Estrogen deficiency (256.39, E28.39) Status: Active Dry cough (786.2, R05) Status: Active Abnormal CT of brain (793.0, R90.89) Status: Active UTI (urinary tract infection) (599.0, N39.0) Status: Active Insomnia (780.52, G47.00) Status: Active Candidiasis of breast (112.89, B37.89) Status: Active New onset of headaches (784.0, R51) Status: Active Diffuse abdominal pain (789.00, R10.84) Status: Active Dizziness (780.4, R42) Status: Active Fatigue (780.79, R53.83) Status: Active Shortness of breath (786.05, R06.02) Status: Active Encounter for screening mammogram for malignant neoplasm of breast (V76.12, Z12.31) Status: Active Allergic rhinitis due to pollen (477.0, J30.1) Status: Active Abnormal urine finding (791.9, R82.90) Status: Active Abnormal finding on thyroid function test (794.5, R94.6) Status: Active Knee pain, left (719.46, M25.562) Status: Active Bunion, left (727.1, M21.612) Status: Active Abscess of leg (682.6, L02.419) Status: Active Acute bronchitis due to infection (466.0, J20.8) Status: Active Dry eyes, bilateral (375.15, H04.123) Status: Active Asthma (493.90, J45.909) Status: Active Depressive disorder (311, F32.9) Status: Active H. pylori infection (041.86, A04.8) Status: Active Shakiness (781.0, R25.1) Status: Active Encounter to discuss test results (V65.49, Z71.2) Status: Active 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, R31.1) Status: Active Decreased vision of left eye (369.8, H54.62) Status: Active 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, F34.1) Status: Active Dysphagia (787.20, R13.10) Status: Active Screen for colon cancer (V76.51, Z12.11) Status: Active GERD (gastroesophageal reflux disease) (530.81, K21.9) Status: Active GERD (gastroesophageal reflux disease) (530.81, K21.9) Status: Active History of colon polyps (V12.72, Z86.010) Status: Active Constipation (564.00, K59.00) Status: Active H pylori ulcer (533.90, K27.9) Status: Active Abdominal pain (789.00, R10.9) Status: Active Skin lesion (709.9, L98.9) Status: Active Hypertrophy of nasal turbinates (478.0, J34.3) Status: Active 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, M35.9) Status: Active Hematuria (599.70, R31.9) Status: Active Asymptomatic microscopic hematuria (599.72, R31.21) Status: Active Vaginal atrophy (627.3, N95.2) Status: Active Medications Name Dates Details Atorvastatin [...] CAPS * Refills: 0 M.A. Active Nystatin 134235 UNIT/GM External Cream APPLY A THIN LAYER [...] Procedure Dates Details MRI Brain wo contrast 70503 Date: 23-Aug-2019 History of Hysterectomy Completed History of Bladder Surgery Completed History of Hysterectomy total Completed History of Gallbladder surgery Completed History of CABG Completed Immunization Name Dates Details Tdap (Adacel) on: Jun-2002 Pneumo on: Jun-2009 DT on: 23-Sep-2010 Fluzone INJ Lot #: [id number] on: 25-Apr-2013 Influenza on: Mar-2014 Zoster (Zostavax) on: 08-Mar-2014 Prevnar 13 Intramuscular Suspension Lot #: [id number] on: 21-Sep-2014 Fluzone INJ Lot #: [id number] on: 09-Feb-2015 Fluzone Quadrivalent 0.5 ML Intramuscular Suspension Prefilled Syringe Lot #: [id number] on: 20-Mar-2016 Fluzone High-Dose 0.5 ML Intramuscular Suspension Prefilled Syringe Lot #: [id number] on: 23-Apr-2017 Fluzone Quadrivalent 0.5 ML Intramuscular Suspension Lot #: [id number] on: 09-Mar-2018 Flucelvax Quadrivalent Intramuscular Suspension Lot #: [id number] on: 30-Mar-2019 Family History Name Dates Details [...] is approximately 13% higher for peopleidentified as -Mozambican. eGFR NON- 86 {ML/MIN/1.7} (Normal) Range: > [...] 7.5-12.5 ABSOLUTE NEUTROPHILS 4320 {cells/uL} (Normal) Range: 3316-8394 ABSOLUTE LYMPHOCYTES 2280 {cells/uL} (Normal) Range: 850-3900 ABSOLUTE MONOCYTES 630 {cells/uL} (Normal) Range: 200-950 ABSOLUTE EOSINOPHILS 210 {cells/uL} (Normal) Range: 15-500 ABSOLUTE BASOPHILS 60 {cells/uL} (Normal) Range: 0-200 NEUTROPHILS 57.6 % (Normal) LYMPHOCYTES 30.4 % (Normal) MONOCYTES 8.4 % (Normal) EOSINOPHILS 2.8 % (Normal) BASOPHILS 0.8 % (Normal) 6-Rwb-467560:30 [[facility]] VITAMIN B12 VITAMIN B12 682 pg/ml (Normal) Range: 200-1100 6-Ylg-482249:30 [[facility]] TSH, 3RD GENERATION W/REFLEX TO FT4 Comments: REPORT COMMENT:FASTING:NO TSH, 3RD GENERATION W/REFLEX TO FT4 1.58 {MIU/L} (Normal) Range: 0.40-4.50 11-Aug-20190:00 [[facility], [facility]] CULTURE, URINE, ROUTINE CULTURE Comments: CULTURE, URINE, ROUTINE Micro Number: [id number] Test Status: Final Specimen Source: URINE Specimen Quality: Adequate Result: No Growth [id number]-Nqu-[id number] CT Brain wo contrast [address] SEE NOTES Comments: EXAM: CT BRAIN WITHOUT CONTRASTDATE: 08/19/2019 11:51 CDTINDICATION: Headache.COMPARISON: NoneTECHNIQUE: Routine axial CT images of the brain were obtained from [facility]. Reforma tted images in the sagittal [...] basal ganglia.--This report was dictated by a Vp Product Management/Fellow/Physician Photostat Operator Helper. Ihave personallyreviewed the images as well as [...] documented On: 19-Oct-2017 11:15 Appointment; JOSE CARMONA PNereida Encounter Diagnosis: Problem not documented On: 29-Oct-2017 13:00 Appointment; JOSE CARMONA PNereida Encounter Diagnosis: Problem not documented On: 15-Dec-2017 [...] Problem not documented On: 18-Mar-2018 10:00 [facility] Encounter Diagnosis: Problem not documented [...] not documented On: 11-Aug-2019 13:30 [facility] En[facility] Diagnosis: Problem not documented On: 11-Aug-2019 14:00
--- OUTSIDE RECORDS SUMMARY | 2019-09-10 11:27 | XMS REPORT | Summary of Care ---
Author Author [facility] Address [address] [place] [address] Phone Unavailable Care Team Providers Care Risk Mgr Name Role Phone AYLA STEEL APRN Unavailable Unavailable ROGELIO KAM [place], ISREAL Melton Unavailable Unavailable RYANNE CORREA, PRADEEP Villgeas Unavailable Unavailable SHANTELLE DIANA, JOEL Unavailable Unavailable Aspen KAM, Chetan Unavailable Unavailable CHRISTOFER Farmer, VANI Unavailable Unavailable CHRISTOFER KAM [place], VANI CORBETT Unavailable Unavailable ROGELIO Farmer, ISREAL Unavailable Unavailable Rodney KAM, Dae Unavailable Unavailable KRISTINE MATTHEWS, JOSE Unavailable Unavailable IMLVIA DIANA, AYLA Unavailable Unavailable CARMELO KAM, ARTUR [...] TABS one daily * Refills: 0 Active traZODone HCl - 50 MG Oral Tablet TAKE 1 TABLET BY MOUTH AT BEDTIME NEEDED FOR SLEEP * Quantity: 90 Refills: 0 AYLA STEEL APRN * Start : 07-Apr-2017 Active Vitamin D3 TABS * Refills: 0 Active Probiotic CAPS * Refills: 0 Active Nystatin 140452 UNIT/GM External Cream APPLY A THIN LAYER [...] Start : 20-Jan-2017 Active 6.7 GM Inhaler Magnesium 400 MG Oral Tablet * Refills: [...] Procedure Dates Details MRI Brain wo contrast [id number] Date: 23-Aug-2019 History of Hysterectomy Completed History of Bladder Surgery Completed History of Hysterectomy total Completed History of Gallbladder surgery Completed History of CABG Completed Immunization Name Dates Details Tdap (Adacel) on: Jun-2002 Pneumo on: Jun-2009 DT on: 23-Sep-2010 Fluzone INJ Lot #: [id number] on: 25-Apr-2013 Influenza on: Mar-2014 Zoster (Zostavax) on: 08-Mar-2014 Prevnar 13 Intramuscular Suspension Lot #: [id number] on: 21-Sep-2014 Fluzone INJ Lot #: [id number] on: 09-Feb-2015 Fluzone Quadrivalent 0.5 ML Intramuscular Suspension Prefilled Syringe Lot #: [id number] on: 20-Mar-2016 Fluzone High-Dose 0.5 ML Intramuscular Suspension Prefilled Syringe Lot #: [id number] on: 23-Apr-2017 Fluzone Quadrivalent 0.5 ML Intramuscular Suspension Lot #: [id number] on: 09-Mar-2018 Flucelvax Quadrivalent Intramuscular Suspension Lot #: [id number] on: 30-Mar-2019 Family History Name Dates Details [...] is approximately 13% higher for peopleidentified as -Tunisian. eGFR NON- 86 {ML/MIN/1.7} (Normal) Range: > [...] 7.5-12.5 ABSOLUTE NEUTROPHILS 4320 {cells/uL} (Normal) Range: 3480-6253 ABSOLUTE LYMPHOCYTES 2280 {cells/uL} (Normal) Range: 850-3900 ABSOLUTE MONOCYTES 630 {cells/uL} (Normal) Range: 200-950 ABSOLUTE EOSINOPHILS 210 {cells/uL} (Normal) Range: 15-500 ABSOLUTE BASOPHILS 60 {cells/uL} (Normal) Range: 0-200 NEUTROPHILS 57.6 % (Normal) LYMPHOCYTES 30.4 % (Normal) MONOCYTES 8.4 % (Normal) EOSINOPHILS 2.8 % (Normal) BASOPHILS 0.8 % (Normal) 1-Fqn-311582:30 [[facility]] VITAMIN B12 VITAMIN B12 682 pg/ml (Normal) Range: 200-1100 3-Fnf-790292:30 [[facility]] TSH, 3RD GENERATION W/REFLEX TO FT4 Comments: REPORT COMMENT:FASTING:NO TSH, 3RD GENERATION W/REFLEX TO FT4 1.58 {MIU/L} (Normal) Range: 0.40-4.50 11-Aug-20190:00 [[facility]] CULTURE, URINE, ROUTINE CULTURE Comments: CULTURE, URINE, ROUTINE Micro Number: [id number] Test Status: Final Specimen Source: URINE Specimen Quality: Adequate Result: No Growth 33-Xjz-307683:40 CT Brain wo contrast [id number] SEE NOTES Comments: EXAM: CT BRAIN WITHOUT CONTRASTDATE: 08/19/2019 11:51 CDTINDICATION: Headache.COMPARISON: NoneTECHNIQUE: Routine axial CT images of the brain were obtained from [facility]. Reforma tted images in the sagittal [...] basal ganglia.--This report was dictated by a Electrical Sign Wirer Helper/Fellow/Physician Vineyard Supervisor. Ihave personallyreviewed the images as well as [...] Problem not documented On: 16-Mar-2018 11:00 [facility] Encounter Diagnosis: Problem not documented On: 18-Mar-2018 10:00 Appointment; [facility] Encounter Diagnosis: Problem not documented On: 18-Mar-2018 11:00 Appointment; JOSE CARMONA P.ABlanco Encounter Diagnosis: Problem not documented On: 17-Jun-2018 11:00 Appointment; AYLA STEEL APRN Encounter Diagnosis: Problem not documented On: 29-Jun-2018 14:15 Appointment; JOEL PEPPER APRN Encounter Diagnosis: Problem not documented On: 17-Jul-2018 11:15 Appointment; AYLA SETEL APRN Encounter Diagnosis: Problem not documented On: [...] Problem not documented On: 11-Aug-2019 13:30 Appointment; [facility] Encounter Diagnosis: Problem not documented On: 11-Aug-2019 14:00
--- OUTSIDE RECORDS SUMMARY | 2019-09-10 11:27 | XMS REPORT | Summary of Care ---
Author Author Selena Zamora LVN Unknown Address [facility] Phone Unavailable Care Team Providers Care Rolloff Driver Name Role Phone MILVIA IBRAHIM, AYLA Unavailable Unavailable ROGELIO KAM [place], ISREAL Melton Unavailable Unavailable RYANNE CORREA, PRADEEP Villegas Unavailable Unavailable SHANTELLE DIANA, JOEL Unavailable Unavailable Aspen KAM, Chetan Unavailable Unavailable CHRISTOFER Farmer, VANI Unavailable Unavailable CHRISTOFER KAM [place], VANI CORBETT Unavailable Unavailable ROGELIO Farmer, ISREAL [...] Probiotic CAPS * Refills: 0 Active Nystatin 466953 UNIT/GM External Cream APPLY A THIN LAYER [...] Procedure Dates Details MRI Brain wo contrast 60019 Date: 23-Aug-2019 History of Hysterectomy Completed History of Bladder Surgery Completed History of Hysterectomy total Completed History of Gallbladder surgery Completed History of CABG Completed Immunization Name Dates Details Tdap (Adacel) on: Jun-2002 Pneumo on: Jun-2009 DT on: 23-Sep-2010 Fluzone INJ Lot #: [id number] on: 25-Apr-2013 Influenza on: Mar-2014 Zoster (Zostavax) on: 08-Mar-2014 Prevnar 13 Intramuscular Suspension Lot #: [id number] on: 21-Sep-2014 Fluzone INJ Lot #: [id number] on: 09-Feb-2015 Fluzone Quadrivalent 0.5 ML Intramuscular Suspension Prefilled Syringe Lot #: [id number] on: 20-Mar-2016 Fluzone High-Dose 0.5 ML Intramuscular Suspension Prefilled Syringe Lot #: [id number] on: 23-Apr-2017 Fluzone Quadrivalent 0.5 ML Intramuscular Suspension Lot #: [id number] on: 09-Mar-2018 Flucelvax Quadrivalent Intramuscular Suspension Lot #: [id number] on: 30-Mar-2019 Family History Name Dates Details [...] is approximately 13% higher for peopleidentified as -Egyptian. eGFR NON- 86 {ML/MIN/1.7} (Normal) Range: > [...] 7.5-12.5 ABSOLUTE NEUTROPHILS 4320 {cells/uL} (Normal) Range: 8683-5979 ABSOLUTE LYMPHOCYTES 2280 {cells/uL} (Normal) Range: 850-3900 ABSOLUTE MONOCYTES 630 {cells/uL} (Normal) Range: 200-950 ABSOLUTE EOSINOPHILS 210 {cells/uL} (Normal) Range: 15-500 ABSOLUTE BASOPHILS 60 {cells/uL} (Normal) Range: 0-200 NEUTROPHILS 57.6 % (Normal) LYMPHOCYTES 30.4 % (Normal) MONOCYTES 8.4 % (Normal) EOSINOPHILS 2.8 % (Normal) BASOPHILS 0.8 % (Normal) 7-Cqz-222158:30 [[facility]] VITAMIN B12 VITAMIN B12 682 pg/ml (Normal) Range: 200-1100 7-Dic-379756:30 [[facility]] TSH, 3RD GENERATION W/REFLEX TO FT4 Comments: REPORT COMMENT:FASTING:NO TSH, 3RD GENERATION W/REFLEX TO FT4 1.58 {MIU/L} (Normal) Range: 0.40-4.50 11-Aug-20190:00 [[facility]] CULTURE, URINE, ROUTINE CULTURE Comments: CULTURE, URINE, ROUTINE Micro Number: [id number] Test Status: Final Specimen Source: URINE Specimen Quality: Adequate Result: No Growth 59-Zvx-[id number]:40 CT Brain wo contrast [id number] SEE NOTES Comments: EXAM: CT BRAIN WITHOUT CONTRASTDATE: 08/19/2019 11:51 CDTINDICATION: Headache.COMPARISON: NoneTECHNIQUE: Routine axial CT images of the brain were obtained from [facility]. Reforma tted images in the sagittal and [...] basal ganglia.--This report was dictated by a Burlap Worker/Fellow/Physician Executive Secretary. Ihave personallyreviewed the images as well as [...] On: 14-May-2020 14:10 Interventions Provided Medication Changes* traZODone HCl - 50 MG Oral Tablet - Renew Instructions Name [...] Problem not documented On: 18-Mar-2018 10:00 [facility] En[facility] Diagnosis: Problem not documented [...] not documented On: 11-Aug-2019 13:30 [facility] Diagnosis: Problem not documented On: 11-Aug-2019 14:00
--- OUTSIDE RECORDS SUMMARY | 2019-09-10 11:27 | XMS REPORT | Summary of Care ---
Author Author Sera Fleming Organization Unknown Address Unknown Phone Unavailable Care Team Providers Care Assistant Account Executive Name Role Phone Sera Fleming Unavailable Unavailable MILVIA IBRAHIM, AYLA Unavailable Unavailable ROGELIO KAM [place], ISREAL Melton [...] Probiotic CAPS * Refills: 0 Active Nystatin 587997 UNIT/GM External Cream APPLY A THIN LAYER [...] Procedure Dates Details MRI Brain wo contrast 47683 Date: 23-Aug-2019 History of Hysterectomy Completed History of Bladder Surgery Completed History of Hysterectomy total Completed History of Gallbladder surgery Completed History of CABG Completed Immunization Name Dates Details Tdap (Adacel) on: Jun-2002 Pneumo on: Jun-2009 DT on: 23-Sep-2010 Fluzone INJ Lot #: [id number] on: 25-Apr-2013 Influenza on: Mar-2014 Zoster (Zostavax) on: 08-Mar-2014 Prevnar 13 Intramuscular Suspension Lot #: [id number] on: 21-Sep-2014 Fluzone INJ Lot #: [id number] on: 09-Feb-2015 Fluzone Quadrivalent 0.5 ML Intramuscular Suspension Prefilled Syringe Lot #: [id number] on: 20-Mar-2016 Fluzone High-Dose 0.5 ML Intramuscular Suspension Prefilled Syringe Lot #: [id number] on: 23-Apr-2017 Fluzone Quadrivalent 0.5 ML Intramuscular Suspension Lot #: [id number] on: 09-Mar-2018 Flucelvax Quadrivalent Intramuscular Suspension Lot #: [id number] on: 30-Mar-2019 Family History Name Dates Details [...] is approximately 13% higher for peopleidentified as -Kittitian. eGFR NON- 86 {ML/MIN/1.7} (Normal) Range: > [...] 7.5-12.5 ABSOLUTE NEUTROPHILS 4320 {cells/uL} (Normal) Range: 0214-1940 ABSOLUTE LYMPHOCYTES 2280 {cells/uL} (Normal) Range: 850-3900 ABSOLUTE MONOCYTES 630 {cells/uL} (Normal) Range: 200-950 ABSOLUTE EOSINOPHILS 210 {cells/uL} (Normal) Range: 15-500 ABSOLUTE BASOPHILS 60 {cells/uL} (Normal) Range: 0-200 NEUTROPHILS 57.6 % (Normal) LYMPHOCYTES 30.4 % (Normal) MONOCYTES 8.4 % (Normal) EOSINOPHILS 2.8 % (Normal) BASOPHILS 0.8 % (Normal) 3-Thi-399080:30 [[facility]] VITAMIN B12 VITAMIN B12 682 pg/ml (Normal) Range: 200-1100 8-Syv-945796:30 [[facility]] TSH, 3RD GENERATION W/REFLEX TO FT4 Comments: REPORT COMMENT:FASTING:NO TSH, 3RD GENERATION W/REFLEX TO FT4 1.58 {MIU/L} (Normal) Range: 0.40-4.50 11-Aug-20190:00 [[facility]] CULTURE, URINE, ROUTINE CULTURE Comments: CULTURE, URINE, ROUTINE Micro Number: [id number] Test Status: Final Specimen Source: URINE Specimen Quality: Adequate Result: No Growth [id number]-Bps-[id number]:40 CT Brain wo contrast [address] SEE NOTES Comments: EXAM: CT BRAIN WITHOUT CONTRASTDATE: 08/19/2019 11:51 CDTINDICATION: Headache.COMPARISON: NoneTECHNIQUE: Routine axial CT images of the brain were obtained from [facility]. Reforma tted images in the sagittal [...] basal ganglia.--This report was dictated by a Long Term Care Administrator/Fellow/Physician Paper Cone Machine Tender. Ihave personallyreviewed the images as well as [...] Problem not documented On: 11-Aug-2019 13:30 [facility] En[facility] Diagnosis: Problem not documented On: 11-Aug-2019 14:00
--- OUTSIDE RECORDS SUMMARY | 2019-09-10 11:27 | XMS REPORT | Summary of Care ---
Author Author [facility] Address [address] [place] [address] Phone Unavailable Care Team Providers Care Taximeter Repairer Name Role Phone AYLA STEEL APRN Unavailable Unavailable ROGELIO KAM [place], ISREAL Melton Unavailable Unavailable RYANNE CORREA, PRADEEP Villegas Unavailable Unavailable SHANTELLE DIANA, JOEL Unavailable Unavailable Aspen KAM, Chetan Unavailable Unavailable CHRISTOFER Farmer, VANI Unavailable Unavailable CHRISTOFER KAM [place], VANI CORBETT Unavailable Unavailable ROGELIO Farmer, ISREAL [...] Probiotic CAPS * Refills: 0 Active Nystatin 532638 UNIT/GM External Cream APPLY A THIN LAYER [...] Procedure Dates Details MRI Brain wo contrast 60383 Date: 23-Aug-2019 History of Hysterectomy Completed History of Bladder Surgery Completed History of Hysterectomy total Completed History of Gallbladder surgery Completed History of CABG Completed Immunization Name Dates Details Tdap (Adacel) on: Jun-2002 Pneumo on: Jun-2009 DT on: 23-Sep-2010 Fluzone INJ Lot #: [id number] on: 25-Apr-2013 Influenza on: Mar-2014 Zoster (Zostavax) on: 08-Mar-2014 Prevnar 13 Intramuscular Suspension Lot #: [id number] on: 21-Sep-2014 Fluzone INJ Lot #: [id number] on: 09-Feb-2015 Fluzone Quadrivalent 0.5 ML Intramuscular Suspension Prefilled Syringe Lot #: [id number] on: 20-Mar-2016 Fluzone High-Dose 0.5 ML Intramuscular Suspension Prefilled Syringe Lot #: [id number] on: 23-Apr-2017 Fluzone Quadrivalent 0.5 ML Intramuscular Suspension Lot #: [id number] on: 09-Mar-2018 Flucelvax Quadrivalent Intramuscular Suspension Lot #: [id number] on: 30-Mar-2019 Family History Name Dates Details [...] is approximately 13% higher for peopleidentified as -Eritrean. eGFR NON- 86 {ML/MIN/1.7} (Normal) Range: > [...] 7.5-12.5 ABSOLUTE NEUTROPHILS 4320 {cells/uL} (Normal) Range: 2072-1347 ABSOLUTE LYMPHOCYTES 2280 {cells/uL} (Normal) Range: 850-3900 ABSOLUTE MONOCYTES 630 {cells/uL} (Normal) Range: 200-950 ABSOLUTE EOSINOPHILS 210 {cells/uL} (Normal) Range: 15-500 ABSOLUTE BASOPHILS 60 {cells/uL} (Normal) Range: 0-200 NEUTROPHILS 57.6 % (Normal) LYMPHOCYTES 30.4 % (Normal) MONOCYTES 8.4 % (Normal) EOSINOPHILS 2.8 % (Normal) BASOPHILS 0.8 % (Normal) 8-Fpp-052156:30 [[facility]] VITAMIN B12 VITAMIN B12 682 pg/ml (Normal) Range: 200-1100 3-Zcw-949419:30 [[facility]] TSH, 3RD GENERATION W/REFLEX TO FT4 Comments: REPORT COMMENT:FASTING:NO TSH, 3RD GENERATION W/REFLEX TO FT4 1.58 {MIU/L} (Normal) Range: 0.40-4.50 11-Aug-20190:00 [[facility]] CULTURE, URINE, ROUTINE CULTURE Comments: CULTURE, URINE, ROUTINE Micro Number: [id number] Test Status: Final Specimen Source: URINE Specimen Quality: Adequate Result: No Growth 84-Nny-144847:40 CT Brain wo contrast [address] SEE NOTES Comments: EXAM: CT BRAIN WITHOUT CONTRASTDATE: 08/19/2019 11:51 CDTINDICATION: Headache.COMPARISON: NoneTECHNIQUE: Routine axial CT images of the brain were obtained from [facility]. Reforma tted images in the [...] basal ganglia.--This report was dictated by a Yeast Stacker/Fellow/Physician Director Systems. Ihave personallyreviewed the images as well as [...] Problem not documented On: 16-Mar-2018 11:00 [facility] Encounter Diagnosis: Problem not documented [...]
--- OUTSIDE RECORDS SUMMARY | 2019-09-10 11:28 | XMS REPORT | Summary of Care ---
Author Author [facility] Address [address] [place] [address] Phone Unavailable Care Team Providers Care Prefitter Name Role Phone AYLA STEEL APRN Unavailable Unavailable ROGELIO KAM [place], ISREAL Melton Unavailable Unavailable RYANNE CORREA, PRADEEP Villegas Unavailable Unavailable SHANTELLE DIANA, JOEL Unavailable Unavailable Aspen KAM, Chetan Unavailable Unavailable CHRISTOFER Farmer, VANI Unavailable Unavailable CHRISTOFER KAM [place], VANI CORBETT Unavailable Unavailable ROGELIO Farmer, ISREAL [...] CT of brain (793.0, R90.89) Status: Active Encounter for vitamin deficiency screening (V77.99, Z13.21) Status: Active Medications Name Dates Details Atorvastatin [...] Probiotic CAPS * Refills: 0 Active Nystatin 196241 UNIT/GM External Cream APPLY A THIN LAYER [...] Procedure Dates Details MRI Brain wo contrast 36820 Date: 23-Aug-2019 History of Hysterectomy Completed History of Bladder Surgery Completed History of Gallbladder surgery Completed History of Hysterectomy total Completed History of CABG Completed Immunization Name Dates Details Tdap (Adacel) on: Jun-2002 Pneumo on: Jun-2009 DT on: 23-Sep-2010 Fluzone INJ Lot #: [id number] on: 25-Apr-2013 Influenza on: Mar-2014 Zoster (Zostavax) on: 08-Mar-2014 Prevnar 13 Intramuscular Suspension Lot #: [id number] on: 21-Sep-2014 Fluzone INJ Lot #: [id number] on: 09-Feb-2015 Fluzone Quadrivalent 0.5 ML Intramuscular Suspension Prefilled Syringe Lot #: [id number] on: 20-Mar-2016 Fluzone High-Dose 0.5 ML Intramuscular Suspension Prefilled Syringe Lot #: [id number] on: 23-Apr-2017 Fluzone Quadrivalent 0.5 ML Intramuscular Suspension Lot #: [id number] on: 09-Mar-2018 Flucelvax Quadrivalent Intramuscular Suspension Lot #: [id number] on: 30-Mar-2019 Family History Name Dates Details [...] 65yrs) or more drinks in a day? Results Date Description Value Details :35 [O] [...] is approximately 13% higher for peopleidentified as -Moroccan. eGFR NON- 86 {ML/MIN/1.7} (Normal) Range: > [...] 7.5-12.5 ABSOLUTE NEUTROPHILS 4320 {cells/uL} (Normal) Range: 7884-2600 ABSOLUTE LYMPHOCYTES 2280 {cells/uL} (Normal) Range: 850-3900 ABSOLUTE MONOCYTES 630 {cells/uL} (Normal) Range: 200-950 ABSOLUTE EOSINOPHILS 210 {cells/uL} (Normal) Range: 15-500 ABSOLUTE BASOPHILS 60 {cells/uL} (Normal) Range: 0-200 NEUTROPHILS 57.6 % (Normal) LYMPHOCYTES 30.4 % (Normal) MONOCYTES 8.4 % (Normal) EOSINOPHILS 2.8 % (Normal) BASOPHILS 0.8 % (Normal) 0-Jif-918794:30 [[facility]] VITAMIN B12 VITAMIN B12 682 pg/ml (Normal) Range: 200-1100 5-Kui-192276:30 [[facility]] TSH, 3RD GENERATION W/REFLEX TO FT4 Comments: REPORT COMMENT:FASTING:NO TSH, 3RD GENERATION W/REFLEX TO FT4 1.58 {MIU/L} (Normal) Range: 0.40-4.50 :00 [[facility]] CULTURE, URINE, ROUTINE CULTURE Comments: CULTURE, URINE, ROUTINE Micro Number: [id number] Test Status: Final Specimen Source: URINE Specimen Quality: Adequate Result: No Growth 41-Aon-185487:40 CT Brain wo contrast [address] SEE NOTES Comments: EXAM: CT BRAIN WITHOUT CONTRASTDATE: 08/19/2019 11:51 CDTINDICATION: Headache.COMPARISON: NoneTECHNIQUE: Routine axial CT images of the brain were obtained from [facility]. Reforma tted images in the sagittal and [...] basal ganglia.--This report was dictated by a Human Services Professional/Fellow/Physician Assistant Family Teacher. Reina personallyreviewed the images as well as the [...] documented On: 19-Oct-2017 11:15 Appointment; JOSE CARMONA P.ABlnaco Encounter Diagnosis: Problem not documented On: 29-Oct-2017 [...] Problem not documented On: 11-Aug-2019 13:30 [facility] Encounter Diagnosis: Problem not documented On: 11-Aug-2019 14:00
--- OUTSIDE RECORDS SUMMARY | 2019-09-10 11:28 | XMS REPORT | Summary of Care ---
Author Author Selena Zamora LVN Unknown Address [facility] Phone Unavailable Care Team Providers Care Orthopedic Rn Name Role Phone MILVIA IBRAHIM, AYLA Unavailable Unavailable Selena Zamora LVN Unavailable Unavailable ROGELIO KAM [place], ISREAL Melton Unavailable Unavailable RYANNE CORREA, PRADEEP [...] Asymptomatic microscopic hematuria (599.72, R31.21) Status: Active Asthma (493.90, J45.909) Status: Active [...] Status: Active Tachycardia (785.0, R00.0) Status: Active Fatigue (780.79, R53.83) Status: Active Shakiness (781.0, R25.1) Status: Active New onset of headaches (784.0, [...] Quantity: 1 Refills: 2 AYLA STEEL APRN Start : 20-Jan-2017 Active 6.7 GM Inhaler traZODone HCl - 50 MG Oral Tablet TAKE 1 TABLET BY MOUTH AT BEDTIME NEEDED FOR SLEEP * Quantity: 90 Refills: 0 AYLA STEEL APRN * Start : 07-Apr-2017 Active Vitamin D3 TABS * Refills: 0 Active Probiotic CAPS * Refills: 0 Active Nystatin 052636 UNIT/GM External Cream APPLY A THIN LAYER [...] Procedure Dates Details MRI Brain wo contrast 14603 Date: 23-Aug-2019 History of Hysterectomy Completed History of Bladder Surgery Completed History of Gallbladder surgery Completed History of Hysterectomy total Completed History of CABG Completed Immunization Name Dates Details Tdap (Adacel) on: Jun-2002 Pneumo on: Jun-2009 DT on: 23-Sep-2010 Fluzone INJ Lot #: [id number] on: 25-Apr-2013 Influenza on: Mar-2014 Zoster (Zostavax) on: 08-Mar-2014 Prevnar 13 Intramuscular Suspension Lot #: [id number] on: 21-Sep-2014 Fluzone INJ Lot #: [id number] on: 09-Feb-2015 Fluzone Quadrivalent 0.5 ML Intramuscular Suspension Prefilled Syringe Lot #: [id number] on: 20-Mar-2016 Fluzone High-Dose 0.5 ML Intramuscular Suspension Prefilled Syringe Lot #: [id number] on: 23-Apr-2017 Fluzone Quadrivalent 0.5 ML Intramuscular Suspension Lot #: [id number] on: 09-Mar-2018 Flucelvax Quadrivalent Intramuscular Suspension Lot #: [id number] on: 30-Mar-2019 Family History Name Dates Details [...] is approximately 13% higher for peopleidentified as -[place] Islander. eGFR NON- 86 {ML/MIN/1.7} (Normal) Range: > [...] 7.5-12.5 ABSOLUTE NEUTROPHILS 4320 {cells/uL} (Normal) Range: 4560-9308 ABSOLUTE LYMPHOCYTES 2280 {cells/uL} (Normal) Range: 850-3900 ABSOLUTE MONOCYTES 630 {cells/uL} (Normal) Range: 200-950 ABSOLUTE EOSINOPHILS 210 {cells/uL} (Normal) Range: 15-500 ABSOLUTE BASOPHILS 60 {cells/uL} (Normal) Range: 0-200 NEUTROPHILS 57.6 % (Normal) LYMPHOCYTES 30.4 % (Normal) MONOCYTES 8.4 % (Normal) EOSINOPHILS 2.8 % (Normal) BASOPHILS 0.8 % (Normal) 5-Fgc-650322:30 [[facility]] VITAMIN B12 VITAMIN B12 682 pg/ml (Normal) Range: 200-1100 7-Dxb-189645:30 [[facility]] TSH, 3RD GENERATION W/REFLEX TO FT4 Comments: REPORT COMMENT:FASTING:NO TSH, 3RD GENERATION W/REFLEX TO FT4 1.58 {MIU/L} (Normal) Range: 0.40-4.50 11-Aug-20190:00 [[facility]] CULTURE, URINE, ROUTINE CULTURE Comments: CULTURE, URINE, ROUTINE Micro Number: [id number] Test Status: Final Specimen Source: URINE Specimen Quality: Adequate Result: No Growth 01-Bxd-182588:40 CT Brain wo contrast [address] SEE NOTES Comments: EXAM: CT BRAIN WITHOUT CONTRASTDATE: 08/19/2019 11:51 CDTINDICATION: Headache.COMPARISON: NoneTECHNIQUE: Routine axial CT images of the brain were obtained from [facility]. Reforma tted images in the sagittal [...] basal ganglia.--This report was dictated by a Sheet Metal Apprentice/Fellow/Physician Rotor Assembler. Lorieave personallyreviewed the images as well as the [...] documented On: 19-Oct-2017 11:15 Appointment; JOSE CARMONA, P.ABlanco Encounter Diagnosis: Problem not documented On: 29-Oct-2017 13:00 Appointment; JOSE CARMONA, P.ABlanco Encounter Diagnosis: [...] Problem not documented On: 14-Apr-2019 14:30 Appointment; ALYA STEEL APRN Encounter Diagnosis: Problem not documented [...] Problem not documented On: 11-Aug-2019 13:30 [facility] Encounter Diagnosis: Problem not documented On: 11-Aug-2019 14:00
--- OUTSIDE RECORDS SUMMARY | 2019-09-10 11:28 | XMS REPORT | Summary of Care ---
Author Author Taylor Rae Organization Unknown Address [facility] Phone Unavailable Care Team Providers Care Event Executive Name Role Phone Taylor Rae Unavailable Unavailable AYLA STEEL APRN Unavailable Unavailable ROGELIO KAM [place], ISREAL Melton Unavailable Unavailable RYANNE CORREA, PRADEEP Villegas Unavailable Unavailable SHANTELLE HOYTP, JOEL Unavailable Unavailable Aspen KAM, Chetan Unavailable Unavailable CHRISTOFER Farmer, VANI Unavailable Unavailable CHRISTOFER KAM [place], VANI CORBETT Unavailable Unavailable ROGELIO Farmer, ISREAL [...] Probiotic CAPS * Refills: 0 Active Nystatin 562701 UNIT/GM External Cream APPLY A THIN LAYER [...] Procedure Dates Details MRI Brain wo contrast 56513 Date: 23-Aug-2019 History of Hysterectomy Completed History of Bladder Surgery Completed History of Gallbladder surgery Completed History of Hysterectomy total Completed History of CABG Completed Immunization Name Dates Details Tdap (Adacel) on: Jun-2002 Pneumo on: Jun-2009 DT on: 23-Sep-2010 Fluzone INJ Lot #: [id number] on: 25-Apr-2013 Influenza on: Mar-2014 Zoster (Zostavax) on: 08-Mar-2014 Prevnar 13 Intramuscular Suspension Lot #: [id number] on: 21-Sep-2014 Fluzone INJ Lot #: [id number] on: 09-Feb-2015 Fluzone Quadrivalent 0.5 ML Intramuscular Suspension Prefilled Syringe Lot #: [id number] on: 20-Mar-2016 Fluzone High-Dose 0.5 ML Intramuscular Suspension Prefilled Syringe Lot #: [id number] on: 23-Apr-2017 Fluzone Quadrivalent 0.5 ML Intramuscular Suspension Lot #: [id number] on: 09-Mar-2018 Flucelvax Quadrivalent Intramuscular Suspension Lot #: [id number] on: 30-Mar-2019 Family History Name Dates Details [...] is approximately 13% higher for peopleidentified as -Palestinian. eGFR NON- 86 {ML/MIN/1.7} (Normal) Range: > [...] 7.5-12.5 ABSOLUTE NEUTROPHILS 4320 {cells/uL} (Normal) Range: 5883-5423 ABSOLUTE LYMPHOCYTES 2280 {cells/uL} (Normal) Range: 850-3900 ABSOLUTE MONOCYTES 630 {cells/uL} (Normal) Range: 200-950 ABSOLUTE EOSINOPHILS 210 {cells/uL} (Normal) Range: 15-500 ABSOLUTE BASOPHILS 60 {cells/uL} (Normal) Range: 0-200 NEUTROPHILS 57.6 % (Normal) LYMPHOCYTES 30.4 % (Normal) MONOCYTES 8.4 % (Normal) EOSINOPHILS 2.8 % (Normal) BASOPHILS 0.8 % (Normal) 8-Dnb-088974:30 [[facility]] VITAMIN B12 VITAMIN B12 682 pg/ml (Normal) Range: 200-1100 7-Rau-491763:30 [[facility]] TSH, 3RD GENERATION W/REFLEX TO FT4 Comments: REPORT COMMENT:FASTING:NO TSH, 3RD GENERATION W/REFLEX TO FT4 1.58 {MIU/L} (Normal) Range: 0.40-4.50 11-Aug-20190:00 [[facility]] CULTURE, URINE, ROUTINE CULTURE Comments: CULTURE, URINE, ROUTINE Micro Number: [id number] Test Status: Final Specimen Source: URINE Specimen Quality: Adequate Result: No Growth 64-Ses-875396:40 CT Brain wo contrast [address] SEE NOTES Comments: EXAM: CT BRAIN WITHOUT CONTRASTDATE: 08/19/2019 11:51 CDTINDICATION: Headache.COMPARISON: NoneTECHNIQUE: Routine [place] CT images [place] [facility] [place] Reforma tted images in the sagittal and [...] basal ganglia.--This report was dictated by a Barge Worker/Fellow/Physician Design Maker. Ihave personallyreviewed the images as well as [...] Problem not documented On: 16-Mar-2018 11:00 [facility] Encounter Diagnosis: Problem not documented On: [...] Problem not documented On: 11-Aug-2019 13:30 Appointment; TRUMANJOANNA LITTLE Encounter Diagnosis: Problem not documented On: 11-Aug-2019 14:00
--- OUTSIDE RECORDS SUMMARY | 2019-09-10 11:29 | XMS REPORT | Summary of Care ---
Author Author REGINA Farmer, CHETAN Velazquez Unknown Address Unknown Phone Unavailable Care Team Providers Care Steamtable Attendant Railroad Name Role Phone AYLA STEEL APRN Unavailable Unavailable REGINA Farmer, CHETAN Unavailable Unavailable ROGELIO KAM [place], ISREAL Melton Unavailable Unavailable RYANNE CORREA, PRADEEP Villegas Unavailable Unavailable SHANTELLE HOYTP, JOEL Unavailable Unavailable Regina KAM, Chetan Unavailable Unavailable CHRISTOFER Farmer, VANI Unavailable Unavailable CHRISTOFER KAM ME, VANI CORBETT Unavailable Unavailable ROGELIO Farmer, ISREAL [...] Bilateral leg cramps (729.82, R25.2) Status: Active Seasonal allergic rhinitis (477.9, J30.2) [...] vitamin deficiency screening (V77.99, Z13.21) Status: Active Anxiety (300.00, F41.9) Status: Active Essential hypertension (401.9, I10) Status: Active Heart palpitations (785.1, R00.2) Status: Active Palpitations (785.1, R00.2) Status: Active Medications Name Dates Details Atorvastatin [...] Probiotic CAPS * Refills: 0 Active Nystatin 373243 UNIT/GM External Cream APPLY A THIN LAYER [...] Procedure Dates Details MRI Brain wo contrast 35212 Date: 23-Aug-2019 [N] 2D Echo complete, with Doppler 37178 Date: 06-Sep-2019 History of Hysterectomy Completed History of Bladder Surgery Completed History of Gallbladder surgery Completed History of Hysterectomy total Completed History of CABG Completed Immunization Name Dates Details Tdap (Adacel) on: Jun-2002 Pneumo on: Jun-2009 DT on: 23-Sep-2010 Fluzone INJ Lot #: [id number] on: 25-Apr-2013 Influenza on: Mar-2014 Zoster (Zostavax) on: 08-Mar-2014 Prevnar 13 Intramuscular Suspension Lot #: [id number] on: 21-Sep-2014 Fluzone INJ Lot #: [id number] on: 09-Feb-2015 Fluzone Quadrivalent 0.5 ML Intramuscular Suspension Prefilled Syringe Lot #: [id number] on: 20-Mar-2016 Fluzone High-Dose 0.5 ML Intramuscular Suspension Prefilled Syringe Lot #: [id number] on: 23-Apr-2017 Fluzone Quadrivalent 0.5 ML Intramuscular Suspension Lot #: [id number] on: 09-Mar-2018 Flucelvax Quadrivalent Intramuscular Suspension Lot #: [id number] on: 30-Mar-2019 Family History Name Dates Details [...] blood pressure 80 mm[Hg] Status: Comments: Location: [facility]; Position: Sitting Heart Rate 77 /min Status: [...] is approximately 13% higher for peopleidentified as -Uruguayan. eGFR NON- 86 {ML/MIN/1.7} (Normal) Range: > [...] 7.5-12.5 ABSOLUTE NEUTROPHILS 4320 {cells/uL} (Normal) Range: 3704-7749 ABSOLUTE LYMPHOCYTES 2280 {cells/uL} (Normal) Range: 850-3900 ABSOLUTE MONOCYTES 630 {cells/uL} (Normal) Range: 200-950 ABSOLUTE EOSINOPHILS 210 {cells/uL} (Normal) Range: 15-500 ABSOLUTE BASOPHILS 60 {cells/uL} (Normal) Range: 0-200 NEUTROPHILS 57.6 % (Normal) LYMPHOCYTES 30.4 % (Normal) MONOCYTES 8.4 % (Normal) EOSINOPHILS 2.8 % (Normal) BASOPHILS 0.8 % (Normal) 6-Pbo-486812:30 [[facility]] VITAMIN B12 VITAMIN B12 682 pg/ml (Normal) Range: 200-1100 9-Kdh-030274:30 [[facility]] TSH, 3RD GENERATION W/REFLEX TO FT4 Comments: REPORT COMMENT:FASTING:NO TSH, 3RD GENERATION W/REFLEX TO FT4 1.58 {MIU/L} (Normal) Range: 0.40-4.50 11-Aug-20190:00 [[facility]] CULTURE, URINE, ROUTINE CULTURE Comments: CULTURE, URINE, ROUTINE Micro Number: [id number] Test Status: Final Specimen Source: URINE Specimen Quality: Adequate Result: No Growth 46-Kjj-187501:40 CT Brain wo contrast [address] SEE NOTES Comments: EXAM: CT BRAIN WITHOUT CONTRASTDATE: 08/19/2019 11:51 CDTINDICATION: Headache.COMPARISON: NoneTECHNIQUE: Routine axial CT images [facility] Reforma tted images in the sagittal and [...] basal ganglia.--This report was dictated by a Estimation Manager/Fellow/Physician Sample Examiner. Reina personallyreviewed the images as well as the interpretation and agree with the findings.Read by: Sarabjit Chiu MD Resident/Fellow/PhysicianAssistant: Sarabjit Chiu MDDictated Date/time: 08/19/19 12:06Electronically Signed by: Gagan Pathak MD 08/18/2012:14FINAL REPORT Plan of Care Name Dates Details Planned Observations [N] 2D Echo complete, with Doppler 21757 On: 07-Mar-2020 Intent Planned Goals not documented Planned Encounters Appointment; DAE SARAH M.D. On: 20-Jan-2020 13:45 Appointment; PRADEEP PEARL D.O. On: 14-May-2020 14:10 Interventions Provided Plan* 08/2019 24h holter monitor: SR, rare AT * Discussed with patient- refused bb, we will follow closely for now Instructions Name Dates Details Instructions not documented [...] Problem not documented On: 16-Mar-2018 11:00 [facility] En[facility] Diagnosis: Problem [...] Problem not documented On: 14-Feb-2019 13:40 Appointment; AYAL STEEL APRN Encounter Diagnosis: Problem [...] Problem not documented On: 11-Aug-2019 13:30 [facility] Encounter Diagnosis: Problem not documented On: 11-Aug-2019 14:00 Appointment; CHETAN TAPIA M.D. Encounter Diagnosis: Problem not documented On: 06-Sep-2019 14:40
--- OUTSIDE RECORDS SUMMARY | 2019-09-10 11:29 | XMS REPORT | Summary of Care ---
Author Author Bertha Alfred M.A. Organization Unknown Address [facility] Phone Unavailable Care Team Providers Care Cmo & President Name Role Phone Bertha Alfred M.A. Unavailable Unavailable MILVIA IBRAHIM, AYLA Unavailable Unavailable ROGELIO KAM [place], ISREAL Melton Unavailable Unavailable RYANNE CORREA, PRADEEP Villegas Unavailable Unavailable SHANTELLE HOYTP, JOEL Unavailable Unavailable Aspen KAM, Chetan Unavailable Unavailable CHRISTOFER Farmer, VANI Unavailable Unavailable CHRISTOFER KAM [place], AVNI CORBETT Unavailable Unavailable ROGELIO Farmer, ISREAL Unavailable [...] Probiotic CAPS * Refills: 0 Active Nystatin 206376 UNIT/GM External Cream APPLY A THIN LAYER [...] Procedure Dates Details MRI Brain wo contrast 66427 Date: 23-Aug-2019 [N] 2D Echo complete, with Doppler 00031 Date: 06-Sep-2019 History of Hysterectomy Completed History of Bladder Surgery Completed History of Gallbladder surgery Completed History of Hysterectomy total Completed History of CABG Completed Immunization Name Dates Details Tdap (Adacel) on: Jun-2002 Pneumo on: Jun-2009 DT on: 23-Sep-2010 Fluzone INJ Lot #: [id number] on: 25-Apr-2013 Influenza on: Mar-2014 Zoster (Zostavax) on: 08-Mar-2014 Prevnar 13 Intramuscular Suspension Lot #: [id number] on: 21-Sep-2014 Fluzone INJ Lot #: [id number] on: 09-Feb-2015 Fluzone Quadrivalent 0.5 ML Intramuscular Suspension Prefilled Syringe Lot #: [id number] on: 20-Mar-2016 Fluzone High-Dose 0.5 ML Intramuscular Suspension Prefilled Syringe Lot #: [id number] on: 23-Apr-2017 Fluzone Quadrivalent 0.5 ML Intramuscular Suspension Lot #: [id number] on: 09-Mar-2018 Flucelvax Quadrivalent Intramuscular Suspension Lot #: [id number] on: 30-Mar-2019 Family History Name Dates Details [...] is approximately 13% higher for peopleidentified as -Chadian. eGFR NON- 86 {ML/MIN/1.7} (Normal) Range: > [...] 7.5-12.5 ABSOLUTE NEUTROPHILS 4320 {cells/uL} (Normal) Range: 2811-1045 ABSOLUTE LYMPHOCYTES 2280 {cells/uL} (Normal) Range: 850-3900 ABSOLUTE MONOCYTES 630 {cells/uL} (Normal) Range: 200-950 ABSOLUTE EOSINOPHILS 210 {cells/uL} (Normal) Range: 15-500 ABSOLUTE BASOPHILS 60 {cells/uL} (Normal) Range: 0-200 NEUTROPHILS 57.6 % (Normal) LYMPHOCYTES 30.4 % (Normal) MONOCYTES 8.4 % (Normal) EOSINOPHILS 2.8 % (Normal) BASOPHILS 0.8 % (Normal) 2-Dxg-281899:30 [[facility]] VITAMIN B12 VITAMIN B12 682 pg/ml (Normal) Range: 200-1100 3-Lgp-399568:30 [[facility]] TSH, 3RD GENERATION W/REFLEX TO FT4 Comments: REPORT COMMENT:FASTING:NO TSH, 3RD GENERATION W/REFLEX TO FT4 1.58 {MIU/L} (Normal) Range: 0.40-4.50 11-Aug-20190:00 [[facility]] CULTURE, URINE, ROUTINE CULTURE Comments: CULTURE, URINE, ROUTINE Micro Number: [id number] Test Status: Final Specimen Source: URINE Specimen Quality: Adequate Result: No Growth 82-Csu-547925:40 CT Brain wo contrast [address] SEE NOTES Comments: EXAM: CT BRAIN WITHOUT CONTRASTDATE: 08/19/2019 11:51 CDTINDICATION: Headache.COMPARISON: NoneTECHNIQUE: Routine axial CT [facility] Reforma tted images in the sagittal [...] basal ganglia.--This report was dictated by a Carpenter Prototype/Fellow/Physician Bobbin Dumper. Reina personallyreviewed the images as well as the interpretation and agree with the findings.Read by: Sarabjit Chiu MD Resident/Fellow/PhysicianAssistant: Sarabjit Chiu MDDictated Date/time: 08/19/19 12:06Electronically Signed by: Gagan Pathak MD 08/18/2012:14FINAL REPORT Plan of Care Name Dates Details Planned Observations Planned Goals not documented Planned Encounters Appointment; DAE SARAH M.D. On: 20-Jan-2020 13:45 Appointment; KEELEY OJEDA On: 07-Mar-2020 13:00 Appointment; CHETAN TAPIA M.D. On: 07-Mar-2020 14:20 Appointment; PRADEEP PEARL D.O. On: 14-May-2020 14:10 [...] 11-Aug-2019 13:30 [facility] Encounter Diagnosis: Problem not documented On: 11-Aug-2019 14:00
--- OUTSIDE RECORDS SUMMARY | 2019-09-10 11:29 | XMS REPORT | Summary of Care ---
Author Author Dex Hinton Organization Unknown Address Unknown Phone Unavailable Care Team Providers Care Structural Iron Erector Name Role Phone AYLA STEEL APRN Unavailable Unavailable Dex Hinton Unavailable Unavailable ROGELIO KAM CT, ISREAL Melton Unavailable Unavailable RYANNE CORREA, PRADEEP Villegas Unavailable Unavailable SHANTELLE HOYTP, JOEL Unavailable Unavailable Aspen KAM, Chetan Unavailable Unavailable CHRISTOFER Farmer, VANI Unavailable Unavailable CHRISTOFER KAM CT, VANI CORBETT Unavailable Unavailable ROGELIO Farmer, ISREAL [...] Quantity: 90 Refills: 0 AYLA STEEL APRN Start : 07-Apr-2017 Active Vitamin D3 TABS * Refills: 0 Active Probiotic CAPS * Refills: 0 Active Nystatin 910255 UNIT/GM External Cream APPLY A THIN LAYER [...] Procedure Dates Details MRI Brain wo contrast [id number] Date: 23-Aug-2019 [N] 2D Echo complete, with Doppler 24741 Date: 06-Sep-2019 History of Hysterectomy Completed History of Bladder Surgery Completed History of Gallbladder surgery Completed History of Hysterectomy total Completed History of CABG Completed Immunization Name Dates Details Tdap (Adacel) on: Jun-2002 Pneumo on: Jun-2009 DT on: 23-Sep-2010 Fluzone INJ Lot #: [id number] on: 25-Apr-2013 Influenza on: Mar-2014 Zoster (Zostavax) on: 08-Mar-2014 Prevnar 13 Intramuscular Suspension Lot #: [id number] on: 21-Sep-2014 Fluzone INJ Lot #: [id number] on: 09-Feb-2015 Fluzone Quadrivalent 0.5 ML Intramuscular Suspension Prefilled Syringe Lot #: [id number] on: 20-Mar-2016 Fluzone High-Dose 0.5 ML Intramuscular Suspension Prefilled Syringe Lot #: [id number] on: 23-Apr-2017 Fluzone Quadrivalent 0.5 ML Intramuscular Suspension Lot #: [id number] on: 09-Mar-2018 Flucelvax Quadrivalent Intramuscular Suspension Lot #: [id number] on: 30-Mar-2019 Family History Name Dates Details [...] blood pressure 125 mm[Hg] Status: Comments: [place] [facility] [place]: Sitting Diastolic blood pressure 80 mm[Hg] Status: Comments: [place]: [facility] [place] Position: Sitting Heart Rate 77 /min Status: Comments: Location: Brachial Artery; :14 Systolic blood pressure 129 mm[Hg] Status: Comments: [place]: [facility] [place] Position: Supine Diastolic blood pressure 75 mm[Hg] [...] is approximately 13% higher for peopleidentified as -Liberian. eGFR NON- 86 {ML/MIN/1.7} (Normal) Range: > [...] 7.5-12.5 ABSOLUTE NEUTROPHILS 4320 {cells/uL} (Normal) Range: 8928-3181 ABSOLUTE LYMPHOCYTES 2280 {cells/uL} (Normal) Range: 850-3900 ABSOLUTE MONOCYTES 630 {cells/uL} (Normal) Range: 200-950 ABSOLUTE EOSINOPHILS 210 {cells/uL} (Normal) Range: 15-500 ABSOLUTE BASOPHILS 60 {cells/uL} (Normal) Range: 0-200 NEUTROPHILS 57.6 % (Normal) LYMPHOCYTES 30.4 % (Normal) MONOCYTES 8.4 % (Normal) EOSINOPHILS 2.8 % (Normal) BASOPHILS 0.8 % (Normal) 5-Avw-927787:30 [[facility]] VITAMIN B12 VITAMIN B12 682 pg/ml (Normal) Range: 200-1100 6-Auf-974389:30 [[facility]] TSH, 3RD GENERATION W/REFLEX TO FT4 Comments: REPORT COMMENT:FASTING:NO TSH, 3RD GENERATION W/REFLEX TO FT4 1.58 {MIU/L} (Normal) Range: 0.40-4.50 11-Aug-20190:00 [[facility]] CULTURE, URINE, ROUTINE CULTURE Comments: CULTURE, URINE, ROUTINE Micro Number: [id number] Test Status: Final Specimen Source: URINE Specimen Quality: Adequate Result: No Growth [id number]-Ewt-197824:[id number] CT Brain wo contrast [address] SEE NOTES Comments: EXAM: CT BRAIN WITHOUT CONTRASTDATE: 08/19/2019 11:51 CDTINDICATION: Headache.COMPARISON: NoneTECHNIQUE: Routine axial CT images of the brain were obtained from [facility]. Reforma tted images in [...] basal ganglia.--This report was dictated by a Ops Manager/Fellow/Physician Air Conditioning Service Technician. Reina personallyreviewed the images as well as the interpretation and agree with the findings.Read by: Sarabjit Chiu MD Resident/Fellow/PhysicianAssistant: Sarabjit Chiu MDDictated Date/time: 08/19/19 12:06Electronically Signed by: Gagan Pathak MD 08/18/2012:14FINAL REPORT Plan of Care Name Dates Details Planned Observations [N] 2D Echo complete, with Doppler 31647 On: 07-Mar-2020 Intent Planned Goals not documented [...] Problem not documented On: 11-Aug-2019 13:30 Appointment; [facility], JOANNA Encounter Diagnosis: Problem not documented On: 11-Aug-2019 14:00
--- OUTSIDE RECORDS SUMMARY | 2019-09-10 11:30 | XMS REPORT | Summary of Care ---
Author Author Bertha Alfred M.A. Organization Unknown Address [facility] Phone Unavailable Care Team Providers Care Nitrocellulose Maker Name Role Phone Bertha Alfred M.A. Unavailable Unavailable MILVIA IBRAHIM, AYLA Unavailable Unavailable ROGELIO KAM [place], ISREAL [...] Probiotic CAPS * Refills: 0 Active Nystatin 063682 UNIT/GM External Cream APPLY A THIN LAYER [...] Procedure Dates Details MRI Brain wo contrast 70157 Date: 23-Aug-2019 [N] 2D Echo complete, with Doppler 54187 Date: 06-Sep-2019 History of Hysterectomy Completed History of Bladder Surgery Completed History of Gallbladder surgery Completed History of Hysterectomy total Completed History of CABG Completed Immunization Name Dates Details Tdap (Adacel) on: Jun-2002 Pneumo on: Jun-2009 DT on: 23-Sep-2010 Fluzone INJ Lot #: [id number] on: 25-Apr-2013 Influenza on: Mar-2014 Zoster (Zostavax) on: 08-Mar-2014 Prevnar 13 Intramuscular Suspension Lot #: [id number] on: 21-Sep-2014 Fluzone INJ Lot #: [id number] on: 09-Feb-2015 Fluzone Quadrivalent 0.5 ML Intramuscular Suspension Prefilled Syringe Lot #: [id number] on: 20-Mar-2016 Fluzone High-Dose 0.5 ML Intramuscular Suspension Prefilled Syringe Lot #: [id number] on: 23-Apr-2017 Fluzone Quadrivalent 0.5 ML Intramuscular Suspension Lot #: [id number] on: 09-Mar-2018 Flucelvax Quadrivalent Intramuscular Suspension Lot #: [id number] on: 30-Mar-2019 Family History Name Dates Details [...] is approximately 13% higher for peopleidentified as -Guinean. eGFR NON- 86 {ML/MIN/1.7} (Normal) Range: > [...] 7.5-12.5 ABSOLUTE NEUTROPHILS 4320 {cells/uL} (Normal) Range: 6293-2058 ABSOLUTE LYMPHOCYTES 2280 {cells/uL} (Normal) Range: 850-3900 ABSOLUTE MONOCYTES 630 {cells/uL} (Normal) Range: 200-950 ABSOLUTE EOSINOPHILS 210 {cells/uL} (Normal) Range: 15-500 ABSOLUTE BASOPHILS 60 {cells/uL} (Normal) Range: 0-200 NEUTROPHILS 57.6 % (Normal) LYMPHOCYTES 30.4 % (Normal) MONOCYTES 8.4 % (Normal) EOSINOPHILS 2.8 % (Normal) BASOPHILS 0.8 % (Normal) 6-Ptg-146947:30 [[facility]] VITAMIN B12 VITAMIN B12 682 pg/ml (Normal) Range: 200-1100 1-Esi-262195:30 [[facility]] TSH, 3RD GENERATION W/REFLEX TO FT4 Comments: REPORT COMMENT:FASTING:NO TSH, 3RD GENERATION W/REFLEX TO FT4 1.58 {MIU/L} (Normal) Range: 0.40-4.50 11-Aug-20190:00 [[facility]] CULTURE, URINE, ROUTINE CULTURE Comments: CULTURE, URINE, ROUTINE Micro Number: [id number] Test Status: Final Specimen Source: URINE Specimen Quality: Adequate Result: No Growth 37-Hcm-456478:40 CT Brain wo contrast [address] SEE NOTES Comments: EXAM: CT BRAIN WITHOUT CONTRASTDATE: 08/19/2019 11:51 CDTINDICATION: Headache.COMPARISON: NoneTECHNIQUE: Routine axial CT [facility] Reforma tted images [...] basal ganglia.--This report was dictated by a Benzene Washer/Fellow/Physician Supervisor Looping. Reina personallyreviewed the images as well as [...] 13:30 [facility] Diagnosis: Problem not documented On: 11-Aug-2019 14:00
== END 2019-09-10 11:45 | disposition home or self-care (01) ==
LOC: ER 11:15
DX: K04.7 Periapical abscess without sinus (principal); E78.5 Hyperlipidemia, unspecified
CPT/HCPCS: 99283

== ENCOUNTER 2024-10-08 13:14 | Emergency (ER) | payer MEDICARE ==
[~2024-10-08] VITALS: Ht 149.9 cm; Wt 61.9 kg
[~2024-10-08 13:14] MED LIST: PANTOPRAZOLE SO40 MG PO
[2024-10-08 13:25] VITALS: PULSE 93; RESP 20; TEMP 98.3; O2SAT 97
[2024-10-08] MEDS ORDERED: IBUPROFEN600 MG PO (13:34)
[2024-10-08] MEDS ORDERED: CEFDINIR300 MG PO (13:34)
== END 2024-10-08 14:22 | disposition home or self-care (01) ==
LOC: FSED 13:29
DX: R30.0 Dysuria (principal); N39.0 Urinary tract infection, site not specified; E78.5 Hyperlipidemia, unspecified; F41.9 Anxiety disorder, unspecified
CPT/HCPCS: 81003; 99284